=== PATIENT | female | born 1950 | race Caucasian/White ===

== ENCOUNTER → 2016-08-15 | Outpatient (CLI) | payer OTHER ==
[~2016-08-15] MED LIST: ATEN50TA8 PO; CITA20TA9 PO; CLON1TAB PO; DIPH-437 PO; DYZ PO; FIBER PO; GEMF600T3 PO; LEVO175T3 PO; MELO15TA4 PO; SENNTAB23 PO; TRAMTAB5 PO
--- NOTE | 2016-08-21 08:47 | POLYSOMNOGRAPH REPORT ---
REFERRING PERSON: Dr. Rasta Gutiérrez. LIVE SOURCE OPERATOR: Adilia Perez. PRIMARY CARE PHYSICIAN: Dana Gill DO Ms. Cline presents to the sleep lab for a split night sleep study. She states she always feels exhausted and snores heavily. She has a lot of joint pain. Her Ransom Sleepiness Scale score on the evening of this study is not listed. BMI is 34.17. Following the technical and digital specifications of the [employer] (AASM) a standard diagnostic polysomnogram was performed monitoring EEG, EOG, EMG (chin and leg deviations), oxygen saturation, body position, digital video, respiratory effort and airflow. The sleep Stage and event scoring was based on the AASM Manual for the Scoring of Sleep and Associated Events 2007 edition. Apneas are defined as a drop in the peak thermal sensor excursion by >90% of baseline for at least 10 seconds. Hypopneas were scored using the 4% oxygen desaturation rule (4A-[employer]) and a decrease in the nasal pressure excursions by >30% of baseline for at least 10 seconds. Respiratory effort-related arousal (RERA's) is defined as a sequence of breaths lasting at least 10 seconds characterized by increasing respiratory effort or flattening of the nasal pressure waveform leading to an arousal from sleep when the sequence of breaths does not meet criteria for an apnea or hypopnea. Apnea Hypopnea index (AHI) is defined as the number of apneas and hypopneas occurring in an hour of sleep. Respiratory disturbance index (RDI) is defined as the number of apneas, hypopneas, and RERA's occurring in an hour of sleep. Ms. Sousa total sleep period time was 329.5 minutes. Total sleep time was 289 minutes. Sleep efficiency was 75%. Latency to sleep onset was 51.5 minutes with wake after sleep onset of 44 minutes. Total non-REM sleep time was 267.5 minutes. She spent 6% of that time in N1 sleep, 87% in N2 sleep and no time in N3 sleep. This is abnormal non-REM sleep architecture with a propensity for superficial sleep. REM latency was 308 minutes. Total REM sleep time was 21.5 minutes or 7% of total sleep time. There were 50 cortical arousals from sleep. 27 of these arousals were spontaneous, 2 were due to respiratory event, 3 due to periodic limb movements of sleep and 20 were due to snoring. There were 80 periodic limb movements noted on this test. Limb movement index was 16.6. Limb movement with arousal index was 0.6. There were no central, 1 obstructive, and no mixed apneas on this test. There were 17 hypopneas and 1 RERA. Apnea-hypopnea index was 3.7, which is normal. 2810 snoring events were recorded. Total sleep time with snoring was 18.1%. Mean saturation during sleep was normal at 92%. Saturations were only less than 89% for 2.1 minutes of sleep time. Premature ventricular complexes were noted on EKG monitoring on this test. Heart rates ranged from a low of 46 to a high of 73 beats per minute. IMPRESSION AND PLAN: A 66-year-old female without evidence of sleep-disordered breathing or nocturnal hypoxemia on this study. She did have some significant snoring. 1. This patient may benefit from oral appliance therapy or ENT referral for primary snoring but she does not appear to have sleep-disordered breathing on this study.
--- NOTE | 2016-08-24 10:08 | CODING QUERY MEDICAL NECESSITY ---
SUPPORTING DIAGNOSIS NEEDED Dr. Gutiérrez, A supporting diagnosis is required for the test/procedure performed on this patient in order for us to be reimbursed by the patient's insurance. Please provide a supporting diagnosis for the following test/procedure listed below next to the test name along with your signature. *If there is no additional diagnosis for this patient that would support the following test/procedure please document that below next to the test/procedure. Test(s)/Procedure(s) that require a supporting diagnosis: * ([id number]) SLEEP STUDY DIAGNOSIS: DATE OF SERVICE: 08/15/16 Provider Signature: Date: Thank you Abel Ko [facility] Information Management Once completed, please kindly fax back to [phone] For questions please call [phone]
== END | disposition home or self-care (01) ==
LOC: C.NEUR 20:00
PROVIDERS: ATTEND Family Medicine
DX: R06.83 Snoring (principal); G47.33 Obstructive sleep apnea (adult) (pediatric)

== ENCOUNTER 2017-05-07 20:17 | Emergency (ER) | payer OTHER ==
[~2017-05-07] VITALS: Ht 152.4 cm; Wt 78.3 kg
[2017-05-07 20:21] VITALS: TEMP 37.6; Ht 152.4 cm; Wt 78.3 kg
[2017-05-07] MEDS ORDERED: BUPIVACAINE 0.25% 30 ML VIAL INFIL STA (20:45)
--- NOTE | 2017-05-07 21:30 | DIAGNOSTIC IMAGING REPORT ---
RIGHT FOURTH FINGER 3 VIEWS HISTORY: carmencita needle in right 4th finger COMPARISON: None. FINDINGS: There is no fracture or dislocation. Soft tissue swelling at the PIP joint. Severe degenerative changes within the DIP and PIP joints. There is a needlelike radiopaque foreign body with the tip likely adjacent to rather within the ulnar side of the PIP joint. This is likely located within the soft tissues and not the bone. IMPRESSION: There is a needlelike radiopaque foreign body with the tip likely adjacent to rather within the ulnar side of the PIP joint. This is likely located within the soft tissues and not the bone. No fractures. Electronically signed by: Thomas Hawkins M.D. 05/07/2017 9:29 PM Dictated Date/Time: 05/07/2017 9:26 PM
[2017-05-07] MEDS ORDERED: CEPH500C PO (21:42)
--- NOTE | 2017-05-07 21:44 | EMERGENCY ROOM VISIT NOTE ---
ED Visit Note First contact with patient: 20:33 CHIEF COMPLAINT: Puncture wound of the hand HISTORY OF PRESENT ILLNESS: This 66-year-old female presents to the emergency department with complaint of puncture wound to the right hand. She states she was reaching into her sewing box and when she pulled her hand out, she had a small fine point carmencita needle stuck in her fourth finger. This occurred approximately one hour ago. The finger has become significantly painful and mildly swollen. The patient was unable to remove the needle from her finger at home, she presents to have this removed here. Her tetanus is up-to-date. She denies any other injuries or concerns. Patient is not diabetic and she is not on any blood thinners. REVIEW OF SYSTEMS: GENERAL: No fever or chills, easy fatigue, loss of appetite, or significant weight change. NEUROLOGICAL: No headache, change in mental status, weakness, numbness, or dizziness. PMH: Reviewed in chart. SOCIAL HISTORY: Patient lives at home. She is not a smoker. PHYSICAL EXAM: Vital Signs: Reviewed Nurse's notes. There is a carmencita needle with the tip lodged deep into the right fourth finger adjacent to the DIP joint. There is mild swelling on the lateral aspect of the finger and tenderness to palpation. Range of motion of the finger is severely limited due to pain. Sensation is intact in the fingertip to light touch. Brisk cap refill. There is no injury noted to the rest of the hand. EMERGENCY DEPARTMENT COURSE: I examined the patient. An x-ray of the right fourth finger was performed to identify the exact location of the needle tip. The needle appears to travel adjacent to and not through the DIP joint or bone. No fracture identified. Verbal consent was obtained from the patient to perform the procedure. A digital block of the right fourth finger was performed using 0.25% bupivacaine. After achieving appropriate anesthesia with digital block, and the surrounding skin was fully cleansed with Betadine solution, the carmencita needle was gently pushed through the cleansed skin applying a steady pressure. The tip was cut using metal cutters. The needle was then pulled back through the insertion site without difficulty. Patient was able to fully flex and extend the DIP after removal of the needle. The wound was allowed to bleed freely for 1 minute, bleeding was then easily controlled. The wound was again cleansed with Betadine and saline. Antibiotic ointment and a Band-Aid were applied to the puncture wounds. Patient tolerated the procedure well. Patient was given a dose of Keflex and sent out on prophylaxis, as well as instructed on close monitoring for developing infection. Patient was instructed to follow closely with her PCP, she verbalized understanding. The patient was discharged home in stable condition and ambulatory. Problem List Medical Problems: (1) Brain tumor Status: Resolved (2) Depression Status: Chronic (3) Hypertension Status: Chronic (4) Hypothyroidism Status: Chronic Current/Historical Medications Scheduled Atenolol (Tenormin), 50 MG PO DAILY Cephalexin Monohydrate (Keflex), 500 MG PO QID Citalopram Hydrobromide (Celexa), 20 MG PO DAILY Gemfibrozil (Lopid), 600 MG PO BID Levothyroxine Sodium (Synthroid), 175 MCG PO DAILY Meloxicam (Mobic), 15 MG PO DAILY Triamterene/Hctz (Dyazide 37.5MG/25MG *), 1 CAP PO DAILY Scheduled PRN Clonazepam (Klonopin), 1 MG PO HS PRN for unkn Tramadol/Acetaminophen (Ultracet), 1 TAB PO Q4 PRN for Pain Allergies Coded Allergies: Procaine (Verified Allergy, Unknown, UNKN, 05/07/17) Aspirin (Verified Adverse Reaction, Unknown, BLEEDING, 05/07/17) Ibuprofen (Unverified Adverse Reaction, Unknown, BLEEDING, 05/07/17) Vital Signs Date Time Temp Pulse Resp B/P (MAP) Pulse Ox O2 Delivery O2 Flow Rate FiO2 05/07/17 22:03 70 18 139/82 98 Room Air 05/07/17 20:21 37.6 70 18 205/78 98 Room Air Medications Administered Medications (Trade) Dose Ordered Sig/Ruby Route Start Time Stop Time Status Last Admin Dose Admin Cephalexin Monohydrate (Keflex 500MG Home Pack) 1 homepack STK-MED ONCE PO 05/07/17 21:57 05/07/17 21:58 DC 05/07/17 21:57 1 HOMEPACK Cephalexin Monohydrate (Keflex Cap) 500 mg STK-MED ONCE PO 05/07/17 21:58 05/07/17 21:59 DC 05/07/17 22:03 500 MG Departure Information Impression Primary Impression: Puncture wound of right ring finger with foreign body without damage to nail Dispostion Home / Self-Care Condition GOOD Prescriptions Cephalexin Monohydrate (Keflex) 500 Mg Cap 500 MG PO QID for 4 Days, #16 CAP Prov: Angela Kinsey CRNP 05/07/17 Referrals Dana Gill D.O. (PCP) Patient Instructions ED Puncture Wound [place] Removed, [facility] Additional Instructions Apply ice to your finger for the next 24 hours to help reduce pain and swelling. Tylenol or ibuprofen as needed for pain. Take as directed. You were prescribed Keflex to be taken 4 times a day for 5 days. This is an antibiotic and is to help prevent infection from developing in your finger. All antibiotics have the potential to cause diarrhea. Stop this medication and contact a medical provider if you were to develop any significant adverse side effects including: wheezing, shortness of breath, passing out, vomiting, or a diffuse rash. Always take antibiotics as directed and COMPLETE the ENTIRE course regardless of the improvement of your symptoms. Monitor the area closely for signs of infection such as redness, swelling, increasing pain, streaking up the hand, fever/chills, or pus drainage. Please seek immediate medical attention if any of these signs or symptoms occur. Problem Qualifiers Primary Impression: Puncture wound of right ring finger with foreign body without damage to nail Encounter type: initial encounter Qualified Codes: S61.244A - Puncture wound with foreign body of right ring finger without damage to nail, initial encounter
[2017-05-07] MEDS ORDERED: CEPHALEXIN MONOHYDRATE 250 MG CAP PO ONE ×2 (21:45→21:58)
[2017-05-07] MEDS ORDERED: CEPHALEXIN 500MG HOME PACK 1 EA BTL PO ONE ×2 (21:45→21:57)
[2017-05-07] MEDS ORDERED: LEVO175T PO (21:46)
[2017-05-07 22:03] VITALS: BP 139/82; PULSE 70; O2SAT 98
== END 2017-05-07 22:05 | disposition home or self-care (01) ==
LOC: C.EDB 20:19 → C.EDD 22:05
DX: S61.244A Puncture wound with foreign body of right ring finger without damage to nail, initial encounter (principal); W27.3XXA Contact with needle (sewing), initial encounter; Z85.841 Personal history of malignant neoplasm of brain; F32.9 Major depressive disorder, single episode, unspecified; I10 Essential (primary) hypertension; E03.9 Hypothyroidism, unspecified

== ENCOUNTER 2018-02-24 23:47 | Emergency (ER) | payer OTHER ==
[~2018-02-24] VITALS: Ht 152.4 cm; Wt 77.0 kg
[~2018-02-24 23:47] MED LIST changes: -DIPH-437 PO; -FIBER PO; +LEVO175T PO; -LEVO175T3 PO; +MELO-84 PO; -MELO15TA4 PO; -SENNTAB23 PO
[2018-02-24 23:57] VITALS: TEMP 36.6; Ht 152.4 cm; Wt 77.0 kg
[2018-02-25] MEDS ORDERED: OPTIRAY 320 IV PRN (00:45)
[2018-02-25] MEDS ORDERED: FENTANYL CITRATE INJ 50 MCG/1 ML 2 ML VIAL IV ONE (00:45)
[2018-02-25] MEDS ORDERED: DIPHTHERIA/TETANUS/PERTUSSIS 0.5 ML SYR/VIAL IM. ONE (00:45)
--- NOTE | 2018-02-25 00:57 | EMERGENCY ROOM VISIT NOTE ---
History Report prepared by Dustin: Yolie Espinal Under the Supervision of: Dr. Agatha De Luna D.O. 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 The patient notes she got pulled down and she hit her head on the steps and her hip on the pavers. She states her dog kept pulling her and the leash got wrapped around her and she felt blood on her head. When she wiggled out of the leash, she could not get up because she was very shaky. She states her head is throbbing but she denies any neck pain or abdominal pain. When asked, the patient knows the date and the day of the week. The patient is not on any blood thinners as she states she "bleeds too freely." She is unsure of when her last tetanus shot was. 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 A total of 10 systems reviewed and were otherwise negative. Past Medical & Surgical Medical Problems: (1) Brain tumor (2) Depression (3) Hypertension (4) Hypothyroidism Social History Smoking Status: Never Smoker Marital Status: Housing Status: lives alone Occupation Status: unemployed, disabled Current/Historical Medications Scheduled Amlodipine Besylate (Norvasc), 2.5 MG PO DAILY Citalopram Hydrobromide (Celexa), 20 MG PO DAILY Clonazepam (Klonopin), 1 MG PO HS Ferrous Sulfate (Ferrous Sulfate), 325 MG PO BID Gemfibrozil (Lopid), 600 MG PO BID Levothyroxine Sodium (Synthroid), 175 MCG PO DAILY Magnesium (Magnesium 250 mg), 250 MG PO BID Meloxicam (Mobic), 15 MG PO DAILY Metoprolol Succinate (Metoprolol Succinate ER), 50 MG PO DAILY Triamterene/Hctz (Maxzide 75MG/50MG), 1 TAB PO DAILY Scheduled PRN Oxycodone/Acetaminophen 5MG/325MG (Percocet 5MG/325MG), 2 TABLETS PO Q4H PRN for Pain Tramadol/Acetaminophen (Ultracet), 1 TAB PO Q4 PRN for Pain Allergies Coded Allergies: Procaine (Verified Allergy, Unknown, UNKN, 02/25/18) Aspirin (Verified Adverse Reaction, Unknown, BLEEDING, 02/25/18) Ibuprofen (Unverified Adverse Reaction, Unknown, BLEEDING, 02/25/18) Physical Exam Vital Signs Date Time Temp Pulse Resp B/P (MAP) Pulse Ox O2 Delivery O2 Flow Rate FiO2 02/25/18 03:30 93 16 148/73 98 Room Air 02/25/18 03:04 93 02/25/18 03:00 99 10 117/78 97 Room Air 02/25/18 02:30 87 13 140/61 97 Room Air 02/25/18 02:00 77 10 143/60 94 Room Air 02/25/18 01:52 75 20 139/74 99 Room Air 02/25/18 01:00 76 22 98 Room Air 02/25/18 00:30 76 22 99 Room Air 02/25/18 00:00 72 14 100 Room Air 02/24/18 23:59 68 02/24/18 23:57 36.6 68 22 193/65 100 Room Air Physical Exam HEENT: Head - normocephalic. 4 cm laceration to the back of her head with a large surrounding hematoma. Pupils are equal, round, and reactive to light. Extraocular eye muscles are intact and sclera are anicteric. Ears - bilaterally patent canals with no evidence of hemotympanum. Nose - moist nasal mucosa without evidence of trauma or discharge. Mouth - moist buccal mucosa with no trauma to the teeth or signs of malocclusion. Neck: The neck is supple and there is no pain to palpation over the posterior cervical spine and no obvious step-offs or deformities. There is no JVD or tracheal deviation. Chest: There are no signs of deformities, contusions or abrasions to the chest wall. There is no obvious crepitus or paradoxical chest rise. Heart: Regular, rate, and rhythm. There is a normal S1 and S2 with no murmurs, clicks, or gallops appreciated. Lungs: Clear to auscultation bilaterally with no wheezes, rales, or rhonchi. Abdomen: Soft, completely nontender, nondistended, with good bowel sounds. There is no sign of trauma such as contusions, abrasions or penetrations. There are no palpable pulsatile masses or hepatosplenomegaly. There is no guarding, rigidity, or rebound noted. Pelvis: Stable to rock and compression. Extremities: Abrasion of the left shoulder and left bicep region. Abrasion over her left forearm. Superficial laceration over the left buttock. There is a large hematoma over the left buttocks. abrasions on the first and second metatarsals of the right foot. Pain with ROM. There are easily palpable peripheral pulses. Neuro: The patient is awake and alert and easily able to follow commands. Muscle strength is 5 out of 5 in all 4 extremities. Otherwise, neuro exam is unremarkable. Back: Pain over the lower thoracic spine. The entire thoracic, lumbar, and sacral spine were palpated. There are no obvious step-offs or deformities noted. There are no obvious signs of trauma such as contusions abrasions penetrations noted to the back. Medical Decision & Procedures ER Provider Diagnostic Interpretation: Radiology results as stated below per my review and the radiologist's interpretation: CT HEAD Findings: Previous craniotomy left frontal bone. Area of encephalomalacia left frontal lobe. No evidence for intracranial hemorrhage or hematoma. No mass effect or midline shift. No evidence for skull fracture. Impression: No acute abnormality in the brain. CT T SPINE Findings: Degenerative changes which are mild throughout the thoracic spine. There is preservation normal thoracic vertebral body heights with no evidence for fracture. No evidence for malalignment. Impression: No evidence for fracture or malalignment thoracic spine. CT ABDOMEN & PELVIS With CONTRAST Findings: The lung bases are clear. The liver and spleen are normal in size and free of mass lesions.The gallbladder, bile ducts, and pancreas are normal. The adrenal gland are unremarkable. The kidneyes are normal in size and contour. No lesion or hydronephrosis. The appendix is unremarkable, as if the rest of the GI tract. Aorta is normal caliber. No adenopathy or extraluminal air. The osseous structures are normal. Large soft tissue hematoma noted superficial to the left initial tuberosity. The hematoma meausues approximately 8 cm x 3 cm and 9 cm in size. No evidence for fracture the pelvis. Impression: Normal enhanced CT of the abdomen and pelvis CT L SPINE Findings: No evidence for fracture lumbar spine. No evidence for fracture the sacrum. Appears to be prior fusion L5-S1. Degenerative changes noted L4-5 ad L2-3 lesser extent L1-2. Impression: No evidence for fracture the lumbar spine or scarum. Radiologist: Bryce Montague MD Laboratory Results 02/25/18 00:50 Red Blood Count 5.30, Mean Corpuscular Volume 79.4, Mean Corpuscular Hemoglobin 28.7, Mean Corpuscular Hemoglobin Concent 36.1, Mean Platelet Volume 11.4, Neutrophils (%) (Auto) 76.1, Lymphocytes (%) (Auto) 12.5, Monocytes (%) (Auto) 7.8, Eosinophils (%) (Auto) 3.0, Basophils (%) (Auto) 0.5, Neutrophils # (Auto) 7.24, Lymphocytes # (Auto) 1.19, Monocytes # (Auto) 0.74, Eosinophils # (Auto) 0.29, Basophils # (Auto) 0.05 02/25/18 00:50 Test 02/25/18 00:50 White Blood Count 9.52 K/uL (4.8-10.8) Red Blood Count 5.30 M/uL (4.2-5.4) Hemoglobin 15.2 g/dL (12.0-16.0) Hematocrit 42.1 % (37-47) Mean Corpuscular Volume 79.4 fL (80-100) Mean Corpuscular Hemoglobin 28.7 pg (25-34) Mean Corpuscular Hemoglobin Concent 36.1 g/dl (32-36) Platelet Count 146 K/uL (130-400) Mean Platelet Volume 11.4 fL (7.4-10.4) Neutrophils (%) (Auto) 76.1 % Lymphocytes (%) (Auto) 12.5 % Monocytes (%) (Auto) 7.8 % Eosinophils (%) (Auto) 3.0 % Basophils (%) (Auto) 0.5 % Neutrophils # (Auto) 7.24 K/uL (1.4-6.5) Lymphocytes # (Auto) 1.19 K/uL (1.2-3.4) Monocytes # (Auto) 0.74 K/uL (0.11-0.59) Eosinophils # (Auto) 0.29 K/uL (0-0.5) Basophils # (Auto) 0.05 K/uL (0-0.2) RDW Standard Deviation 38.7 fL (36.4-46.3) RDW Coefficient of Variation 13.5 % (11.5-14.5) Immature Granulocyte % (Auto) 0.1 % Immature Granulocyte # (Auto) 0.01 K/uL (0.00-0.02) Anion Gap 9.0 mmol/L (3-11) Est Creatinine Clear Calc Drug Dose 55.9 ml/min Estimated GFR () 75.7 Estimated GFR (Non- 65.3 BUN/Creatinine Ratio 31.5 (10-20) Calcium Level 9.4 mg/dl (8.5-10.1) Laboratory results per my review. Medications Administered Medications (Trade) Dose Ordered Sig/Ruby Route Start Time Stop Time Status Last Admin Dose Admin Fentanyl Citrate (Fentanyl Inj) 75 mcg NOW ONCE IV 02/25/18 00:45 02/25/18 00:46 DC 02/25/18 00:45 75 MCG Diphtheria/ Pertussis/Tetanus Vacc (Adacel Inj) 0.5 ml ONCE ONCE IM. 02/25/18 00:45 02/25/18 00:46 DC 02/25/18 01:02 0.5 ML Oxycodone/ Acetaminophen (Percocet 5-325mg Tab) 2 tab NOW ONCE PO 02/25/18 03:30 02/25/18 03:31 DC 02/25/18 03:23 2 TAB Procedure Adacel Inj 0.5 ml IM, Fentanyl Inj 75 mcg IV, Oxycodone/Acetaminophen PO Location: Scalp Total length: 4 cm Complexity: Simple Verbal consent was obtained after the risks and benefits were explained, A time out was taken and the correct patient and site identified. The scalp was prepped with betadine. The target area was anesthetized with 4 ml of 1% lidocaine without epinephrine. Copious irrigation was performed using saline. The skin was re-prepped with betadine, the hair cleared from the wound, and a sterile field set. The wound was explored for foreign bodies and none found. Debridement was not performed. The wound edges were approximated using 9 surgical alphonse in the standard fashion. Hemostasis and excellent approximation was achieved. Antibacterial ointment and a sterile dressing applied. Detailed wound care instructions and signs and symptoms of infection reviewed with the patient. No complications and the patient tolerated the procedure well. ECG Per My Interpretation Indication: altered mental status Rate (beats per minute): 81 Rhythm: sinus rhythm Findings: no acute ischemic change, no ectopy, other (no ST segment elevation) ED Course 0027: Past medical records reviewed. The patient was evaluated in room C6. A complete history and physical exam was performed. Nursing notes and previous electronic medical records were reviewed. IV lock was established and labs were drawn as above. 0045: Ordered Adacel Inj 0.5 ml IM, Fentanyl Inj 75 mcg IV. The patient went for CT scan of the brain, abdomen/pelvis, thoracic spine and lumbar spine. 0206: I checked on the patient at this time. She is more comfortable. The nurse will clean up her head so I can further evaluate that 0330: I repaired the wound on the patient's head. Please see procedure note dictation for this. I used ultrasound to further evaluate the hematoma on the patient's left buttock. I attempted to drain the hematoma with an 18-gauge needle and a 60 cc syringe. I was not able to obtain very much blood. Ordered Oxycodone/Acetaminophen 2 tab PO 0335: I checked the PDMP at this time. There are no red flags. 0336: Upon reevaluation, the patient is feeling better. I discussed findings and results with her. She verbalized agreement of the treatment plan. She was discharged home. 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 Differential diagnosis include skull fracture, intracranial trauma, closed head injury, left hip fracture, pelvis fracture, L spine or T spine fracture, compartment syndrome of the buttocks, as well as others were entertained. Lab results show BUN 29 Creat 0.9 Glucose 125 WBC 9.5 Stable H and H This is a 67-year-old female patient who unfortunately was dragged to the ground by a dog. The patient did strike the back of her head but did not lose consciousness. She did have some altered mental status immediately following the incident. She also complained of severe pain in the left buttocks and low back. CT scan of the brain was unremarkable. CT scan of the abdomen/pelvis, thoracic spine and lumbar spine reveal no acute fractures, however the patient does have a large hematoma to the left buttock. The patient's pain was controlled with analgesia. I attempted to drain the hematoma for comfort but was unsuccessful. The patient was given a prescription for Percocet to use for her more severe discomfort. She was told to return to the emergency department if her symptoms worsened. Patient was encouraged to apply ice to the buttocks and rest with her head elevated. The alphonse can be removed in 10 days. [place] Drug Monitoring Program Search Results: patient reviewed within database, no issues identified Medication Reconcilliation Current Medication List: was personally reviewed by me Blood Pressure Screening Patient's blood pressure: Elevated blood pressure Blood pressure disposition: Elevated BP felt to be situational Impression Primary Impression: Scalp laceration Additional Impressions: Traumatic hematoma of buttock Fall Scribe Attestation The scribe's documentation has been prepared under my direction and personally reviewed by me in its entirety. I confirm that the note above accurately reflects all work, treatment, procedures, and medical decision making performed by me. Departure Information Dispostion Home / Self-Care Prescriptions Oxycodone/Acetaminophen 5MG/325MG (PERCOCET 5MG/325MG) Tab 2 TABLETS PO Q4H Y for Pain, #20 TAB Prov: Agatha De Luna D.O. 02/25/18 Referrals Dana Gill D.O. (PCP) Forms HOME CARE DOCUMENTATION FORM, IMPORTANT VISIT INFORMATION Patient Instructions My [facility] Additional Instructions Rest. Apply ice to the buttocks then switch to heat. Keep abrasions clean with soap and water. Cover with antibiotic ointment Have alphonse removed in 10 days Follow up later today with your PCP for a recheck. percocet - 2 tabs. every 4-6 hours for pain over next 2-3 days. This medication can be addictive Problem Qualifiers Primary Impression: Scalp laceration Encounter type: initial encounter Qualified Codes: S01.01XA - Laceration without foreign body of scalp, initial encounter Additional Impressions: Traumatic hematoma of buttock Encounter type: initial encounter Qualified Codes: S30.0XXA - Contusion of lower back and pelvis, initial encounter Fall Encounter type: initial encounter Qualified Codes: W19.XXXA - Unspecified fall, initial encounter
[2018-02-25 01:01] LABS: BASO % 0.5 %; BASO ABS # 0.05 K/uL (0-0.2); EOS ABS # 0.29 K/uL (0-0.5); HEMATOCRIT 42.1 % (37-47); HEMOGLOBIN 15.2 g/dL (12.0-16.0); IG# 0.01 K/uL (0.00-0.02); LYMPH % 12.5 %; LYMPH ABS # 1.19 K/uL (1.2-3.4); MEAN CELL VOLUME 79.4 fL (80-100); MEAN CORPUSCULAR HEMOGLOBIN 28.7 pg (25-34); MEAN CORPUSCULAR HGB CONC 36.1 g/dl (32-36); MEAN PLATELET VOLUME 11.4 fL (7.4-10.4); MONO % 7.8 %; MONO ABS # 0.74 K/uL (0.11-0.59); NEUT % 76.1 %; NEUT ABS # 7.24 K/uL (1.4-6.5); PLATELET COUNT 146 K/uL (130-400); RED CELL DISTRIBUTION WIDTH CV 13.5 % (11.5-14.5); RED CELL DISTRIBUTION WIDTH SD 38.7 fL (36.4-46.3); WHITE BLOOD COUNT 9.52 K/uL (4.8-10.8)
[2018-02-25 01:19] LABS: CALCIUM 9.4 mg/dl (8.5-10.1); CREATININE 0.92 mg/dl (0.60-1.20); POTASSIUM 3.5 mmol/L (3.5-5.1)
[2018-02-25] MEDS ORDERED: AMLO2.5T PO (02:00)
[2018-02-25] MEDS ORDERED: TPRSR/50 PO (02:00)
[2018-02-25] MEDS ORDERED: FERR1TAB62 PO (02:01)
[2018-02-25] MEDS ORDERED: TRIA75TA53 PO (02:03)
[2018-02-25] MEDS ORDERED: MAGN250T3 PO (02:04)
[2018-02-25] MEDS ORDERED: LIDOCAINE 1% BUFFERED INJ 5 ML VIAL INFIL ONE (02:30)
[2018-02-25 03:30] VITALS: BP 148/73; PULSE 93; O2SAT 98
[2018-02-25] MEDS ORDERED: OXYCODONE/ACETAMINOPHEN 5-325 TAB PO ONE (03:30)
[2018-02-25] MEDS ORDERED: OXYC-57 PO (03:34)
--- NOTE | 2018-02-25 06:32 | DIAGNOSTIC IMAGING REPORT ---
CT HEAD WITHOUT CONTRAST (CT) CLINICAL HISTORY: Head pain status post trauma COMPARISON STUDY: By [id number] TECHNIQUE: Axial CT of the brain is performed from the vertex to the skull base. IV contrast was not administered for this examination. A dose lowering technique was utilized adhering to the principles of ALARA. CT DOSE: 2583.97 mGy.cm FINDINGS: No intra or extra-axial mass lesions are visualized. There is no CT evidence of acute cortical infarction. There is no evidence of midline shift. There is no acute hemorrhage. No calvarial fractures are visualized. There are minimal white matter hypodensities likely on a small vessel basis. There are postsurgical changes of a left frontal craniotomy. There is left frontal lobe encephalomalacia. There is no evidence of pathologic ventricular dilatation. There is no evidence of acute sinusitis. There is minor left parietal occipital scalp edema. IMPRESSION: No acute intracranial findings Electronically signed by: Avel Kate M.D. 02/25/2018 6:31 AM Dictated Date/Time: 02/25/2018 6:28 AM
--- NOTE | 2018-02-25 06:42 | DIAGNOSTIC IMAGING REPORT ---
CT ABD/PELVIS IV CONTRAST ONLY CLINICAL HISTORY: Abdominal and pelvic pain status post trauma COMPARISON STUDY: None. TECHNIQUE: Following the IV administration of 92 mL of Optiray-320, CT scan of the abdomen and pelvis was performed from the lung bases to the proximal femurs. Images are reviewed in the axial, sagittal, and coronal planes. IV contrast was administered without complication. A dose lowering technique was utilized adhering to the principles of ALARA. CT DOSE: FINDINGS: Lower chest: There is minor basilar atelectasis. There is an 11 mm lung cyst within the right middle lobe. Liver: There is mild hepatic steatosis. No focal masses are visualized. There are no perihepatic fluid collections. Gallbladder: Surgically absent Spleen: The spleen is mildly enlarged measuring 13 cm. Pancreas: Unremarkable. Adrenal glands: Unremarkable. Kidneys: There is no evidence of acute renal injury. There is a 1 cm left renal hypodensity which exceeds water attenuation and is therefore indeterminate. Additional smaller subcentimeter hypodensities are also present. Bowel: There are no transition zones indicate bowel obstruction. There are no extraluminal gas collections. There is no interloop fluid. The appendix appears normal. There is no acute diverticulitis. Peritoneum: There is no intraperitoneal free air or abdominal ascites. Vasculature: The abdominal aorta is normal in course and caliber. Adenopathy: None. Pelvic viscera: The bladder, and pelvic viscera are unremarkable. Skeletal structures: No destructive osseous lesions are seen. No fractures are evident. There is a left gluteal and posterior sacral region soft tissue hematoma measuring 8.3 x 3.1 x 11 cm. IMPRESSION: 1. No evidence of solid organ injury 2. Left gluteal and posterior sacral region soft tissue hematoma measuring approximately 8 x 3 x 11 cm. Electronically signed by: Avel Kate M.D. 02/25/2018 6:40 AM Dictated Date/Time: 02/25/2018 6:33 AM
--- NOTE | 2018-02-25 06:44 | DIAGNOSTIC IMAGING REPORT ---
THORACIC SPINE WITHOUT CT DOSE: HISTORY: Pain eval for fracture - fall TECHNIQUE: Multiaxial CT images of the thoracic spine were performed and reformatted in the sagittal and coronal plane without the use of contrast. A dose lowering technique was utilized adhering to the principles of ALARA. COMPARISON: None. FINDINGS: No fractures. No subluxation. Paraspinal soft tissues are unremarkable. Moderate degenerative disc change throughout. No evidence for compression deformity. No evidence of bony compromise of the spinal canal. IMPRESSION: Mild/moderate degenerative change. No acute process. The above report was generated using voice recognition software. It may contain grammatical, syntax or spelling errors. Electronically signed by: Bruno León M.D. 02/25/2018 6:42 AM Dictated Date/Time: 02/25/2018 6:41 AM
--- NOTE | 2018-02-25 07:07 | DIAGNOSTIC IMAGING REPORT ---
LUMBAR SPINE WITHOUT HISTORY: 67 years-old Female reconstruct from abd/pelvis CT - eval for fx acute low back pain status post fall COMPARISON: Thoracic spine CT and CT abdomen and pelvis of same day. TECHNIQUE: Multiple axial CT images of the lumbar spine were obtained without the use of IV contrast. Coronal and sagittal reformatted images were obtained from the axial data set and were submitted for review. A dose lowering technique was used consistent with the principals of ALARA. FINDINGS: Bones appear mildly demineralized. Study is limited secondary to patient positioning. Mild convex right curvature of the mid lumbar spine. No evidence of acute sacral insufficiency fracture. The imaged sacrum and iliac bones appear to be intact. Moderate degenerative changes of the SI joints. Severe facet arthrosis at L3-L4, L4-L5 and L5-S1. Severe intervertebral disc space narrowing with partial bony fusion at L5-S1. 5 mm anterolisthesis L4 on L5 is likely on a degenerative basis. Vacuum disc phenomenon noted at L2-L3 and L4-L5. Moderate L4-L5 intervertebral disc space narrowing. Multilevel spondylitic spurring without acute fracture or subluxation. Broad-based posterior disc bulge with spondylitic spurring, ligamentum flavum thickening and facet arthropathy at L2-L3 causes moderate to severe central canal and mild bilateral foraminal narrowing. Circumferential annular disc bulge with severe facet arthrosis and ligamentum flavum thickening at L3-L4 causes severe central canal, mild to moderate right and mild left foraminal stenosis. Partially imaged hematoma of the subcutaneous left gluteal tissues better seen on CT abdomen and pelvis of same day. Extensive calcification of the aorta. IMPRESSION: 1. No acute fracture or subluxation of the lumbar spine. 2. Multilevel degenerative changes as detailed above with central canal and foraminal narrowing most notably seen at L2-L3 and L4-L5. 3. Partially imaged hematoma of the subcutaneous left gluteal tissues, better seen on CT abdomen and pelvis of same day. The above report was generated using voice recognition software. It may contain grammatical, syntax or spelling errors. Electronically signed by: Les Ramirez M.D. 02/25/2018 7:06 AM Dictated Date/Time: 02/25/2018 7:00 AM
== END 2018-02-25 03:55 | disposition home or self-care (01) ==
LOC: EDBD 23:47 → C.EDC 23:48
DX: S01.91XA Laceration without foreign body of unspecified part of head, initial encounter (principal); S31.801A Laceration without foreign body of unspecified buttock, initial encounter; S40.212A Abrasion of left shoulder, initial encounter; S50.812A Abrasion of left forearm, initial encounter; W01.198A Fall on same level from slipping, tripping and stumbling with subsequent striking against other object, initial encounter; Z23 Encounter for immunization; I10 Essential (primary) hypertension; E03.9 Hypothyroidism, unspecified; F32.9 Major depressive disorder, single episode, unspecified; Z79.899 Other long term (current) drug therapy; Z88.1 Allergy status to other antibiotic agents; Z88.6 Allergy status to analgesic agent

== ENCOUNTER 2020-01-09 17:39 | Inpatient (IN) ==
[2020-01-09 18:08] LABS: Basophils # (auto) 0.09 K/uL (0-0.2); Basophils % (auto) 1.3 %; Eosinophils # (auto) 0.46 K/uL (0-0.5); Eosinophils % (auto) 6.7 %; Hemoglobin 14.9 g/dL (12.0-16.0); Immature Granulocytes # (auto) 0.03 K/uL (0.00-0.02); Immature Granulocytes % (auto) 0.4 %; Lymphocytes # (auto) 1.97 K/uL (1.2-3.4); Lymphocytes % (auto) 28.6 %; Mean Corpuscular Hemoglobin 28.5 pg (25-34); Mean Corpuscular Hgb Conc 34.7 g/dL (32-36); Mean Corpuscular Volume 82.4 fL (80-100); Monocytes # (auto) 0.56 K/uL (0.11-0.59); Monocytes % (auto) 8.1 %; Neutrophils # (auto) 3.78 K/uL (1.4-6.5); Neutrophils % (auto) 54.9 %; Platelet Count 173 K/uL (130-400); RDW Coefficient of Variation 13.5 % (11.5-14.5); RDW Standard Deviation 40.2 fL (36.4-46.3); Red Blood Count 5.22 M/uL (4.2-5.4); White Blood Count 6.89 K/uL (4.8-10.8)
[2020-01-09 18:20] LABS: Partial Thromboplastin Time 29.1 Seconds (21.0-31.0); Prothrombin Time 10.8 Seconds (9.0-12.0)
[2020-01-09 18:24] LABS: BUN Creatinine Ratio 33.1 (10-20); Blood Urea Nitrogen 37 mg/dl (7-18); Calcium 9.3 mg/dl (8.5-10.1); Carbon Dioxide 26 mmol/L (21-32); Chloride 104 mmol/L (98-107); Creatinine Clr Calc Pharmacy 44.1 ml/min; Est GFR (African American) 59.5; Est GFR (Non-African American) 51.3; Glucose 127 mg/dl (70-99); Lipase 236 U/L (73-393); Potassium 3.6 mmol/L (3.5-5.1); Sodium 137 mmol/L (136-145)
[2020-01-09 18:29] LABS: Troponin I < 0.015 ng/ml (0-0.045)
--- NOTE | 2020-01-09 18:29 | XRay Report ---
XR chest 2V PA/lateral HISTORY: 69 years-old Female Chest Pain acute atypical chest pain COMPARISON: None TECHNIQUE: PA and lateral views of the chest FINDINGS: Cardiomediastinal and hilar silhouettes are within normal limits. Lungs are mildly hyperinflated. No pneumothorax, pleural effusion, airspace consolidation or overt pulmonary edema. Bones of the chest a ppear grossly intact. Degenerative changes of the shoulders and spine. Mild rotation on the lateral v iew. Surgical clips of the upper abdomen suggest prior cholecystectomy. IMPRESSION: No acute process. ACT 112: Negative or not required by law. The above report was generated using voice recognition software. It may contain grammatical, syntax o r spelling errors. Electronically signed by: Les Ramirez M.D. 01/09/2020 6:28 PM
--- NOTE | 2020-01-09 19:01 | History & Physical Report ---
Date of Service January 09, 2020 Assessment & Plan (1) Chest pain: This is a 69yo F with a PMH of HTN, hypothyroidism, CKD III, high triglycerides and other medical problems listed below who was sent from PCP's office with worsening chest pain x 1 month. -Worsening intermittent CP x 1 month that was relieved today with NTG in PCP's office -Initial troponin negative. EKG with sinus bradycardia. CXR without acute process in chest -History of exercise stress test in 2018 that was indeterminate for inducible ischemia due to failure to achieve 85% of max HR, per records -Plan: Trend serial cardiac enzymes, fasting lipid panel and hgb a1c in AM, check 2D echo, repeat EKG in am, NPO after midnight for possible nuclear ST vs OP follow up -Routine cardiology consult placed (2) Hypertension: Continue Amlodipine, Maxzide, Toprol (3) Hypothyroidism: Continue levothyroxine (4) CKD (chronic kidney disease), stage III: Kidney function at baseline (5) Hypertriglyceridemia: Continue gemfibrozil DVT Ppx: SQ heparin Code status: FULL PCP: Elinor Dispo: Observation med tele. Plan to return home once medically stable. Patient seen in collaboration with Dr. Gutiérrez. Please see addendum. History of Present Illness Primary Care Provider: Dana Gill, This is a 69yo F with a PMH of HTN, hypothyroidism, CKD III, high triglycerides and other medical problems listed below who was sent from PCP's office with worsening chest pain x 1 month. Patient endorses intermittent left sided chest pain for the past month that lasts for 15-30 minutes at a time. Pain is described as a squeezing pain that is left sided with radiation to center of chest. Is made with with exertion but also occurs sometimes at rest. Denies associated SOB, nausea or vomiting. Denies history of GERD. Pain has been worse for the past few days and patient saw Dr. Aldrich in clinic today. Was ntg in clinic and pain completely resolved. Was then given a baby aspirin and sent to ED for further evaluation. Patient denies known history of CAD but did undergo exercise stress test in 2018 that was indeterminate for inducible ischemia due to failure to achieve 85% of max HR, per records. Currently, patient is chest pain free. Denies fever, chills, headache, lightheadedness, visual changes, cough, palpitations, shortness of breath, abdominal pain, nausea, vomiting, dysuria, constipation or diarrhea. History of epistaxis so was told to avoid aspirin and NSAIDs but has been tolerating baby aspirin for 2 weeks without issue. Also taking daily Meloxicam for arthritic pain. Allergies Allergy/AdvReac Type Severity Reaction Status Date / Time procaine Allergy Unknown UNKN Verified 01/09/20 19:13 aspirin AdvReac Mild BLEEDING Verified 01/09/20 19:58 ibuprofen AdvReac Unknown BLEEDING Unverified 01/09/20 19:13 Home Medications Home Medications Medication Instructions Recorded Confirmed Type amlodipine [Norvasc] 5 mg PO BID 01/09/20 01/09/20 History aspirin 81 mg PO QAM 01/09/20 01/09/20 History citalopram [Celexa] 20 mg PO QAM 01/09/20 01/09/20 History clonazepam [Klonopin] 1 mg PO HS 01/09/20 01/09/20 History ferrous sulfate [iron] 325 mg PO QAM 01/09/20 01/09/20 History gemfibrozil [Lopid] 600 mg PO BID 01/09/20 01/09/20 History levothyroxine [Synthroid] 150 mcg PO MOWEFR 01/09/20 01/09/20 History levothyroxine [Synthroid] 175 mcg PO SUTUTHSA 01/09/20 01/09/20 History magnesium citrate 100 mg PO BID 01/09/20 01/09/20 History meloxicam [Mobic] 15 mg PO HS 01/09/20 01/09/20 History metoprolol succinate [Toprol XL] 50 mg PO QAM 01/09/20 01/09/20 History tramadol-acetaminophen [Ultracet] 1 tab PO QID PRN 01/09/20 01/09/20 History triamterene-hydrochlorothiazid 1 tab PO QAM 01/09/20 01/09/20 History [Maxzide] Past Med/Surg History Medical History CKD (chronic kidney disease), stage III Hypertension (Chronic) Hypertriglyceridemia Hypothyroidism (Chronic) Thrombocytopenia Surgical History (Updated 01/09/20 @ 19:57 by Stefani Piper PA-C) History of meningioma of the brain History of partial hysterectomy Hx of appendectomy S/P cholecystectomy Family History Other Heart disease Stroke Social History Feels Safe at Home: Yes Smoking Status: Former smoker Hx Alcohol Use: No Hx Substance Use: No Review of Systems Review of Systems: At least ten systems reviewed and negative except as noted in the HPI. Physical Exam Physical Exam: Please see Dr. Gutiérrez's addendum for physical exam Results & Data Results & Data ([facility]) Vital Signs (Past 12 Hours) Vital Signs Temp Pulse Pulse Resp BP BP Pulse Ox 01/09/20 18:13 56 L 19 129/63 97 01/09/20 17:50 36.9 C 63 14 173/96 H 97 Laboratory Results Short CBC 01/09/20 01/09/20 01/09/20 Range/Units 17:50 17:50 17:50 WBC 6.89 (4.8-10.8) K/uL RBC 5.22 (4.2-5.4) M/uL Hgb 14.9 (12.0-16.0) g/dL Hct 43.0 (37-47) % MCV 82.4 (80-100) fL MCH 28.5 (25-34) pg MCHC 34.7 (32-36) g/dL RDW Std Deviation 40.2 (36.4-46.3) fL RDW Coeff of Quoc 13.5 (11.5-14.5) % Plt Count 173 (130-400) K/uL MPV 12.0 H (7.4-10.4) fL Immature Gran % (Auto) 0.4 % Neut % (Auto) 54.9 % Lymph % (Auto) 28.6 % [place] % (Auto) 8.1 % Eos % (Auto) 6.7 % Baso % (Auto) 1.3 % Immature Gran # (Auto) 0.03 H (0.00-0.02) K/uL Neut # (Auto) 3.78 (1.4-6.5) K/uL Lymph # (Auto) 1.97 (1.2-3.4) K/uL [place] # (Auto) 0.56 (0.11-0.59) K/uL Eos # (Auto) 0.46 (0-0.5) K/uL Baso # (Auto) 0.09 (0-0.2) K/uL PT 10.8 (9.0-12.0) Seconds INR 1.0 (0.9-1.1) APTT 29.1 (21.0-31.0) Seconds PTT Ratio 1.0 Sodium 137 (136-145) mmol/L Potassium 3.6 (3.5-5.1) mmol/L Chloride 104 (98-107) mmol/L Carbon Dioxide 26 (21-32) mmol/L Anion Gap 8.0 (3-11) BUN 37 H (7-18) mg/dl Creatinine 1.11 (0.6-1.2) mg/dl Est Cr Clr Drug Dosing 44.1 ml/min Est GFR ( Amer) 59.5 Est GFR (Non-Af Amer) 51.3 BUN/Creatinine Ratio 33.1 H (10-20) Glucose 127 H (70-99) mg/dl Calcium 9.3 (8.5-10.1) mg/dl Troponin I < 0.015 (0-0.045) ng/ml Lipase 236 (73-393) U/L BMP 01/09/20 17:50 Sodium 137 Potassium 3.6 Chloride 104 Carbon Dioxide 26 BUN 37 H Creatinine 1.11 Glucose 127 H Calcium 9.3 Cardiac Enzymes 01/09/20 Range/Units 17:50 Troponin I < 0.015 (0-0.045) ng/ml Diagnostic Findings CXR: IMPRESSION: No acute process. Supervising Physician Co-Signing Physician Notes History and physical exam performed by me. History significant for 69 year old woman with chest pain for the past few weeks, intermittent, not referred, occurs both at rest and exertion, reported as squeezing. Was started on aspirin by PCP 2 weeks ago. Was seen by PCP today and was given sublingual nitro which relieved chest pain. Physical exam General: Well nourished, well hydrated, no acute distress and not ill appearing Eyes: PERRL, conjunctivae normal, not pale, anicteric sclerae, EOM intact bilaterally ENMT: External ear and nose normal, oropharynx normal Neck: Normal visual inspection, no tracheal deviation, old surgical scar Respiratory: Normal respiratory effort, no respiratory distress, lungs clear to auscultation, no crackles and no wheezes Cardiovascular: Pulse is regular, bradycardic (50s-60s, patient reports this is normal for her) no pedal edema Chest (Breasts): Chest: normal inspection of chest, no chest wall tenderness Gastrointestinal (Abdomen): Abdomen is not distended, soft, non-tender to palpation, no guarding, no palpable hepatosplenomegaly, normal bowel sounds Musculoskeletal: No cyanosis or clubbing, all extremities motor strength 5/5 Neurologic: Alert and oriented x 3, No focal weakness, sensation grossly intact Trop is negative EKG tracing does not show any ischemic changes. -Chest pain Possible unstable angina Reported relief with nitro. Denied any other symptoms of possible esophageal dysmotility Will trend trop Get EKG security monitor Get Cardio consult. Will need stress testing SL nitro prn Lipid panel and A1c Other plans as detailed in Stefani Piper PA-C's note
--- NOTE | 2020-01-09 19:28 | Emergency Department Note ---
History of Present Illness General Chief Complaint: Chest Pain Time Seen by Provider: 01/09/20 17:51 History of Present Illness Provider Complaint: chest pain Onset (ago): month(s) 1 Duration: intermittent Onset: during rest Pain Location: substernal and left chest Pain Radiation: none Severity: moderate Maximum Pain Intensity: 5 Current Pain Intensity: 0 Quality: + other (Pressure) Relieved By: + nitroglycerin (Given in the PCPs office which completely resolved that the pain) Exacerbated By: + nothing Context: no recent surgery, no recent immobilization, no recent travel, no trauma/injury, no new medications and no history of DVT/PE Associated symptoms: no diaphoresis, no dyspnea, no syncope, no palpitations and no leg swelling Home Medications Home Medications Medication Instructions Recorded Confirmed Type amlodipine [Norvasc] 5 mg PO BID 01/09/20 01/09/20 History aspirin 81 mg PO QAM 01/09/20 01/09/20 History citalopram [Celexa] 20 mg PO QAM 01/09/20 01/09/20 History clonazepam [Klonopin] 1 mg PO HS 01/09/20 01/09/20 History ferrous sulfate [iron] 325 mg PO QAM 01/09/20 01/09/20 History gemfibrozil [Lopid] 600 mg PO BID 01/09/20 01/09/20 History levothyroxine [Synthroid] 150 mcg PO MOWEFR 01/09/20 01/09/20 History levothyroxine [Synthroid] 175 mcg PO SUTUTHSA 01/09/20 01/09/20 History magnesium citrate 100 mg PO BID 01/09/20 01/09/20 History meloxicam [Mobic] 15 mg PO HS 01/09/20 01/09/20 History metoprolol succinate [Toprol XL] 50 mg PO QAM 01/09/20 01/09/20 History tramadol-acetaminophen [Ultracet] 1 tab PO QID PRN 01/09/20 01/09/20 History triamterene-hydrochlorothiazid 1 tab PO QAM 01/09/20 01/09/20 History [Maxzide] Allergies Allergy/AdvReac Type Severity Reaction Status Date / Time procaine Allergy Unknown UNKN Verified 01/09/20 19:13 aspirin AdvReac Mild BLEEDING Verified 01/09/20 19:58 ibuprofen AdvReac Unknown BLEEDING Unverified 01/09/20 19:13 Past Med/Surg History Medical History CKD (chronic kidney disease), stage III Hypertension (Chronic) Hypertriglyceridemia Hypothyroidism (Chronic) Thrombocytopenia Surgical History (Updated 01/09/20 @ 19:57 by Stefani Piper PA-C) History of meningioma of the brain History of partial hysterectomy Hx of appendectomy S/P cholecystectomy Family History Other Heart disease Stroke Social History Preferred Language: Lithuanian Communication Ability: Effective Beliefs That Will Affect Care: Catholic Catholic Beliefs: Zoroastrianism Current Living Situation: Family Other Information That Helps Us Care for You: No Feels Safe at Home: Yes Safety Concerns: Feels Safe At This Time Smoking Status: Former smoker Hx Alcohol Use: No Hx Substance Use: No Review of Systems A total of 10 systems reviewed and were otherwise negative Physical Exam Vital Signs Vital Signs - 24 hr 01/09/20 17:46 01/09/20 17:50 01/09/20 17:52 Temperature 36.9 C Temperature Source Oral Pulse Rate 53 L 63 54 L Pulse Rate [Right Finger] Pulse Rate from SpO2 Sensor 53 L 54 L Respiratory Rate 13 14 14 Blood Pressure 173/79 H 173/96 H Blood Pressure [Right Arm] Blood Pressure Mean 119 121 Blood Pressure Mean [Right Arm] Pulse Oximetry 97 97 97 Oxygen Delivery Method Room Air Sepsis Recent Fever Within 48 Hours No Sepsis Action Taken by Nursing No Action Required 01/09/20 18:00 01/09/20 18:13 01/09/20 18:14 Temperature Temperature Source Pulse Rate 58 L Pulse Rate [Right Finger] 56 L Pulse Rate from SpO2 Sensor 56 L Respiratory Rate 16 19 Blood Pressure 129/63 Blood Pressure [Right Arm] 129/63 Blood Pressure Mean 84 Blood Pressure Mean [Right Arm] 85 Pulse Oximetry 97 97 Oxygen Delivery Method Sepsis Recent Fever Within 48 Hours Sepsis Action Taken by Nursing 01/09/20 18:30 Temperature Temperature Source Pulse Rate 57 L Pulse Rate [Right Finger] Pulse Rate from SpO2 Sensor Respiratory Rate 17 Blood Pressure Blood Pressure [Right Arm] Blood Pressure Mean Blood Pressure Mean [Right Arm] Pulse Oximetry Oxygen Delivery Method Sepsis Recent Fever Within 48 Hours Sepsis Action Taken by Nursing Physical Exam GENERAL: She is oriented to person, place, and time. She appears well-developed and well-nourished. She does not appear distressed. HENT: Exam performed. -Head: Normocephalic and atraumatic. -Right Ear: External ear normal. No mastoid tenderness. -Left Ear: External ear normal. No mastoid tenderness. -Mouth/Throat: The oropharynx is clear and moist. No trismus in the jaw. No dental abscesses or uvula swelling. No oropharyngeal exudate or tonsillar abscesses. EYES: Conjunctivae and EOM are normal. Pupils are equal, round, and reactive to light. Right eye exhibits no discharge. Left eye exhibits no discharge. No scleral icterus. NECK: Normal range of motion. Neck supple. No JVD present. No spinous process tenderness present. No carotid bruit present. No rigidity. No tracheal deviation and normal range of motion present. No Brudzinski's sign and no Kernig's sign noted. CV: Normal rate, regular rhythm, normal heart sounds and intact distal pulses. There is no peripheral edema. Palpable radial pulses bue. PULM/CHEST: Effort normal and breath sounds normal. No respiratory distress. No stridor. She has no wheezes. She has no rales. -Chest Wall: She exhibits no tenderness. ABD: The abdomen is soft. Bowel sounds are normal. She has no distension. No mass is present. There is no tenderness. There is no rebound, no guarding, no Huang's sign and no tenderness at McBurney's point. Rovsig negative MUSC/SKEL: Normal range of motion. There is no peripheral edema, tenderness or deformity. LYMPH: No cervical adenopathy. NEURO: She is alert and oriented to person, place, and time. She has normal strength. No cranial nerve deficit or sensory deficit. Coordination and gait normal. GCS eye subscore is 4. GCS verbal subscore is 5. GCS motor subscore is 6. Cerebellar tests wnl. SKIN: Skin is warm and dry. She is not diaphoretic. PSYCH: She has a normal mood and affect. Behavior is normal. Judgment and thought content normal. Course Course 1800: The patient was evaluated in room C12. A complete history and physical exam was performed. Cardiac monitoring: An order was placed for continuous cardiac monitoring. The monitor shows a rate of 60 with sinus rhythm 1900: Vital signs stable. Labs and imaging within normal limits. Patient will be admitted to the hospitalist service of [facility] for rule out ACS. Dr. Gutiérrez notified Administered Medications Amlodipine Besylate (Norvasc) 5 mg PO BID PETER Stop: 02/08/20 20:59 Last Admin: 01/09/20 21:10 Dose: 5 mg Documented by: [id number] Clonazepam (Klonopin) 1 mg PO HS PETER Stop: 02/08/20 20:59 Last Admin: 01/09/20 21:18 Dose: 1 mg Documented by: [id number] Gemfibrozil (Lopid) 600 mg PO BID PETER Stop: 02/08/20 20:59 Last Admin: 01/09/20 21:11 Dose: 600 mg Documented by: [id number] Heparin Sodium (Porcine) (Heparin Sodium (Porcine)) 5,000 units SQ Q8 PETER Stop: 02/08/20 21:59 Last Admin: 01/09/20 21:43 Dose: Not Given Documented by: [id number] Meloxicam (Mobic) 15 mg PO HS PETER Stop: 02/08/20 20:59 Last Admin: 01/09/20 21:11 Dose: 15 mg Documented by: [id number] Tramadol/Acetaminophen (Ultracet) 1 tab PO QID PRN PRN Reason: Pain Stop: 02/08/20 20:14 Last Admin: 01/09/20 21:18 Dose: 1 tab Documented by: [id number] Medical Decision Making Laboratory Data Result diagrams: 01/09/20 17:50 01/09/20 17:50 Labs: Lab Results 01/09/20 01/09/20 01/09/20 Range/Units 17:50 17:50 17:50 WBC 6.89 (4.8-10.8) K/uL RBC 5.22 (4.2-5.4) M/uL Hgb 14.9 (12.0-16.0) g/dL Hct 43.0 (37-47) % MCV 82.4 (80-100) fL MCH 28.5 (25-34) pg MCHC 34.7 (32-36) g/dL RDW Std Deviation 40.2 (36.4-46.3) fL RDW Coeff of Quoc 13.5 (11.5-14.5) % Plt Count 173 (130-400) K/uL MPV 12.0 H (7.4-10.4) fL Immature Gran % (Auto) 0.4 % Neut % (Auto) 54.9 % Lymph % (Auto) 28.6 % [place] % (Auto) 8.1 % Eos % (Auto) 6.7 % Baso % (Auto) 1.3 % Immature Gran # (Auto) 0.03 H (0.00-0.02) K/uL Neut # (Auto) 3.78 (1.4-6.5) K/uL Lymph # (Auto) 1.97 (1.2-3.4) K/uL [place] # (Auto) 0.56 (0.11-0.59) K/uL Eos # (Auto) 0.46 (0-0.5) K/uL Baso # (Auto) 0.09 (0-0.2) K/uL PT 10.8 (9.0-12.0) Seconds INR 1.0 (0.9-1.1) APTT 29.1 (21.0-31.0) Seconds PTT Ratio 1.0 Sodium 137 (136-145) mmol/L Potassium 3.6 (3.5-5.1) mmol/L Chloride 104 (98-107) mmol/L Carbon Dioxide 26 (21-32) mmol/L Anion Gap 8.0 (3-11) BUN 37 H (7-18) mg/dl Creatinine 1.11 (0.6-1.2) mg/dl Est Cr Clr Drug Dosing 44.1 ml/min Est GFR ( Amer) 59.5 Est GFR (Non-Af Amer) 51.3 BUN/Creatinine Ratio 33.1 H (10-20) Glucose 127 H (70-99) mg/dl Calcium 9.3 (8.5-10.1) mg/dl Troponin I < 0.015 (0-0.045) ng/ml Lipase 236 (73-393) U/L Imaging Data Chest x-ray: Radiologist's impression: XR chest 2V PA/lateral HISTORY: 69 years-old Female Chest Pain acute atypical chest pain COMPARISON: None TECHNIQUE: PA and lateral views of the chest FINDINGS: Cardiomediastinal and hilar silhouettes are within normal limits. Lungs are mildly hyperinflated. No pneumothorax, pleural effusion, airspace consolidation or overt pulmonary edema. Bones of the chest appear grossly intact. Degenerative changes of the shoulders and spine. Mild rotation on the lateral view. Surgical clips of the upper abdomen suggest prior cholecystectomy. IMPRESSION: No acute process. ACT 112: Negative or not required by law. The above report was generated using voice recognition software. It may contain grammatical, syntax or spelling errors. Electronically signed by: Les Ramirez M.D. 01/09/2020 6:28 PM Dictated: 01/09/201826 Transcribed: 01/09/201826 ECG Data Indication: chest pain Rate (beats per minute): 58 Rhythm: sinus bradycardia Findings: no ST depression and no ST elevation Additional Comments: UT QRS and QTc intervals were within normal limits. MDM Narrative Vital signs stable. Labs and imaging within normal limits. Patient will be admitted to the hospitalist service of [facility] for rule out ACS. Dr. Gutiérrez notified Impression & Plan Chest pain Discharge Plan Visit Data *Final* Discharge Date/Time: 01/09/20 19:36 Chief Complaint: Chest Pain ED Provider: Earle Parham Discharge Problem: Chest pain Patient Disposition: Admitted As Inpatient Discharge Instructions Interventions: ED Discharge Assessment Last Done: 01/09/20 19:36 Discharge Problem: Chest pain Qualifiers: Chest pain type: unspecified Qualified Code(s): R07.9 - Chest pain, unspecified
[2020-01-09] MEDS ORDERED: POLYETHYLENE (MIRALAX) 17 GM PACK PO PRN (20:15)
[2020-01-09] MEDS ORDERED: NITROGLYCERIN SL 0.4 MG/TAB TAB SL PRN (20:15)
[2020-01-09] MEDS ORDERED: ACETAMINOPHEN 325 MG TAB PO PRN (20:15)
[2020-01-09] MEDS ORDERED: NON-FORMULARY MEDICATION (Magnesium Citrate 100 MG) PO SCH (21:00)
[2020-01-09] MEDS: AMLODIPINE BESYLATE 5 MG TAB PO SCH (21:10)
[2020-01-09] MEDS: gemfibroziL 600 MG TAB PO SCH (21:11)
[2020-01-09] MEDS: MELOXICAM 7.5 MG TAB PO SCH (21:11)
[2020-01-09] MEDS: TRAMADOL/ACETAMINOPHEN 37.5/325MG TAB PO PRN (21:18)
[2020-01-09] MEDS: clonazePAM 1 MG TAB PO SCH (21:18)
[2020-01-09] MEDS: HEPARIN SOD 5,000 UNIT/0.5 ML VIAL SQ SCH (21:43)
[2020-01-10] MEDS: HEPARIN SOD 5,000 UNIT/0.5 ML VIAL SQ SCH ×3 (04:22→21:20)
[2020-01-10] MEDS: TRAMADOL/ACETAMINOPHEN 37.5/325MG TAB PO PRN ×3 (04:35→22:09)
[2020-01-10] MEDS: LEVOTHYROXINE SODIUM 175 MCG TABLET PO SCH ×2 (05:31→08:27)
--- NOTE | 2020-01-10 06:56 | Electrocardiogram Report ---
Test Reason : Blood Pressure : / mmHG Vent. Rate : 053 BPM Atrial Rate : 053 BPM P-R Int : 176 ms QRS Dur : 098 ms QT Int : 470 ms P-R-T Axes : 034 005 031 degrees QTc Int : 441 ms Sinus bradycardia Otherwise normal ECG When compared with ECG of 09-JAN-2020 17:45, No significant change was found Confirmed by Cachorro Majano ([id number]) on 01/10/2020 6:58:56 AM Also confirmed by Cachorro Majano ([id number]), senior editor Vish Meyesr ([id number]) on 01/15/2020 8:05:37 AM Also confirmed by Cachorro Majano ([id number]), senior editor Vish Meyers ([id number]) on 01/15/2020 8:06:57 AM Referred By: REFERRED SELF Confirmed By:Cachorro Majano
--- NOTE | 2020-01-10 06:59 | Electrocardiogram Report ---
Test Reason : Blood Pressure : / mmHG Vent. Rate : 058 BPM Atrial Rate : 058 BPM P-R Int : 176 ms QRS Dur : 096 ms QT Int : 446 ms P-R-T Axes : 053 005 028 degrees QTc Int : 437 ms Poor data quality, interpretation may be adversely affected Sinus bradycardia Otherwise normal ECG When compared with ECG of 25-FEB-2018 00:45, No significant change was found Confirmed by Cachorro Majano ([id number]) on 01/10/2020 6:56:42 AM Also confirmed by Cachorro Majano ([id number]), food editor Vish Meyers ([id number]) on 01/15/2020 8:06:13 AM Referred By: REFERRED SELF Confirmed By:Cachorro Majano
[2020-01-10] MEDS: CITALOPRAM 20 MG TAB PO SCH (08:22)
[2020-01-10] MEDS: FERROUS SULFATE 325 MG TAB PO SCH (08:22)
[2020-01-10] MEDS: ASPIRIN 81 MG ECTAB PO SCH (08:22)
[2020-01-10] MEDS: gemfibroziL 600 MG TAB PO SCH ×2 (08:22→16:07)
[2020-01-10] MEDS: AMLODIPINE BESYLATE 5 MG TAB PO SCH ×2 (08:23→21:10)
[2020-01-10] MEDS: TRIAMTERENE/HCTZ 37.5/25MG TAB PO SCH (08:23)
[2020-01-10] MEDS: METOPROLOL SUCC 50MG EXT REL TAB PO SCH (08:58)
--- NOTE | 2020-01-10 09:07 | Electrocardiogram Report ---
Test Reason : Blood Pressure : / mmHG Vent. Rate : 052 BPM Atrial Rate : 052 BPM P-R Int : 178 ms QRS Dur : 100 ms QT Int : 476 ms P-R-T Axes : 046 006 024 degrees QTc Int : 442 ms Sinus bradycardia Otherwise normal ECG When compared with ECG of 09-JAN-2020 19:45, No significant change was found Confirmed by Jose Luis Escalante ([id number]) on 01/10/2020 9:07:18 AM Referred By: REFERRED SELF Confirmed By:Jose Luis Escalante
[2020-01-10 09:37] LABS: Hematocrit (blood only) 42.6 % (37-47); Hemoglobin 14.5 g/dL (12.0-16.0); Mean Corpuscular Volume 82.4 fL (80-100); Mean Platelet Volume 11.7 fL (7.4-10.4); Platelet Count 158 K/uL (130-400); RDW Coefficient of Variation 13.4 % (11.5-14.5); Red Blood Count 5.17 M/uL (4.2-5.4); White Blood Count 5.57 K/uL (4.8-10.8)
[2020-01-10 10:02] LABS: Estimated Average Glucose 88 mg/dl; Hemoglobin A1C 4.7 % (4.5-5.6)
[2020-01-10 10:10] LABS: BUN Creatinine Ratio 27.7 (10-20); Calcium 9.1 mg/dl (8.5-10.1); Creatinine Clr Calc Pharmacy 46.6 ml/min; Est GFR (African American) 65.1; Est GFR (Non-African American) 56.2; Potassium 3.8 mmol/L (3.5-5.1)
--- NOTE | 2020-01-10 12:34 | Hospitalist Progress Note ---
Date of Service January 10, 2020 Assessment & Plan (1) Chest pain: This is a 69yo F with a PMH of HTN, hypothyroidism, CKD III, high triglycerides and other medical problems listed below who was sent from PCP's office with worsening chest pain x 1 month. -Worsening intermittent CP x 1 month that was relieved today with NTG in PCP's office -History of exercise stress test in 2018 that was indeterminate for inducible ischemia due to failure to achieve 85% of max HR, per records -Remains free of pain this morning and denies any other symptoms -Troponin x3 and EKG remain unremarkable for any ACS -Appreciate cardiology input and recommendation -We will have a stress test this afternoon and if negative will be sent home (2) Hypertension: Continue Amlodipine, Maxzide, Toprol Blood pressure is controlled (3) Hypothyroidism: Continue levothyroxine (4) CKD (chronic kidney disease), stage III: Kidney function at baseline (5) Hypertriglyceridemia: Continue gemfibrozil DVT Ppx: SQ heparin Code status: FULL PCP: Elinor Dispo: Observation med tele. Plan to return home once medically stable. Likely discharge home this afternoon following negative stress test Admission and Anticipated Discharge Date Admission Date: January 09, 2020 Subjective The patient was seen and examined in medical telemetry unit She was admitted with chest pain and so far there is no evidence of EKG and/or troponin changes suggestive of any ACS She is free of any pain and her symptoms this morning She will have a stress test this afternoon and likely to go home following that Review of Systems Review of Systems: All systems reviewed and are unremarkable except as noted below Cardiovascular: no chest pain and no palpitations Physical Exam Physical Exam: Lying in bed comfortably Constitutional: well developed and well nourished; no acute distress and not ill appearing Eyes: PERRL, conjunctivae normal, anicteric sclerae ENMT: external ear and nose normal, oropharynx normal Neck: trachea midline, no thyromegaly Respiratory: normal respiratory effort; no respiratory distress Auscultation: lungs clear to auscultation bilaterally Cardiovascular: Rate/Rhythm: regular rate and regular rhythm Heart Sounds: no murmur Gastrointestinal (Abdomen): Inspection/Auscultation: abdomen normal to inspection; abdomen not distended Percussion/Palpation: abdomen soft; abdomen nontender Musculoskeletal: No acute arthritis involving any joints Neurologic: moves all extremities; no focal motor deficits Lymphatic: no cervical or axillary lymphadenopathy Results & Data Results & Data ([facility]) Vital Signs (Past 12 Hours) Vital Signs Temp Pulse Pulse Resp BP Pulse Ox 01/10/20 11:19 36.6 C 53 L 18 106/65 96 01/10/20 07:38 53 L 01/10/20 07:26 36.9 C 53 L 18 122/72 96 01/10/20 03:06 36.5 C 52 L 20 122/55 L 95 Laboratory Results Short CBC 01/09/20 01/10/20 Range/Units 17:50 09:15 WBC 6.89 5.57 (4.8-10.8) K/uL Hgb 14.9 14.5 (12.0-16.0) g/dL Hct 43.0 42.6 (37-47) % Plt Count 173 158 (130-400) K/uL BMP 01/09/20 01/10/20 17:50 09:15 Sodium 137 141 Potassium 3.6 3.8 Chloride 104 105 Carbon Dioxide 26 29 BUN 37 H 29 H Creatinine 1.11 1.03 Glucose 127 H 96 Calcium 9.3 9.1 Cardiac Enzymes 01/09/20 01/10/20 01/10/20 Range/Units 17:50 00:11 09:15 Troponin I < 0.015 < 0.015 < 0.015 (0-0.045) ng/ml Medications Administered Current Inpatient Medications Acetaminophen (Tylenol) 650 mg PO Q4H PRN PRN Reason: Pain or Fever Stop: 02/08/20 20:14 Amlodipine Besylate (Norvasc) 5 mg PO BID [facility] Stop: 02/08/20 20:59 Last Admin: 01/10/20 08:23 Dose: 5 mg Documented by: Aspirin (Ecotrin Ectab) 81 mg PO QAM [facility] Stop: 02/09/20 08:59 Last Admin: 01/10/20 08:22 Dose: 81 mg Documented by: Citalopram Hydrobromide (Celexa) 20 mg PO QAM [facility] Stop: 02/09/20 08:59 Last Admin: 01/10/20 08:22 Dose: 20 mg Documented by: Clonazepam (Klonopin) 1 mg PO [facility] Stop: 02/08/20 20:59 Last Admin: 01/09/20 21:18 Dose: 1 mg Documented by: Ferrous Sulfate (Feosol) 325 mg PO QAM [facility] Stop: 02/09/20 08:59 Last Admin: 01/10/20 08:22 Dose: 325 mg Documented by: Gemfibrozil (Lopid) 600 mg PO BID [facility] Stop: 02/08/20 20:59 Last Admin: 01/10/20 08:22 Dose: 600 mg Documented by: Heparin Sodium (Porcine) (Heparin Sodium (Porcine)) 5,000 units SQ Q8 [facility] Stop: 02/08/20 21:59 Last Admin: 01/10/20 04:22 Dose: Not Given Documented by: Levothyroxine Sodium (Synthroid) 150 mcg PO MoWeFr@0630 [facility] Stop: 02/11/20 06:29 Levothyroxine Sodium (Synthroid) 175 mcg PO SuTuThSa@0630 [facility] Stop: 02/09/20 06:29 Last Admin: 01/10/20 08:27 Dose: 175 mcg Documented by: Meloxicam (Mobic) 15 mg PO HS [facility] Stop: 02/08/20 20:59 Last Admin: 01/09/20 21:11 Dose: 15 mg Documented by: Metoprolol Succinate (Toprol Xl) 50 mg PO QAM [facility] Stop: 02/09/20 08:59 Last Admin: 01/10/20 08:58 Dose: Not Given Documented by: Nitroglycerin (Nitrostat) 0.4 mg SL UD PRN PRN Reason: Chest Pain Stop: 02/08/20 20:14 Polyethylene Glycol (Miralax Powder Packet) 17 gm PO DAILY PRN PRN Reason: Constipation Stop: 02/08/20 20:14 Tramadol/Acetaminophen (Ultracet) 1 tab PO QID PRN PRN Reason: Pain Stop: 02/08/20 20:14 Last Admin: 01/10/20 04:35 Dose: 1 tab Documented by: Triamterene/HCTZ (Maxzide 37.5/25mg) [facility] Stop: 02/09/20 08:59 Last Admin: 01/10/20 08:23 Dose: 1 tab Documented by: (1) Chest pain Chest pain type: unspecified Qualified Code(s): R07.9 - Chest pain, unspecified
--- NOTE | 2020-01-10 13:14 | Cardiology Consultation ---
Date of Consultation January 10, 2020 Assessment & Plan (1) Chest pain: (2) Hypertension: (3) CKD (chronic kidney disease), stage III: (4) Hypertriglyceridemia: Given her description and progression of her chest discomfort I am concerned this may represent unstable angina. So far, ischemic work-up is been unremarkable but would like to proceed with stress testing for further evaluation. We will proceed with dobutamine stress echocardiogram at this time. Further recommendations to follow based on the above testing. History of Present Illness Reason for Consultation: Chest pain Requesting Physician: Dr. Aparicio Attending Physician: Scooter Aparicio MD History of Present Illness It was my pleasure to see Mrs. Mckinney in consultation today January 10, 2020. She is a very pleasant 69-year-old woman who does not routinely follow with a header dock. She was sent to [facility] emergency department on 01/09/2020 from her PCPs office with concerns of chest discomfort. She states that over the last 6 weeks has been noticing she is been having chest d iscomfort. She describes it as a dull pressure sensation across her left precordium. She states it can either happen at rest or with stress and the frequency has been increasing consistently. She was seen by her PCP on the she had chest pain in the office and was given sublingual nitroglycerin which completely resolved her discomfort. She states that the chest discomfort is also recently started radiating across to her right precordium but she denies any associated diaphoresis, shortness of breath, nausea or lightheadedness. States otherwise she is been in good health as of late. She did have some slight chest discomfort overnight that resolved on its own. She is currently discomfort free. Allergies Allergy/AdvReac Type Severity Reaction Status Date / Time procaine Allergy Unknown UNKN Verified 01/09/20 19:13 aspirin AdvReac Mild BLEEDING Verified 01/09/20 19:58 ibuprofen AdvReac Unknown BLEEDING Unverified 01/09/20 19:13 Home Medications Home Medications Medication Instructions Recorded Confirmed Type amlodipine [Norvasc] 5 mg PO BID 01/09/20 01/09/20 History aspirin 81 mg PO QAM 01/09/20 01/09/20 History citalopram [Celexa] 20 mg PO QAM 01/09/20 01/09/20 History clonazepam [Klonopin] 1 mg PO HS 01/09/20 01/09/20 History ferrous sulfate [iron] 325 mg PO QAM 01/09/20 01/09/20 History gemfibrozil [Lopid] 600 mg PO BID 01/09/20 01/09/20 History levothyroxine [Synthroid] 150 mcg PO MOWEFR 01/09/20 01/09/20 History levothyroxine [Synthroid] 175 mcg PO SUTUTHSA 01/09/20 01/09/20 History magnesium citrate 100 mg PO BID 01/09/20 01/09/20 History meloxicam [Mobic] 15 mg PO HS 01/09/20 01/09/20 History metoprolol succinate [Toprol XL] 50 mg PO QAM 01/09/20 01/09/20 History tramadol-acetaminophen [Ultracet] 1 tab PO QID PRN 01/09/20 01/09/20 History triamterene-hydrochlorothiazid 1 tab PO QAM 01/09/20 01/09/20 History [Maxzide] Patient History Medical History CKD (chronic kidney disease), stage III Hypertension (Chronic) Hypertriglyceridemia Hypothyroidism (Chronic) Thrombocytopenia Surgical History History of meningioma of the brain History of partial hysterectomy Hx of appendectomy S/P cholecystectomy Family History Other Heart disease Stroke Social History Preferred Language: Lithuanian Communication Ability: Effective Beliefs That Will Affect Care: Anabaptism Anabaptism Beliefs: [employer]aritan Current Living Situation: Family Other Information That Helps Us Care for You: No Feels Safe at Home: Yes Safety Concerns: Feels Safe At This Time Smoking Status: Former smoker Hx Alcohol Use: No Hx Substance Use: No Review of Systems Review of Systems: All systems reviewed & are unremarkable except as noted in HPI & below Physical Exam Physical Exam: General: Awake, alert and oriented x 3. No acute distress. HEENT: Normocephalic, atraumatic. Pupils equal, round and reactive to light and accommodation. Extraocular muscles are intact. Anicteric sclera. Moist mucous membranes. Neck: No JVD. No bruit. Cardiovascular: Regular. Positive S-4. Normal S-1 and S-2. No S-3. No murmurs or rubs. Pulmonary: Clear to auscultation B/L. No rales, rhonchi or wheezing Abdomen: Bowel sounds x 4, soft. No rebound, guarding or tenderness. No organomegaly. Extremities: No clubbing, cyanosis or edema. +2 pedal pulses bilaterally. Skin: Warm and dry. Results & Data ([facility]) Vital Signs (Past 12 Hours) Vital Signs Temp Pulse Pulse Resp BP Pulse Ox 01/10/20 11:19 36.6 C 53 L 18 106/65 96 01/10/20 07:38 53 L 01/10/20 07:26 36.9 C 53 L 18 122/72 96 01/10/20 03:06 36.5 C 52 L 20 122/55 L 95 Laboratory Results Laboratory Results - last 24 hr 01/09/20 01/09/20 01/09/20 17:50 17:50 17:50 WBC 6.89 RBC 5.22 Hgb 14.9 Hct 43.0 MCV 82.4 MCH 28.5 MCHC 34.7 RDW Std Deviation 40.2 RDW Coeff of [place] 13.5 Plt Count 173 MPV 12.0 H Immature Gran % (Auto) 0.4 Neut % (Auto) 54.9 Lymph % (Auto) 28.6 [place] % (Auto) 8.1 Eos % (Auto) 6.7 Baso % (Auto) 1.3 Immature Gran # (Auto) 0.03 H Neut # (Auto) 3.78 Lymph # (Auto) 1.97 [place] # (Auto) 0.56 Eos # (Auto) 0.46 Baso # (Auto) 0.09 PT 10.8 INR 1.0 APTT 29.1 PTT Ratio 1.0 Sodium 137 Potassium 3.6 Chloride 104 Carbon Dioxide 26 Anion Gap 8.0 BUN 37 H Creatinine 1.11 Est Cr Clr Drug Dosing 44.1 Est GFR ( Amer) 59.5 Est GFR (Non-Af Amer) 51.3 BUN/Creatinine Ratio 33.1 H Glucose 127 H Estimat Average Glucose Hemoglobin A1c Calcium 9.3 Troponin I < 0.015 Triglycerides Cholesterol LDL Cholesterol, Calc VLDL Cholesterol, Calc HDL Cholesterol Cholesterol/HDL Ratio Lipase 236 06/13/20 06/13/20 06/13/20 00:11 09:15 09:15 WBC 5.57 RBC 5.17 Hgb 14.5 Hct 42.6 MCV 82.4 MCH 28.0 MCHC 34.0 RDW Std Deviation 40.0 RDW Coeff of [place] 13.4 Plt Count 158 MPV 11.7 H Immature Gran % (Auto) Neut % (Auto) Lymph % (Auto) [place] % (Auto) Eos % (Auto) Baso % (Auto) Immature Gran # (Auto) Neut # (Auto) Lymph # (Auto) [place] # (Auto) Eos # (Auto) Baso # (Auto) PT INR APTT PTT Ratio Sodium 141 Potassium 3.8 Chloride 105 Carbon Dioxide 29 Anion Gap 7.0 BUN 29 H Creatinine 1.03 Est Cr Clr Drug Dosing 46.6 Est GFR ( Amer) 65.1 Est GFR (Non-Af Amer) 56.2 BUN/Creatinine Ratio 27.7 H Glucose 96 Estimat Average Glucose Hemoglobin A1c Calcium 9.1 Troponin I < 0.015 Triglycerides 185 H Cholesterol 156 LDL Cholesterol, Calc 82 VLDL Cholesterol, Calc 37 HDL Cholesterol 37 Cholesterol/HDL Ratio 4 Lipase 01/10/20 01/10/20 09:15 09:15 WBC RBC Hgb Hct MCV MCH MCHC RDW Std Deviation RDW Coeff of [place] Plt Count MPV Immature Gran % (Auto) Neut % (Auto) Lymph % (Auto) [place] % (Auto) Eos % (Auto) Baso % (Auto) Immature Gran # (Auto) Neut # (Auto) Lymph # (Auto) [place] # (Auto) Eos # (Auto) Baso # (Auto) PT INR APTT PTT Ratio Sodium Potassium Chloride Carbon Dioxide Anion Gap BUN Creatinine Est Cr Clr Drug Dosing Est GFR ( Amer) Est GFR (Non-Af Amer) BUN/Creatinine Ratio Glucose Estimat Average Glucose 88 Hemoglobin A1c 4.7 Calcium Troponin I < 0.015 Triglycerides Cholesterol LDL Cholesterol, Calc VLDL Cholesterol, Calc HDL Cholesterol Cholesterol/HDL Ratio Lipase Medications Administered Current Inpatient Medications Acetaminophen (Tylenol) 650 mg PO Q4H PRN PRN Reason: Pain or Fever Stop: 02/08/20 20:14 Amlodipine Besylate (Norvasc) 5 mg PO BID [facility] Stop: 02/08/20 20:59 Last Admin: 01/10/20 08:23 Dose: 5 mg Documented by: Aspirin (Ecotrin Ectab) [facility] Stop: 02/09/20 08:59 Last Admin: 01/10/20 08:22 Dose: 81 mg Documented by: Citalopram Hydrobromide (Celexa) 20 mg PO QAM [facility] Stop: 02/09/20 08:59 Last Admin: 01/10/20 08:22 Dose: 20 mg Documented by: Clonazepam (Klonopin) 1 mg PO [facility] Stop: 02/08/20 20:59 Last Admin: 01/09/20 21:18 Dose: 1 mg Documented by: Ferrous Sulfate (Feosol) 325 [facility] [place] Stop: 02/09/20 08:59 Last Admin: 01/10/20 08:22 Dose: 325 mg Documented by: Gemfibrozil (Lopid) 600 mg PO BID [facility] Stop: 02/08/20 20:59 Last Admin: 01/10/20 08:22 Dose: 600 mg Documented by: Heparin Sodium (Porcine) (Heparin Sodium (Porcine)) 5,000 units SQ Q8 [facility] Stop: 02/08/20 21:59 Last Admin: 01/10/20 04:22 Dose: Not Given Documented by: Levothyroxine Sodium (Synthroid) 150 mcg PO MoWeFr@0630 [facility] Stop: 02/11/20 06:29 Levothyroxine Sodium (Synthroid) 175 mcg PO SuTuThSa@0630 [facility] Stop: 02/09/20 06:29 Last Admin: 01/10/20 08:27 Dose: 175 mcg Documented by: Meloxicam (Mobic) 15 mg PO [facility] Stop: 02/08/20 20:59 Last Admin: 01/09/20 21:11 Dose: 15 mg Documented by: Metoprolol Succinate (Toprol Xl) [facility] [place] [facility] Stop: 02/09/20 08:59 Last Admin: 01/10/20 08:58 Dose: Not Given Documented by: Nitroglycerin (Nitrostat) 0.4 mg SL UD PRN PRN Reason: Chest Pain Stop: 02/08/20 20:14 Polyethylene Glycol (Miralax Powder Packet) 17 gm PO DAILY PRN PRN Reason: Constipation Stop: 02/08/20 20:14 Tramadol/Acetaminophen (Ultracet) 1 tab PO QID PRN PRN Reason: Pain Stop: 02/08/20 20:14 Last Admin: 01/10/20 04:35 Dose: 1 tab Documented by: Triamterene/HCTZ (Maxzide 37.5/25mg) 1 tab PO QAM [facility] Stop: 02/09/20 08:59 Last Admin: 01/10/20 08:23 Dose: 1 tab Documented by: (1) Chest pain Chest pain type: unspecified Qualified Code(s): R07.9 - Chest pain, unspecified
[2020-01-10] MEDS ORDERED: DOBUTamine HCL 12.5 MG/ML 20 ML VIAL IV ONE (13:38)
[2020-01-10] MEDS ORDERED: METOPROLOL TARTRATE 1 MG/ML VIAL IV ONE (13:52)
[2020-01-10] MEDS ORDERED: ATROPINE SULFATE 0.1 MG/ML 10ML SYR IV ONE (13:52)
--- NOTE | 2020-01-10 14:29 | Communication Note ---
Date of Service: January 10, 2020 Stress test is positive for ischemia. Patient had a brief syncopal spell upon arising likely due to orthostatic hypotension. We will continue to monitor on telemetry and proceed with cardiac catheterization on 01/12/2020.
--- NOTE | 2020-01-10 14:56 | Communication Note ---
Date of Service: January 10, 2020 Results of stress test reviewed with her daughter, Naya, by phone as well.
[2020-01-10] MEDS: clonazePAM 1 MG TAB PO SCH (21:09)
[2020-01-10] MEDS: MELOXICAM 7.5 MG TAB PO SCH (21:10)
[2020-01-11] MEDS: HEPARIN SOD 5,000 UNIT/0.5 ML VIAL SQ SCH ×3 (04:12→21:56)
[2020-01-11] MEDS: LEVOTHYROXINE SODIUM 175 MCG TABLET PO SCH (05:55)
[2020-01-11] MEDS: TRAMADOL/ACETAMINOPHEN 37.5/325MG TAB PO PRN ×3 (05:56→19:54)
[2020-01-11] MEDS: CITALOPRAM 20 MG TAB PO SCH (08:01)
[2020-01-11] MEDS: ASPIRIN 81 MG ECTAB PO SCH (08:01)
[2020-01-11] MEDS: gemfibroziL 600 MG TAB PO SCH ×2 (08:02→15:45)
[2020-01-11] MEDS: FERROUS SULFATE 325 MG TAB PO SCH (08:02)
[2020-01-11] MEDS: METOPROLOL SUCC 50MG EXT REL TAB PO SCH (08:02)
[2020-01-11] MEDS: TRIAMTERENE/HCTZ 37.5/25MG TAB PO SCH (08:02)
[2020-01-11] MEDS: AMLODIPINE BESYLATE 5 MG TAB PO SCH ×2 (08:02→20:00)
--- NOTE | 2020-01-11 12:06 | Hospitalist Progress Note ---
Date of Service January 11, 2020 Assessment & Plan (1) Chest pain: This is a 69yo F with a PMH of HTN, hypothyroidism, CKD III, high triglycerides and other medical problems listed below who was sent from PCP's office with worsening chest pain x 1 month. -Worsening intermittent CP x 1 month that was relieved today with NTG in PCP's office -History of exercise stress test in 2018 that was indeterminate for inducible ischemia due to failure to achieve 85% of max HR, per records -Remains free of pain this morning and denies any other symptoms -Troponin x3 and EKG remain unremarkable for any ACS -Appreciate cardiology input and recommendation -DS E came back positive for ischemia -She remains free from symptoms -We will have cardiac cath tomorrow for further evaluation of coronary circulation (2) Hypertension: Continue Amlodipine, Maxzide, Toprol Blood pressure is controlled (3) Hypothyroidism: Continue levothyroxine (4) CKD (chronic kidney disease), stage III: Kidney function at baseline (5) Hypertriglyceridemia: Continue gemfibrozil DVT Ppx: SQ heparin Code status: FULL PCP: Elinor Dispo: Observation med tele. Plan to return home once medically stable. Likely discharge home this afternoon following negative stress test Admission and Anticipated Discharge Date Admission Date: January 09, 2020 Subjective The patient was seen and examined in medical telemetry unit She was admitted with chest pain and so far there is no evidence of EKG and/or troponin changes suggestive of any ACS She is free of any pain and her symptoms this morning She will have a stress test this afternoon and likely to go home following that 01/11/2020 The patient was seen and examined in medical telemetry unit She remains free from any chest pain, palpitation or shortness of breath but her DSE came back positive She is waiting for cardiac cath tomorrow morning Review of Systems Review of Systems: All systems reviewed and are unremarkable except as noted below Cardiovascular: no chest pain, no dyspnea and no palpitations Physical Exam 2 Physical Exam: Lying in bed comfortably but anxious Constitutional: well developed and well nourished; no acute distress and not ill appearing Eyes: PERRL, conjunctivae normal, anicteric sclerae ENMT: external ear and nose normal, oropharynx normal Neck: trachea midline, no thyromegaly Respiratory: normal respiratory effort; no respiratory distress Auscultat ion: lungs clear to auscultation bilaterally Cardiovascular: Rate/Rhythm: regular rate and regular rhythm Heart Sounds: no murmur Gastrointestinal (Abdomen): Inspection/Auscultation: abdomen normal to inspection; abdomen not distended Percussion/Palpation: abdomen soft; abdomen nontender Neurologic: moves all extremities; no focal motor deficits Lymphatic: no cervical or axillary lymphadenopathy Results & Data Results & Data ([facility]) Vital Signs (Past 12 Hours) Vital Signs Temp Pulse Pulse Resp BP Pulse Ox 01/11/20 11:40 36.6 C 58 L 16 107/45 L 95 01/11/20 07:30 49 L 01/11/20 07:15 36.5 C 53 L 16 150/73 H 96 01/11/20 03:34 36.7 C 60 16 121/67 95 Medications Administered Current Inpatient Medications Acetaminophen (Tylenol) 650 mg PO Q4H PRN PRN Reason: Pain or Fever Stop: 02/08/20 20:14 Amlodipine Besylate (Norvasc) 5 mg PO BID [facility] Stop: 02/08/20 20:59 Last Admin: 01/11/20 08:02 Dose: 5 mg Documented by: Aspirin (Ecotrin Ectab) 81 mg PO QAM [facility] Stop: 02/09/20 08:59 Last Admin: 01/11/20 08:01 Dose: 81 mg Documented by: Citalopram Hydrobromide (Celexa) 20 mg PO QAM [facility] Stop: 02/09/20 08:59 Last Admin: 01/11/20 08:01 Dose: 20 mg Documented by: Clonazepam (Klonopin) 1 mg PO HS [facility] Stop: 02/08/20 20:59 Last Admin: 01/10/20 21:09 Dose: 1 mg Documented by: Ferrous Sulfate (Feosol) 325 mg PO QAM [facility] Stop: 02/09/20 08:59 Last Admin: 01/11/20 08:02 Dose: 325 mg Documented by: Gemfibrozil (Lopid) 600 mg PO BID [facility] Stop: 02/08/20 20:59 Last Admin: 01/11/20 08:02 Dose: 600 mg Documented by: Heparin Sodium (Porcine) (Heparin Sodium (Porcine)) 5,000 units SQ Q8 [facility] Stop: 02/08/20 21:59 Last Admin: 01/11/20 04:12 Dose: Not Given Documented by: Levothyroxine Sodium (Synthroid) 150 mcg PO MoWeFr@0630 [facility] Stop: 02/11/20 06:29 Levothyroxine Sodium (Synthroid) 175 mcg PO SuTuThSa@0630 [facility] Stop: 02/09/20 06:29 Last Admin: 01/11/20 05:55 Dose: 175 mcg Documented by: Meloxicam (Mobic) 15 mg PO HS [facility] Stop: 02/08/20 20:59 Last Admin: 01/10/20 21:10 Dose: 15 mg Documented by: Metoprolol Succinate (Toprol Xl) [facility] Stop: 02/09/20 08:59 Last Admin: 01/11/20 08:02 Dose: Not Given Documented by: Nitroglycerin (Nitrostat) 0.4 mg SL UD PRN PRN Reason: Chest Pain Stop: 02/08/20 20:14 Polyethylene Glycol (Miralax Powder Packet) 17 gm PO DAILY PRN PRN Reason: Constipation Stop: 02/08/20 20:14 Tramadol/Acetaminophen (Ultracet) 1 tab PO QID PRN PRN Reason: Pain Stop: 02/08/20 20:14 Last Admin: 01/11/20 05:56 Dose: 1 tab Documented by: Triamterene/HCTZ (Maxzide 37.5/25mg) 1 tab [facility] Stop: 02/09/20 08:59 Last Admin: 01/11/20 08:02 Dose: 1 tab Documented by: (1) Chest pain Chest pain type: unspecified Qualified Code(s): R07.9 - Chest pain, unspecified
[2020-01-11] MEDS ORDERED: MoRPHine SULFATE 2 MG/ML CARP IV PRN (12:40)
[2020-01-11] MEDS: NITROGLYCERIN 2% OINTMENT 30GM TUBE EXT SCH ×3 (12:51→23:58)
--- NOTE | 2020-01-11 14:09 | Cardiology Progress Note ---
Date of Service January 11, 2020 Assessment & Plan (1) Chest pain: (2) Hypertension: (3) CKD (chronic kidney disease), stage III: (4) Hypertriglyceridemia: Abnormal exercise stress echocardiogram to suggest ischemia in the [place]. States that she has continued discomfort at this time but she was asleep when I entered the room. We will start nitroglycerin patch for further pain control. I also place an order for morphine PRN. Unable to further increase the dose of metoprolol given relative bradycardia For cardiac catheterization in the a.m. If we are unable to control her chest discomfort medically may require urgent cardiac catheterization. N.p.o. after midnight. Subjective Patient seen and examined, chart reviewed. I awoke her from sleep but she states that she is still continue to have 6 out of 10 chest discomfort. She has not reported this to nursing nor has she received any further sublingual nitroglycerin. States that the discomfort is similar to presenting pain but not nearly as intense. Otherwise states that she feels well. Telemetry reviewed: Normal sinus rhythm without arrhythmia or significant ectopy. Review of Systems Review of Systems: All systems reviewed & are unremarkable except as noted in HPI & below Physical Exam Physical Exam: General: Awake, alert and oriented x 3. No acute distress. HEENT: Normocephalic, atraumatic. Pupils equal, round and reactive to light and accommodation. Extraocular muscles are intact. Anicteric sclera. Moist mucous membranes. Neck: No JVD. No bruit. Cardiovascular: Regular. Positive S-4. Normal S-1 and S-2. No S-3. No murmurs or rubs. Pulmonary: Clear to auscultation B/L. No rales, rhonchi or wheezing Abdomen: Bowel sounds x 4, soft. No rebound, guarding or tenderness. No organomegaly. Extremities: No clubbing, cyanosis or edema. +2 pedal pulses bilaterally. Skin: Warm and dry. Results & Data Vital Signs (Past 12 Hours) Vital Signs Temp Pulse Pulse Resp BP Pulse Ox 01/11/20 12:50 116/66 01/11/20 11:40 36.6 C 58 L 16 107/45 L 95 01/11/20 07:30 49 L 01/11/20 07:15 36.5 C 53 L 16 150/73 H 96 01/11/20 03:34 36.7 C 60 16 121/67 95 (1) Chest pain Chest pain type: unspecified Qualified Code(s): R07.9 - Chest pain, unspecified
[2020-01-11] MEDS: clonazePAM 1 MG TAB PO SCH (20:00)
[2020-01-11] MEDS: MELOXICAM 7.5 MG TAB PO SCH (20:00)
[2020-01-12] MEDS: HEPARIN SOD 5,000 UNIT/0.5 ML VIAL SQ SCH ×3 (05:01→20:51)
[2020-01-12] MEDS: NITROGLYCERIN 2% OINTMENT 30GM TUBE EXT SCH ×2 (05:06→13:55)
[2020-01-12] MEDS ORDERED: LEVOTHYROXINE SODIUM 150 MCG TABLET PO SCH (06:30)
[2020-01-12 06:38] LABS: Hemoglobin 13.7 g/dL (12.0-16.0); Mean Corpuscular Hemoglobin 28.6 pg (25-34); Mean Corpuscular Hgb Conc 35.1 g/dL (32-36); Mean Corpuscular Volume 81.4 fL (80-100); Mean Platelet Volume 11.8 fL (7.4-10.4); Platelet Count 148 K/uL (130-400); RDW Coefficient of Variation 13.2 % (11.5-14.5); RDW Standard Deviation 39.3 fL (36.4-46.3); Red Blood Count 4.79 M/uL (4.2-5.4)
[2020-01-12 06:48] LABS: Partial Thromboplastin Ratio 1.1; Partial Thromboplastin Time 29.4 Seconds (21.0-31.0)
[2020-01-12 07:19] LABS: BUN Creatinine Ratio 28.3 (10-20); Calcium 9.4 mg/dl (8.5-10.1); Creatinine Clr Calc Pharmacy 43.4 ml/min; Est GFR (African American) 59.5; Est GFR (Non-African American) 51.3; Magnesium 2.2 mg/dl (1.8-2.4); Potassium 3.3 mmol/L (3.5-5.1)
[2020-01-12] MEDS: FERROUS SULFATE 325 MG TAB PO SCH (08:00)
[2020-01-12] MEDS: TRIAMTERENE/HCTZ 37.5/25MG TAB PO SCH (08:00)
[2020-01-12] MEDS: gemfibroziL 600 MG TAB PO SCH (08:00)
[2020-01-12] MEDS: CITALOPRAM 20 MG TAB PO SCH (08:00)
[2020-01-12] MEDS: AMLODIPINE BESYLATE 5 MG TAB PO SCH ×2 (08:00→20:50)
[2020-01-12] MEDS: METOPROLOL SUCC 50MG EXT REL TAB PO SCH (08:00)
[2020-01-12] MEDS: ASPIRIN 81 MG ECTAB PO SCH (08:01)
[2020-01-12] MEDS ORDERED: fentaNYL citrate 100 MCG/2 ML VIAL ONE (11:48)
[2020-01-12] MEDS ORDERED: HEPARIN (PORCINE) 1000 UNIT/ML 10 ML (CATH LAB USE ONLY) ONE (11:48)
[2020-01-12] MEDS ORDERED: MIDAZOLAM HCL 1 MG/ML 2ML VIAL ONE ×2 (11:48→12:33)
[2020-01-12] MEDS ORDERED: NiCARDipine HCL INJ 2.5 MG/ML 10 ML AMP ONE (11:48)
[2020-01-12] MEDS ORDERED: NITROGLYCERIN/D5W 100MCG/ML 20ML SYR ONE (11:49)
--- NOTE | 2020-01-12 12:06 | Cardiology Consultation ---
Date of Consultation January 12, 2020 Assessment & Plan (1) Chest pain: Patient here with intermittent chest pain concerning for accelerating angina. Stress test with high risk findings and suggestive of LAD distribution ischemia. Plan to proceed with cardiac catheterization via right radial artery. Discussed procedure with patient including risk, benefits, alternatives and she is willing to proceed. Further recommendations pending findings. History of Present Illness Attending Physician: Scooter Aparicio MD History of Present Illness Ms. Cline is a very pleasant 69-year-old woman with a history of hypertension, hypothyroidism, stage III chronic kidney disease, dyslipidemia who was admitted with intermittent chest pain over the last several weeks. Serial ECGs, troponins negative for ischemia on admission. Underwent a dobutamine stress echocardiogram with LAD distribution ischemia. Has continued to have intermittent chest pain while admitted despite nitro patch. Other past medical issues include remote brain surgery in 1992, prior hysterectomy, reported easy bleeding on long-term iron, hypothyroidism. Allergies Allergy/AdvReac Type Severity Reaction Status Date / Time procaine Allergy Unknown UNKN Verified 01/09/20 19:13 aspirin AdvReac Mild BLEEDING Verified 01/09/20 19:58 ibuprofen AdvReac Unknown BLEEDING Unverified 01/09/20 19:13 Home Medications Home Medications Medication Instructions Recorded Confirmed Type amlodipine [Norvasc] 5 mg PO BID 01/09/20 01/09/20 History aspirin 81 mg PO QAM 01/09/20 01/09/20 History citalopram [Celexa] 20 mg PO QAM 01/09/20 01/09/20 History clonazepam [Klonopin] 1 mg PO HS 01/09/20 01/09/20 History ferrous sulfate [iron] 325 mg PO QAM 01/09/20 01/09/20 History gemfibrozil [Lopid] 600 mg PO BID 01/09/20 01/09/20 History levothyroxine [Synthroid] 150 mcg PO MOWEFR 01/09/20 01/09/20 History levothyroxine [Synthroid] 175 mcg PO SUTUTHSA 01/09/20 01/09/20 History magnesium citrate 100 mg PO BID 01/09/20 01/09/20 History meloxicam [Mobic] 15 mg PO HS 01/09/20 01/09/20 History metoprolol succinate [Toprol XL] 50 mg PO QAM 01/09/20 01/09/20 History tramadol-acetaminophen [Ultracet] 1 tab PO QID PRN 01/09/20 01/09/20 History triamterene-hydrochlorothiazid 1 tab PO QAM 01/09/20 01/09/20 History [Maxzide] Patient History Medical History CKD (chronic kidney disease), stage III Hypertension (Chronic) Hypertriglyceridemia Hypothyroidism (Chronic) Thrombocytopenia Surgical History History of meningioma of the brain History of partial hysterectomy Hx of appendectomy S/P cholecystectomy Family History Other Heart disease Stroke Social History Preferred Language: Kyrgyz Communication Ability: Effective Beliefs That Will Affect Care: Sikh Sikh Beliefs: Gnosticist Current Living Situation: Family Other Information That Helps Us Care for You: No Feels Safe at Home: Yes Safety Concerns: Feels Safe At This Time Smoking Status: Former smoker Hx Alcohol Use: No Hx Substance Use: No Review of Systems Review of Systems: All systems reviewed & are unremarkable except as noted in HPI & below Physical Exam Physical Exam: General: Comfortable, no acute distress HEENT: Sclerae anicteric, mucous membranes moist Lungs: Clear to auscultation bilaterally, no rhonchi or wheezes Cardiac: Regular rate and rhythm, no murmurs. No JVD. Abdomen: Soft, nontender, nondistended, positive bowel sounds. Extremities: Warm, well perfused, no edema. 2+ radial pulses Skin: No rashes or lesions. Neuro: Nonfocal Psych: Alert orient x3, normal affect and mood Results & Data ([facility]) Vital Signs (Past 12 Hours) Vital Signs Temp Pulse Pulse Resp BP BP Pulse Ox 01/12/20 11:46 154/70 H 01/12/20 11:19 98.4 F 58 L 18 134/64 95 01/12/20 07:33 97.7 F 63 18 160/83 H 98 01/12/20 07:03 54 L 01/12/20 05:05 53 L 135/69 01/12/20 02:56 97.9 F 69 16 122/62 95 PG Care Time/CCT Total # of Minutes Spent Total Time Spent with Patient: Total time spent is greater than 50% in coordination of care (as documented) at patient's floor/unit and/or counseling patient: Coding Level of Care Code 06492 Inpt Consult Level 3 Diagnoses Chest pain R07.9 Chest pain type: unspecified (1) Chest pain Chest pain type: unspecified Qualified Code(s): R07.9 - Chest pain, unspecified
--- NOTE | 2020-01-12 12:07 | Pre Anesthesia Assessment ---
Date of Service January 12, 2020 Pre Sedation Assessment Vital Signs Temp Pulse Pulse Resp BP BP Pulse Ox 01/12/20 11:46 154/70 H 01/12/20 11:19 98.4 F 58 L 18 134/64 95 01/12/20 07:33 97.7 F 63 18 160/83 H 98 01/12/20 07:03 54 L 01/12/20 05:05 53 L 135/69 01/12/20 02:56 97.9 F 69 16 122/62 95 01/11/20 23:18 61 113/48 L 01/11/20 23:01 97.9 F 62 18 107/56 L 95 01/11/20 23:00 61 01/11/20 19:10 97.9 F 77 18 129/67 94 01/11/20 18:52 125/66 01/11/20 16:00 55 L 01/11/20 15:34 98.1 F 73 18 102/59 L 96 01/11/20 12:50 116/66 Cardiovascular RRR, no murmur, no edema Respiratory normal respiratory effort, lungs clear to auscultation Pre-Sedation Airway Assessment Smoking Status: Former smoker Hx Sleep Apnea: No Hx Difficult Intubation: No Short, Thick Neck: No Thyromental Distance: < 3.5 Finger Breadths Oral Cavity: + WNL Mallampati Class: II ASA: ASA3 NPO Status Date of Last Intake of Fluids: 01/12/20 Time of Last Intake of Fluids: 08:00 Date of Last Intake of Solid Food: 01/11/20 Time of Last Intake of Solid Foods: 17:30 Procedure Planning Contraindications for Sedation: none Current Medications Reviewed: Yes Notes The planned sedation has been discussed with the patient. Informed Consent was obtained. I have identified the patient, determined the appropriateness of sedation and have assessed the patient immediately prior to the procedure. All medicine(s) and interventions are by my order.
--- NOTE | 2020-01-12 12:25 | Cardiology Progress Note ---
Date of Service January 12, 2020 Assessment & Plan (1) Chest pain: (2) Hypertension: (3) CKD (chronic kidney disease), stage III: (4) Hypertriglyceridemia: Abnormal exercise stress echocardiogram to suggest ischemia in the LAD territory. Chest discomfort has resolved with initiation of nitro patch. For cardiac catheterization today, further recommendations to follow. Subjective Patient seen and examined, chart reviewed. States that her chest pain has resolved since initiation of nitroglycerin patch. And has not had any further episodes. Denies shortness of breath, palpitations, lightheadedness, dizziness or syncope. Has been n.p.o. after midnight for cardiac catheterization today. Telemetry reviewed: Normal sinus rhythm without arrhythmia or significant ectopy. Review of Systems Review of Systems: All systems reviewed & are unremarkable except as noted in HPI & below Physical Exam Physical Exam: General: Awake, alert and oriented x 3. No acute distress. HEENT: Normocephalic, atraumatic. Pupils equal, round and reactive to light and accommodation. Extraocular muscles are intact. Anicteric sclera. Moist mucous membranes. Neck: No JVD. No bruit. Cardiovascular: Regular. Positive S-4. Normal S-1 and S-2. No S-3. No murmurs or rubs. Pulmonary: Clear to auscultation B/L. No rales, rhonchi or wheezing Abdomen: Bowel sounds x 4, soft. No rebound, guarding or tenderness. No organomegaly. Extremities: No clubbing, cyanosis or edema. +2 pedal pulses bilaterally. Skin: Warm and dry. Results & Data Vital Signs (Past 12 Hours) Vital Signs Temp Pulse Pulse Resp BP BP Pulse Ox 01/12/20 11:46 154/70 H 01/12/20 11:19 36.9 C 58 L 18 134/64 95 01/12/20 07:33 36.5 C 63 18 160/83 H 98 01/12/20 07:03 54 L 01/12/20 05:05 53 L 135/69 01/12/20 02:56 36.6 C 69 16 122/62 95 (1) Chest pain Chest pain type: unspecified Qualified Code(s): R07.9 - Chest pain, unspecified
[2020-01-12] MEDS ORDERED: ADENOSINE IV SOLN 3 MG/ML 20 ML VIAL IV ONE (12:29)
[2020-01-12] MEDS ORDERED: CLOPIDOGREL BISULFATE 300 MG TAB ONE (13:04)
--- NOTE | 2020-01-12 13:07 | Post Anesthesia Assessment ---
Date of Service January 12, 2020 Post Sedation Assessment Vital Signs Temp Pulse Pulse Resp BP BP Pulse Ox 01/12/20 11:46 154/70 H 01/12/20 11:19 98.4 F 58 L 18 134/64 95 01/12/20 07:33 97.7 F 63 18 160/83 H 98 01/12/20 07:03 54 L 01/12/20 05:05 53 L 135/69 01/12/20 02:56 97.9 F 69 16 122/62 95 01/11/20 23:18 61 113/48 L 01/11/20 23:01 97.9 F 62 18 107/56 L 95 01/11/20 23:00 61 01/11/20 19:10 97.9 F 77 18 129/67 94 01/11/20 18:52 125/66 01/11/20 16:00 55 L 01/11/20 15:34 98.1 F 73 18 102/59 L 96 Recovery Score Activity: Moves 4 extremities Respiration: Deep Breath/Cough Circulation: +/-20% PreAnes Value Consciousness: Fully Awake Oxygen Saturation: O2 needed for >90% Discharge Sedation Level of Care: Fast Track Phase II Post Sedation Plan On clinical assessment, the patient appears to have tolerated the sedation without complications. Patient is recovering as anticipated. Patient will continue to be monitored by nursing and may be discharged when sedation discharge criteria are met per below protocol. Upon Completions of procedure up to 15 minutes continue every 5 minute vital signs and the P.A.R. score; then discharge to a Phase I or Fast Track to Phase II per the following guidelines: * Discharge Patient to appropriate Phase II area if PAR is 8 or greater or return to pre- procedure baseline. The post - procedure orders will be as directed. * If PAR score is less than 8 or not return to pre-procedure baseline then patient will follow Phase I monitoring till PAR is reached for Phase II. The Phase I may be done in procedure room or may call to secure a Phase I area. * If naloxone or flumazenil are used for reversal, hold in Phase I for continued monitoring from when last reversal dose was given for a minimum of 60 minutes or longer pending the nurse and/or physician discretion of patient condition before discharge to Phase II. Please call the Sedation Physician to re-evaluate and complete post-note for discharge to Phase II area. Do NOT discharge from procedure sedation or Phase 1 until post- sedation evaluation note is complete by procedure /sedation MD Sedation Discharge Instructions to be given to the patient at discharge to home.
[2020-01-12] MEDS ORDERED: SODIUM CHLORIDE 0.9% 1000ML 1,000 ML IV SCH (13:15)
[2020-01-12] MEDS ORDERED: ONDANSETRON INJ 2 MG/ML 2 ML VIAL ONE (13:23)
--- NOTE | 2020-01-12 13:24 | Cardiac Catheterization ---
[facility] Data: Change Number Operator Cardiac Status Clinical evaluation leading to the procedure CAD Presenation: Positive Stress Test and Unstable angina Anginal Classification: CCS III Heart Failure: No Cardiogenic Shock within 24 Hours: No Cardiac Arrest within 24 Hours: No Imaging Studies Past 6 Months: Yes Stress Studies Past 6 Months: Yes Stress Echocardiogram: Yes - Positive and Risk/Extent of Ischemia (High) Diagnostic Physicians Name: Yobany Grady MD Status: Elective Closure Device Percutaneous Entry Location: Radial Closure Device: Radial Band Recommendations: PCI without planned CABG PCI Indication: + Stress Test and Unstable Angina Lesion Segment Name: Mid LAD Culprit Artery: Yes Stenosis Prior to Rx (%): 70 Chronic Total Occlusion: No IVUS: No FFR: Yes Ratio: greater than 0.75% Pre-Procedure MONSTER Flow: 3 Previously Treated Lesion: No Lesion Complexity: Non-High/Non-C Lesion Length (mm): 10 Thrombus Present: No Bifurcation Lesion: Yes Guidewire Across Lesion: Stenosis Post-Procedure (%): 0 Post-Procedure MONSTER Flow: 3 Devices(s) Deployed: Yes Yes Intraprocedure Events Significant Disection: No Perforation: No Cardiac Cath Procedure Full Procedure Date January 12, 2020 Pre-Procedure Diagnosis Pre-Procedure Diagnosis: Acute Coronary Syndrome AUC Score AUC Score: 7 Post-Procedure Diagnosis Post-Procedure Diagnosis: Severe CAD, Successful PCI and Normal Intracardiac Pre ssures Procedure(s) Performed Procedure(s) Performed: Coronary Angiography, Left Heart Cath, Drug Eluting Stent and Fractional Flow [place] [employer] Specialist Yobany Grady MD Lathe Set Up Person(s) Jay Estimated Blood Loss Estimated Blood Loss: 15 Medication(s) Medication(s): Adenosine, Clopidogrel, Fentanyl, Heparin, Lidocaine 1%, Nicardipine, Nitroglycerin and Versed Summary of Findings Indication: Unstable angina, high risk positive stress test with LAD distribution ischemia Access: 6 Fr slender right radial artery Catheters: [place], EBU 3.5 guide Findings: LM -medium caliber, no significant disease LAD -medium caliber, mild proximal disease, 70% focal eccentric mid stenosis at takeoff of medium caliber first diagonal. Distal vessel tapers to apex. First diagonal without significant disease. Ramus - medium caliber, 40% mid segment disease in inferior branch Circumflex -large caliber, proximal to mid luminal irregularities. 70% focal stenosis and small distal vessel before left PLB. RCA -dominant, medium caliber, 40% mid segment disease, distal luminal irregularities and mild mid PDA disease. LVEDP -2 -- PCI -- Antithrombotic therapy: Heparin, clopidogrel Procedure: Left main cannulated with EBU 3.5 guide Account Technician 50 wire passed across lesion into distal vessel ACIST FFR catheter placed across mid LAD stenosis Pd/Pa 0.93 FFR 0.79 ACIST Catheter removed Whisper wire placed into first diagonal Mid LAD lesion predilated with 2.5 compliant balloon Dilated lesion stented with 2.75 x 15 mm Noel drug-eluting stent Stent post-dilated with 2.75 noncompliant balloon IC vasodilators administered for spasm Post procedure MONSTER 3 flow, stent well expanded with minimal residual stenosis and no apparent cardiac complications. Arterial Closure: TR band Summary: 1. Severe 2 vessel coronary artery disease -70% eccentric mid LAD at takeoff of first diagonal (FFR 0.79). 70% distal circumflex prior to small left PLB (vessel <2mm). 2. Normal intracardiac filling pressure 3. Successful PCI of mid LAD with single drug-eluting stent (2.75 x 15 mm [place]). Recommendations: To PCU for continued monitoring Loaded with clopidogrel 600 mg in Change Number Operator Continue dual-antiplatelet therapy for at least 1 year Continue statin, and ASCVD risk factor modification Consult cardiac Rehab Small caliber distal circumflex too small for intervention will manage medically. Hemodynamics Rest Ao:: 141/56/92 Final Ao: 117/45/75 LV: 137/2 Recommendations Recommendations: PCI without planned CABG Specimens Specimens: None Radiation Exposure (mGy) 1639 Contrast (mls) 95 Fluids (cc crystalloids) Fluids (cc crystalloids): 99 Drains Drains: None Anesthesia Moderate Procedural Complication(s) None Disposition PCU I attest to the content of the Intraoperative Record and any orders documented therein. Any exceptions are noted below. [place] Card Cath Procedure Codes Cardiac Catheterization Procedure 1: Cardiovascular Cath Procedures: 53745 Coronaries and LHC (+/-LV) Procedure 2: Cardiovascular Cath Procedures: 76124 (Doppler) Pressure Wire Moderate Sedation Procedure 1: Sedation/Anesthesia: 37472 Mod Sedation by the same physician;Init15 Min Child Age 5 & Up Procedure 2: Sedation/Anesthesia: 68268 Mod Sedation by the same physician; Ea [id number] Minutes Stenting Procedure 1: Cardiovascular Stent Procedures: 65276 Perc transcatheter placement of intracoronary stent(s), with ang PG Care Time/CCT Total # of Minutes Spent Total Time Spent with Patient: Total time spent is greater than 50% in coordination of care (as documented) at patient's floor/unit and/or counseling patient:
--- NOTE | 2020-01-12 15:30 | Electrocardiogram Report ---
Test Reason : Blood Pressure : / mmHG Vent. Rate : 056 BPM Atrial Rate : 056 BPM P-R Int : 174 ms QRS Dur : 098 ms QT Int : 446 ms P-R-T Axes : 017 000 010 degrees QTc Int : 430 ms Sinus bradycardia Minimal voltage criteria for LVH, may be normal variant Borderline ECG When compared with ECG of 10-JAN-2020 06:39, Nonspecific T wave abnormality now evident in Anterior leads Confirmed by Yobany Saucedo ([id number]) on 01/12/2020 3:30:03 PM Referred By: REFERRED SELF Confirmed By:Morgan Suacedo
[2020-01-12] MEDS: TRAMADOL/ACETAMINOPHEN 37.5/325MG TAB PO PRN (17:07)
[2020-01-12] MEDS: clonazePAM 1 MG TAB PO SCH (20:50)
[2020-01-12] MEDS: MELOXICAM 7.5 MG TAB PO SCH (20:50)
[2020-01-13] MEDS: TRAMADOL/ACETAMINOPHEN 37.5/325MG TAB PO PRN (00:25)
[2020-01-13] MEDS: HEPARIN SOD 5,000 UNIT/0.5 ML VIAL SQ SCH (04:29)
[2020-01-13] MEDS: LEVOTHYROXINE SODIUM 175 MCG TABLET PO SCH (04:29)
[2020-01-13] MEDS: TRIAMTERENE/HCTZ 37.5/25MG TAB PO SCH (08:28)
[2020-01-13] MEDS: METOPROLOL SUCC 50MG EXT REL TAB PO SCH (08:28)
[2020-01-13] MEDS: CITALOPRAM 20 MG TAB PO SCH (08:29)
[2020-01-13] MEDS: ASPIRIN 81 MG ECTAB PO SCH (08:29)
[2020-01-13] MEDS: AMLODIPINE BESYLATE 5 MG TAB PO SCH (08:30)
[2020-01-13] MEDS: FERROUS SULFATE 325 MG TAB PO SCH (08:30)
[2020-01-13 08:56] LABS: BUN Creatinine Ratio 28.8 (10-20); Calcium 9.2 mg/dl (8.5-10.1); Creatinine Clr Calc Pharmacy 42.4 ml/min; Est GFR (African American) 57.6; Est GFR (Non-African American) 49.7; Potassium 3.6 mmol/L (3.5-5.1)
[2020-01-13] MEDS ORDERED: CLOPIDOGREL BISULFATE 75 MG TAB PO SCH (09:00)
[2020-01-13] MEDS ORDERED: ATORVASTATIN 20 MG TAB PO SCH (09:00)
--- NOTE | 2020-01-13 11:13 | Hospitalist Progress Note ---
Date of Service January 13, 2020 Late entry for 01/12/2020 Assessment & Plan (1) Chest pain: This is a 69yo F with a PMH of HTN, hypothyroidism, CKD III, high triglycerides and other medical problems listed below who was sent from PCP's office with worsening chest pain x 1 month. -Worsening intermittent CP x 1 month that was relieved today with NTG in PCP's office -History of exercise stress test in 2018 that was indeterminate for inducible ischemia due to failure to achieve 85% of max HR, per records -Remains free of pain this morning and denies any other symptoms -Troponin x3 and EKG remain unremarkable for any ACS -Appreciate cardiology input and recommendation -DS E came back positive for ischemia -She remains free from symptoms -We will go for cardiac cath this morning (2) Hypertension: Continue Amlodipine, Maxzide, Toprol Blood pressure is controlled (3) Hypothyroidism: Continue levothyroxine (4) CKD (chronic kidney disease), stage III: Kidney function at baseline (5) Hypertriglyceridemia: Continue gemfibrozil DVT Ppx: SQ heparin Code status: FULL PCP: Elinor Dispo: Observation med tele. Plan to return home once medically stable. Likely discharge home this afternoon following negative stress test Admission and Anticipated Discharge Date Admission Date: January 12, 2020 Subjective The patient was seen and examined in medical telemetry unit She was admitted with chest pain and so far there is no evidence of EKG and/or troponin changes suggestive of any ACS She is free of any pain and her symptoms this morning She will have a stress test this afternoon and likely to go home following that 01/11/2020 The patient was seen and examined in medical telemetry unit She remains free from any chest pain, palpitation or shortness of breath but her DSE came back positive She is waiting for cardiac cath tomorrow morning 01/12/2020 The patient was seen and examined in telemetry unit She will go for cardiac cath this morning Review of Systems Review of Systems: All systems reviewed and are unremarkable except as noted below Physical Exam Physical Exam: Lying in bed comfortably Constitutional: well developed and well nourished; no acute distress and not ill appearing Eyes: PERRL, conjunctivae normal, anicteric sclerae ENMT: external ear and nose normal, oropharynx normal Neck: trachea midline, no thyromegaly Respiratory: normal respiratory effort; no respiratory distress Auscultation: lungs clear to auscultation bilaterally Cardiovascular: Rate/Rhythm: regular rate and regular rhythm Heart Sounds: no murmur Gastrointestinal (Abdomen): Inspection/Auscultation: abdomen normal to inspection; abdomen not distended Percussion/Palpation: abdomen soft; abdomen nontender Neurologic: moves all extremities; no focal motor deficits Lymphatic: no cervical or axillary lymphadenopathy Results & Data Results & Data ([facility]) Vital Signs (Past 12 Hours) Vital Signs Temp Pulse Pulse Resp BP Pulse Ox 01/13/20 07:00 36.8 C 56 L 18 108/62 97 01/13/20 04:36 36.5 C 67 20 151/72 H 95 01/13/20 00:30 36.7 C 72 20 160/78 H 96 01/13/20 00:00 62 Laboratory Results BMP 01/13/20 04:25 Sodium 139 Potassium 3.6 Chloride 105 Carbon Dioxide 27 BUN 33 H Creatinine 1.14 Glucose 110 H Calcium 9.2 Medications Administered Current Inpatient Medications Acetaminophen (Tylenol) 650 mg PO Q4H PRN PRN Reason: Pain or Fever Stop: 02/08/20 20:14 Amlodipine Besylate (Norvasc) 5 mg PO BID [facility] Stop: 02/08/20 20:59 Last Admin: 01/13/20 08:30 Dose: 5 mg Documented by: Aspirin (Ecotrin Ectab) 81 mg PO [facility] Stop: 02/09/20 08:59 Last Admin: 01/13/20 08:29 Dose: 81 mg Documented by: Atorvastatin Calcium (Lipitor) 20 mg PO [facility] Stop: 02/12/20 08:59 Last Admin: 01/13/20 08:29 Dose: 20 mg Documented by: Citalopram Hydrobromide (Celexa) 20 mg PO [facility] Stop: 02/09/20 08:59 Last Admin: 01/13/20 08:29 Dose: 20 mg Documented by: Clonazepam (Klonopin) 1 mg PO [facility] Stop: 02/08/20 20:59 Last Admin: 01/12/20 20:50 Dose: 1 mg Documented by: Clopidogrel Bisulfate (Plavix) 75 mg PO [facility] Stop: 02/12/20 08:59 Last Admin: 01/13/20 08:29 Dose: 75 mg Documented by: Ferrous Sulfate (Feosol) 325 mg PO [facility] Stop: 02/09/20 08:59 Last Admin: 01/13/20 08:30 Dose: 325 mg Documented by: Heparin Sodium (Porcine) (Heparin Sodium (Porcine)) 5,000 units SQ Q8 [facility] Stop: 02/08/20 21:59 Last Admin: 01/13/20 04:29 Dose: Not Given Documented by: Levothyroxine Sodium (Synthroid) 150 mcg PO [email or web address] [facility] Stop: 02/11/20 06:29 Last Admin: 01/12/20 05:08 Dose: 150 mcg Documented by: Levothyroxine Sodium (Synthroid) 175 mcg PO [email or web address] [facility] Stop: 02/09/20 06:29 Last Admin: 01/13/20 04:29 Dose: 175 mcg Documented by: Meloxicam (Mobic) 15 mg PO [facility] Stop: 02/08/20 20:59 Last Admin: 01/12/20 20:50 Dose: 15 mg Documented by: Metoprolol Succinate (Toprol Xl) 50 mg PO [facility] Stop: 02/09/20 08:59 Last Admin: 01/13/20 08:28 Dose: 50 mg Documented by: Morphine Sulfate (Morphine Sulfate) 1 mg IV Q2HWA PRN PRN Reason: Pain Stop: 01/25/20 12:39 Nitroglycerin (Nitrostat) 0.4 mg SL UD PRN PRN Reason: Chest Pain Stop: 02/08/20 20:14 Polyethylene Glycol (Miralax Powder Packet) 17 gm PO DAILY PRN PRN Reason: Constipation Stop: 02/08/20 20:14 Tramadol/Acetaminophen (Ultracet) 1 tab PO QID PRN PRN Reason: Pain Stop: 02/08/20 20:14 Last Admin: 01/13/20 00:25 Dose: 1 tab Documented by: Triamterene/HCTZ (Maxzide 37.5/25mg) 1 tab PO [facility] Stop: 02/09/20 08:59 Last Admin: 01/13/20 08:28 Dose: 1 tab Documented by: (1) Chest pain Chest pain type: unspecified Qualified Code(s): R07.9 - Chest pain, unspecified
--- NOTE | 2020-01-13 11:19 | Hospitalist Progress Note ---
Date of Service January 13, 2020 Assessment & Plan (1) Chest pain: This is a 69yo F with a PMH of HTN, hypothyroidism, CKD III, high triglycerides and other medical problems listed below who was sent from PCP's office with worsening chest pain x 1 month. -Worsening intermittent CP x 1 month that was relieved today with NTG in PCP's office -History of exercise stress test in 2018 that was indeterminate for inducible ischemia due to failure to achieve 85% of max HR, per records -Remains free of pain this morning and denies any other symptoms -Troponin x3 and EKG remain unremarkable for any ACS -Appreciate cardiology input and recommendation -DS E came back positive for ischemia -She remains free from symptoms -We will go for cardiac cath this morning 01/12/2020 Status post cardiac cath on 01/12/2020 Severe LAD lesion Mid LAD lesion predilated with 2.5 compliant balloon Dilated lesion stented with 2.75 x 15 mm [place] drug-eluting stent Appreciate cardiology input and recommendation (2) Hypertension: Continue Amlodipine, Maxzide, Toprol Blood pressure is controlled (3) Hypothyroidism: Continue levothyroxine (4) CKD (chronic kidney disease), stage III: Kidney function at baseline (5) Hypertriglyceridemia: Continue gemfibrozil DVT Ppx: SQ heparin Code status: FULL PCP: Elinor Dispo: Observation med tele. Plan to return home once medically stable. Discharge home this morning Admission and Anticipated Discharge Date Admission Date: January 12, 2020 Subjective The patient was seen and examined in medical telemetry unit She was admitted with chest pain and so far there is no evidence of EKG and/or troponin changes suggestive of any ACS She is free of any pain and her symptoms this morning She will have a stress test this afternoon and likely to go home following that 01/11/2020 The patient was seen and examined in medical telemetry unit She remains free from any chest pain, palpitation or shortness of breath but her DSE came back positive She is waiting for cardiac cath tomorrow morning 01/12/2020 The patient was seen and examined in telemetry unit She will go for cardiac cath this morning 01/13/2020 The patient was seen and examined in ICU He denies any symptoms whatsoever Did not have any arrhythmias on monitor He has been ambulating in the room without any Will be discharged this afternoon Review of Systems Review of Systems: All systems reviewed and are unremarkable except as noted below Cardiovascular: no chest pain, no dyspnea and no palpitations Physical Exam Physical Exam: Lying in bed comfortably Constitutional: well developed and well nourished; no acute distress and not ill appearing Eyes: PERRL, conjunctivae normal, anicteric sclerae ENMT: external ear and nose normal, oropharynx normal Neck: trachea midline, no thyromegaly Respiratory: normal respiratory effort; no respiratory distress Auscultation: lungs clear to auscultation bilaterally Cardiovascular: Rate/Rhythm: regular rate and regular rhythm Heart Sounds: no murmur Extremities: no edema Gastrointestinal (Abdomen): Inspection/Auscultation: abdomen normal to inspection; abdomen not distended Percussion/Palpation: abdomen soft; abdomen nontender Musculoskeletal: No acute arthritis involving any joints Neurologic: moves all extremities; no focal motor deficits Alert, awake and oriented x3 Lymphatic: no cervical or axillary lymphadenopathy Results & Data Results & Data ([facility]) Vital Signs (Past 12 Hours) Vital Signs Temp Pulse Pulse Resp BP Pulse Ox 01/13/20 07:00 36.8 C 56 L 18 108/62 97 01/13/20 04:36 36.5 C 67 20 151/72 H 95 01/13/20 00:30 36.7 C 72 20 160/78 H 96 01/13/20 00:[address] [facility] 01/13/20 04:25 Sodium 139 Potassium 3.6 Chloride 105 Carbon Dioxide 27 BUN 33 H Creatinine 1.14 Glucose 110 H Calcium 9.2 Medications Administered Current Inpatient Medications Acetaminophen (Tylenol) 650 mg PO Q4H PRN PRN Reason: Pain or Fever Stop: 02/08/20 20:14 Amlodipine Besylate (Norvasc) 5 mg PO BID COUNT INCLUDES THE [facility] Stop: 02/08/20 20:59 Last Admin: 01/13/20 08:30 Dose: 5 mg Documented by: Aspirin ([facility]rin Ectab) [facility] Stop: 02/09/20 08:59 Last Admin: 01/13/20 08:29 Dose: 81 mg Documented by: Atorvastatin Calcium (Lipitor) 20 mg PO QAM COUNT INCLUDES THE [facility] Stop: 02/12/20 08:59 Last Admin: 01/13/20 08:29 Dose: 20 mg Documented by: Citalopram Hydrobromide (Celexa) 20 mg PO [facility] Stop: 02/09/20 08:59 Last Admin: 01/13/20 08:29 Dose: 20 mg Documented by: Clonazepam (Klonopin) 1 mg PO [facility] Stop: 02/08/20 20:59 Last Admin: 01/12/20 20:50 Dose: 1 mg Documented by: Clopidogrel Bisulfate (Plavix) 75 mg PO [facility] Stop: 02/12/20 08:59 Last Admin: 01/13/20 08:29 Dose: 75 mg Documented by: Ferrous Sulfate (Feosol) 325 mg PO [facility] Stop: 02/09/20 08:59 Last Admin: 01/13/20 08:30 Dose: 325 mg Documented by: Heparin Sodium (Porcine) (Heparin Sodium (Porcine)) 5,000 units SQ Q8 COUNT INCLUDES THE [facility] Stop: 02/08/20 21:59 Last Admin: 01/13/20 04:29 Dose: Not Given Documented by: Levothyroxine Sodium (Synthroid) 150 mcg PO MoWeFr@0630 COUNT INCLUDES THE [facility] Stop: 02/11/20 06:29 Last Admin: 01/12/20 05:08 Dose: 150 mcg Documented by: Levothyroxine Sodium (Synthroid) 175 mcg PO SuTuThSa@0630 COUNT INCLUDES THE [facility] Stop: 02/09/20 06:29 Last Admin: 01/13/20 04:29 Dose: 175 mcg Documented by: Meloxicam (Mobic) 15 mg PO [facility] Stop: 02/08/20 20:59 Last Admin: 01/12/20 20:50 Dose: 15 mg Documented by: Metoprolol Succinate (Toprol Xl) 50 mg PO [facility] Stop: 02/09/20 08:59 Last Admin: 01/13/20 08:28 Dose: 50 mg Documented by: Morphine Sulfate (Morphine Sulfate) 1 mg IV Q2HWA PRN PRN Reason: Pain Stop: 01/25/20 12:39 Nitroglycerin (Nitrostat) 0.4 mg SL UD PRN PRN Reason: Chest Pain Stop: 02/08/20 20:14 Polyethylene Glycol (Miralax Powder Packet) 17 gm PO DAILY PRN PRN Reason: Constipation Stop: 02/08/20 20:14 Tramadol/Acetaminophen (Ultracet) 1 tab PO QID PRN PRN Reason: Pain Stop: 02/08/20 20:14 Last Admin: 01/13/20 00:25 Dose: 1 tab Documented by: Triamterene/HCTZ (Maxzide 37.5/25mg) 1 tab PO QAM [facility] Stop: 02/09/20 08:59 Last Admin: 01/13/20 08:28 Dose: 1 tab Documented by: (1) Chest pain Chest pain type: unspecified Qualified Code(s): R07.9 - Chest pain, unspecified
--- NOTE | 2020-01-13 17:06 | Discharge Summary ---
Date of Service January 13, 2020 Admission HPI Per Admitting Provider This is a 69yo F with a PMH of HTN, hypothyroidism, CKD III, high triglycerides and other medical problems listed below who was sent from PCP's office with worsening chest pain x 1 month. Patient endorses intermittent left sided chest pain for the past month that lasts for 15-30 minutes at a time. Pain is described as a squeezing pain that is left sided with radiation to center of chest. Is made with with exertion but also occurs sometimes at rest. Denies associated SOB, nausea or vomiting. Denies history of GERD. Pain has been worse for the past few days and patient saw Dr. Aldrich in clinic today. Was ntg in c linic and pain completely resolved. Was then given a baby aspirin and sent to ED for further evaluation. Patient denies known history of CAD but did undergo exercise stress test in 2018 that was indeterminate for inducible ischemia due to failure to achieve 85% of max HR, per records. Currently, patient is chest pain free. Denies fever, chills, headache, lightheadedness, visual changes, cough, palpitations, shortness of breath, abdominal pain, nausea, vomiting, dysuria, constipation or diarrhea. History of epistaxis so was told to avoid aspirin and NSAIDs but has been tolerating baby aspirin for 2 weeks without issue. Also taking daily Meloxicam for arthritic pain. Admission Exam Per Admitting Provider General: Well nourished, well hydrated, no acute distress and not ill appearing Eyes: PERRL, conjunctivae normal, not pale, anicteric sclerae, EOM intact bilaterally ENMT: External ear and nose normal, oropharynx normal Neck: Normal visual inspection, no tracheal deviation, old surgical scar Respiratory: Normal respiratory effort, no respiratory distress, lungs clear to auscultation, no crackles and no wheezes Cardiovascular: Pulse is regular, bradycardic (50s-60s, patient reports this is normal for her) no pedal edema Chest (Breasts): Chest: normal inspection of chest, no chest wall tenderness Gastrointestinal (Abdomen): Abdomen is not distended, soft, non-tender to palpation, no guarding, no palpable hepatosplenomegaly, normal bowel sounds Musculoskeletal: No cyanosis or clubbing, all extremities motor strength 5/5 Neurologic: Alert and oriented x 3, No focal weakness, sensation grossly intact Principal Diagnosis Severe CAD, successful PCI mid LAD Discharge Exam Constitutional well developed and well nourished; no acute distress and not ill appearing Eyes PERRL, conjunctivae normal, anicteric sclerae ENMT external ear and nose normal, oropharynx normal Neck trachea midline, no thyromegaly Respiratory normal respiratory effort; no respiratory distress Auscultation: lungs clear to auscultation bilaterally Cardiovascular Rate/Rhythm: regular rate and regular rhythm Heart Sounds: no murmur Extremities: no edema Gastrointestinal (Abdomen) Inspection/Auscultation: abdomen normal to inspection; abdomen not distended Percussion/Palpation: abdomen soft; abdomen nontender Neurologic moves all extremities; no focal motor deficits Lymphatic no cervical or axillary lymphadenopathy Discharge Data Allergies Allergy/AdvReac Type Severity Reaction Status Date / Time procaine Allergy Unknown UNKN Verified 01/09/20 19:13 aspirin AdvReac Mild BLEEDING Verified 01/09/20 19:58 ibuprofen AdvReac Unknown BLEEDING Unverified 01/09/20 19:13 Consultations 01/09/20 18:54 ED Decision to Admit Stat 01/10/20 08:00 Consult Cardiology Routine 01/12/20 08:00 Consult Cardiac Catheterization Routine 01/12/20 13:08 Consult Cardiac Rehabilitation Routine Procedures Performed Operation Date: 01/12/20 11:00 Actual Procedures p Cath, Left with Cors and Vent - Alejo Grady MD s Cineradiography w/Routine Exam - Alejo Grady MD s Fraction Flow [place] SGL Ves - Alejo Grady MD s Drug Eluting Stent SGl Vessel - Alejo Grady MD Ordered Studies 01/12/20 07:08 CL Cath Imgs for PACS use only Routine Hospital Course (1) Chest pain: This is a 69yo F with a PMH of HTN, hypothyroidism, CKD III, high triglycerides and other medical problems listed below who was sent from PCP's office with worsening chest pain x 1 month. -Worsening intermittent CP x 1 month that was relieved today with NTG in PCP's office -History of exercise stress test in 2018 that was indeterminate for inducible ischemia due to failure to achieve 85% of max HR, per records -Remains free of pain this morning and denies any other symptoms -Troponin x3 and EKG remain unremarkable for any ACS -Appreciate cardiology input and recommendation -DS E came back positive for ischemia -She remains free from symptoms -We will go for cardiac cath this morning 01/12/2020 Status post cardiac cath on 01/12/2020 Severe LAD lesion Mid LAD lesion predilated with 2.5 compliant balloon Dilated lesion stented with 2.75 x 15 mm [place] drug-eluting stent Appreciate cardiology input and recommendation (2) Hypertension: Continue Amlodipine, Maxzide, Toprol Blood pressure is controlled (3) Hypothyroidism: Continue levothyroxine (4) CKD (chronic kidney disease), stage III: Kidney function at baseline (5) Hypertriglyceridemia: Continue gemfibrozil DVT Ppx: SQ heparin Code status: FULL PCP: Elinor Dispo: Observation med tele. Plan to return home once medically stable. Discharge home this morning Total Time Total Time Spent Total Time Spent (In Minutes): 35 minutes Total Time Includes: Examination of the Patient, Discharge Planning, Medication Reconciliation and Communication With Other Providers Discharge Plan Discharge Items Patient Disposition: Home - Self-Care Reason For Visit: CHEST PAIN Discharge Diagnosis: Severe CAD, successful PCI mid LAD Condition on Discharge: Good Activity: As commented below Non-emergency contact: Primary Care Provider Call non-emergency contact if: you have any medication questions and your symptoms worsen Follow-up/Referrals: Dana Gill DO [Primary Care Provider] - 01/19/20 3:00 pm (01/19/2020 3:00 PM Provider Zeferino Aldrich DO Department Family [facility] cardiology office will call you for an appointment ) Diet: Heart Healthy Addtl Attending Provider Instructions: Please continue medications as advised Addtl Application Coordinator Provider Instructions: ACTIVITY RECOMMENDATIONS: Excess manipulation of the wrist should be avoided for the next 24-48 hours. * No lifting over 2 pounds (approximately a 1/2 gallon of milk) with the utilized arm for 24 hours. * No strenuous activity such as bowling or tennis for 3 days. * Keep the site of the procedure covered with a bandage for 24 hours. *You may shower the day after the procedure. Do not take a tub bath or submerge the puncture site in water for the next 3 days. *Do not operate any motorized equipment for 3 days. SPECIAL CARE INSTRUCTIONS: The site may be slightly bruised and sore following your procedure. Should any of the following occur, contact the DrAshok who performed your procedure. 1. Redness/inflammation, swelling, chills, or fever, or colored drainage at procedure site within 3-7 days after your procedure. 2. Coldness, discoloration, ongoing numbness, severe pain, or swelling. Expect mild tingling of hand and tenderness at the puncture site for up to three days. If this persists beyond three days, or other symptoms develop, notify the DrAshok who performed your procedure. BLEEDING: If the procedure site on your wrist begins to bleed, do not panic 1. Place 1 or 2 fingers firmly just slightly above the insertion site to stop the bleeding. You may be able to feel your pulse as you hold pressure. 2. Lift your finger after 5 minutes to see if the bleeding has stopped. 3. Once the bleeding has stopped, gently wipe the wrist area clean with a bandage. * If the bleeding from your wrist does not stop after 10 minutes, or if there is a large amount of bleeding or spurting, call 911 (do not drive yourself to the hospital). SKIN IRRITATION: * You may experience some redness and/or swelling in the area where radiation was administered. If any skin irritation occurs, please contact your family physician. FOLLOW UP VISIT: Keep any scheduled doctor appointments. Pending Studies at Discharge: No Stand-Alone Forms: [facility] [employer], Smoking Cessation Medications and DC Order Prescriptions: New atorvastatin 20 mg Tablet 20 mg PO QAM 30 Days Qty: 30 RF: 0 clopidogrel 75 mg Tablet 75 mg PO QAM 30 Days Qty: 30 RF: 0 nitroglycerin [Nitrostat] 0.4 mg Tablet, Sublingual 0.4 mg sublingual UD PRN (Reason: chest pain) 30 Days Qty: 30 RF: 0 Continued levothyroxine [Synthroid] 175 mcg tablet 175 mcg PO [place] RF: 0 tramadol-acetaminophen [Ultracet] 37.5-325 mg tablet 1 tab PO QID PRN (Reason: Pain) RF: 0 metoprolol succinate [Toprol XL] 50 mg tablet extended release 24 hr 50 mg PO QAM RF: 0 clonazepam [Klonopin] 1 mg tablet 1 mg PO HS RF: 0 amlodipine [Norvasc] 5 mg tablet 5 mg PO BID RF: 0 aspirin 81 mg Tablet,Delayed Release (Dr/Ec) 81 mg PO QAM RF: 0 citalopram [Celexa] 20 mg tablet 20 mg PO QAM RF: 0 gemfibrozil [Lopid] 600 mg tablet 600 mg PO BID RF: 0 ferrous sulfate [iron] 325 mg (65 mg iron) Tablet 325 mg PO QAM RF: 0 levothyroxine [Synthroid] 150 mcg tablet 150 mcg PO MOWEFR RF: 0 triamterene-hydrochlorothiazid [Maxzide] 75-50 mg tablet 1 tab PO QAM RF: 0 magnesium citrate 100 mg Tablet 100 mg PO BID RF: 0 Discontinued meloxicam [Mobic] 15 mg tablet 15 mg PO HS RF: 0 Discharge Orders: Discharge Order (Routine); Ordered 01/13/20 Ordered By: Scooter Aparicio Admission Data Admit Date/Time: 01/12/20 16:44 Attending Provider: Scooter Aparicio Admit Provider: Avani Gutiérrez I. Primary Care Provider: Dana Gill Other Providers: Avani Gutiérrez I. ; Ricco Pratt ; Tanmay Vyas ; Juan Diego Nails ; Lauri Coombs ; Wade Borrego ; Bruno Martinez ; Jenifer Ramírez ; Yovana Acuna ; Milton Granados ; Alejo Grady Other Interventions: Discharge Summary Assessment (RN) Last Done: 01/13/20 11:51 DC Date/Time DO NOT enter until pt leaves facility: 01/13/20 13:03
== END 2020-01-13 13:03 | disposition home or self-care (01) | DRG 247 ==
LOC: ED 17:39 → 2N 17:39 → SUATTDRO 19:00 → 2N 19:36 → 1E 01-12 13:42

== ENCOUNTER 2020-07-03 20:08 | Inpatient (IN) ==
[2020-07-03] MEDS ORDERED: ONDANSETRON INJ 2 MG/ML 2 ML VIAL IV STA (20:19)
[2020-07-03] MEDS ORDERED: MoRPHine SULFATE 4 MG/ML 1 ML CARP\\VIAL IV STA (20:19)
--- NOTE | 2020-07-03 20:25 | Emergency Department Note ---
Impression & Plan Chest pain ED Provider Note NAME: SUAD GARRETT AGE: 70 SEX: F : 1950 ARRIVES VIA: Ambulance INFORMANT: Patient, ED PROVIDER(S): Akash Ramirez DO CHIEF COMPLAINT: Chest pain HPI: The patient is a 70-year-old female who presented to the emergency department by ambulance for an evaluation of chest pain. The patient describes chest pain which she states started many months ago. She states the pain starts at her right scapula. She describes it as a spasm. She states over the last few days it started to worsen and now radiates around to the right breast. She denies having any rash. She states recently the pain has been getting worse with deep breathing. She denies having any fevers or chills. She denies having any coughing. She denies having any lower extremity swelling or pain. She has been seen for this pain before and does have a lidocaine patch on her right scapular region. She states that she notices the pain moderate to severe and it is worsened with movement of the arm as well as deep breathing. She states the pain is sometimes improved by remaining still. ROS: See above HPI for pertinent positives & negatives. A total of 10 systems reviewed and were otherwise negative. PAST MEDICAL HISTORY: See Below PAST SURGICAL HISTORY: See Below FAMILY HISTORY: See Below SOCIAL HISTORY: See Below HOME MEDICATIONS: See Below ALLERGIES: See Below VITALS: See Below PHYSICAL EXAMINATION: GENERAL: The patient is awake and alert. The patient is very anxious appearing and appears to be uncomfortable. EYES: The conjunctivae are clear. The pupils are round and reactive. EARS, NOSE, MOUTH AND THROAT: The nose is without any evidence of any deformity. Mucous membranes are moist. Tongue is midline. NECK: The neck is nontender and supple. RESPIRATORY: Splinting respirations were noted. There were no rales rhonchi or wheezing noted. CARDIOVASCULAR: Regular rate and rhythm noted there no murmurs rubs or gallops normal S1 normal S2. GASTROINTESTINAL: The abdomen is soft. Abdomen is nontender. BACK: There is tenderness in the musculature surrounding the right scapula. There is no midline tenderness. MUSCULOSKELETAL/EXTREMITIES: There is no evidence of gross deformity full range of motion is noted in the hips and shoulders. SKIN: There is no obvious evidence of any rash. There are no petechiae, pallor or cyanosis noted. NEUROLOGIC: Patient is awake alert and oriented x3 strength is symmetric patellar reflexes are 2+ bilaterally MEDICAL DECISION MAKING: The patient is a 70-year-old female who presented to the emergency department by ambulance for an evaluation of chest pain. The patient had right-sided chest pain which began at her scapula. It appeared to be pleuritic in nature at times but was also very severe and appeared to be almost like a muscle spasm according to the patient. She is had similar episodes in the past but this is the first time it radiated to her chest. The pain is not completely reproducible. The patient had serial EKG and serial troponin measurements in the emergency depar tme. Her troponin was detectable but not over the threshold to be positive. I discussed the patient's laboratory and radiographic studies with her. I also discussed the limitations of the emergency department work-up for chest pain with her. Ultimately I feel given the patient's age and comorbidities she would be a better candidate for inpatient work-up for chest pain. I discussed this with the patient and she was agreeable. She was treated with pain medication in the emergency department. Triage Nursing notes reviewed. Prior medical records reviewed Vital Signs: reviewed and remarkable for elevated blood pressure. Differential diagnosis: Cardiac ischemia, aortic dissection, pulmonary embolism, pneumothorax, pneumonia, pericarditis, myocarditis, esophageal rupture, GERD, cholecystitis, pancreatitis, musculoskeletal, as well as other pathologies. ER treatment provided: See below Diagnostics interpreted by me: ECG: EKG was obtained in the emergency department. My interpretation is normal sinus rhythm at 60 bpm. There is no ectopy. There is no acute ST segment abnormalities noted. This tracing was compared to one from January 282019. No significant changes were noted. A second EKG was obtained in the emergency department. My interpretation is normal sinus rhythm at 70 bpm. There was no ectopy. There was no acute ST segment abnormalities noted. This was compared to the earlier tracing and no significant changes were noted. Cardiac Monitoring: An order was placed for continuous cardiac monitoring. The monitor shows a rate of 75 bpm with sinus rhythm. Laboratory studies: As stated above and show below. Imaging studies: See below Consultation(s): 1151: I discussed this case with Dr. Payne [facility]. Past Med/Surg History Medical History (Updated 07/03/20 @ 23:29 by Akash Ramirez DO) CKD (chronic kidney disease), stage III Hematest positive stools plan to do colonoscopy 03/17 Hx of fall 2017 had fallen from being tripped by dogs, had multiple bruises and sutures in head and injury to clavicle and still has problems with shoulder movement Hypertension Hypertriglyceridemia Hypothyroidism Thrombocytopenia Surgical History History of meningioma of the brain removed was having migraines and then found to have meningioma of the brain History of partial hysterectomy History of thyroidectomy Thyroid storm Hx of appendectomy Hx of cardiac cath 01/12/2020 dr Grady at [facility], was seen at doctor office for chest pain and no feeling well.and was sent to hospital and failed chemical stress test and then taken to heart cath and has one stent LINDSAY Hx of decompressive lumbar laminectomy Hx of esophagogastroduodenoscopy S/P cholecystectomy Stented coronary artery PCI of mid LAD with LINDSAY. Small caliber distal circumflex to small for interve ntion. Medically manage. Family History Other Heart disease Stroke Social History Smoking Status: Former smoker Second Hand Exposure: No; Hx Alcohol Use: No Hx Substance Use: No Preferred Language: Turkish Communication Ability: Effective Security Control Room Officer Required: No Beliefs That Will Affect Care: None and Islam Islam Beliefs: Rastafarian Current Living Situation: Family current occupation: Retired Feels Safe at Home: Yes Assistive Devices: Cane and Glasses Allergies Allergies Allergy/AdvReac Type Severity Reaction Status Date / Time procaine Allergy Unknown UNKN Verified 03/17/20 10:27 aspirin AdvReac Mild BLEEDING Verified 03/17/20 10:27 ibuprofen AdvReac Unknown BLEEDING Verified 03/17/20 10:27 Home Meds Home Medications Medication Instructions Recorded Confirmed aspirin 81 mg PO QAM 01/09/20 07/03/20 citalopram [Celexa] 20 mg PO QAM 01/09/20 07/03/20 clonazepam [Klonopin] 1 mg PO HS 01/09/20 07/03/20 ferrous sulfate [iron] 325 mg PO QAM 01/09/20 07/03/20 levothyroxine [Synthroid] 150 mcg PO MOWEFR 01/09/20 07/03/20 levothyroxine [Synthroid] 175 mcg PO SUTUTHSA 01/09/20 07/03/20 magnesium citrate 100 mg PO BID 01/09/20 07/03/20 metoprolol succinate [Toprol XL] 50 mg PO QAM 01/09/20 07/03/20 tramadol-acetaminophen [Ultracet] 1 tab PO QID PRN 01/09/20 07/03/20 potassium chloride 10 meq PO QDL 01/29/20 07/03/20 atorvastatin 20 mg PO PM 03/12/20 07/03/20 clopidogrel 75 mg PO QPM 03/12/20 07/03/20 nitroglycerin [Nitrostat] 0.4 mg SUBLINGUAL UD PRN 03/12/20 07/03/20 pantoprazole 40 mg PO BID 03/15/20 07/03/20 amlodipine 5 mg PO QAM 07/03/20 07/03/20 ascorbic [id number] 1 ea PO QAM 07/03/20 07/03/20 [Emergen-C] lidocaine 1 patch TOPICAL DIRECTED PRN 07/03/20 07/03/20 polyethylene glycol 3350 [Miralax] 17 g PO QAM PRN 07/03/20 07/03/20 Results & Data (ED) Vital Signs Vital Signs - 24 hr 07/03/20 20:15 07/03/20 20:21 07/03/20 20:22 Temperature 37.1 C Temperature Source Oral Pulse Rate 71 Pulse Rate from SpO2 Sensor Respiratory Rate 18 Respiratory Effort / Characteristics Non-Labored Spontaneous Respiratory Depth Normal Blood Pressure 177/82 H Blood Pressure Mean 113 Blood Pressure Position Lying Pulse Oximetry 98 98 98 Oxygen Delivery Method Room Air Room Air Room Air Sepsis Recent Fever Within 48 Hours No Sepsis New/Unexplained Change in Mental Status No Sepsis Action Taken by Nursing No Action Required 07/03/20 20:31 07/03/20 21:00 07/03/20 21:31 Temperature Temperature Source Pulse Rate 67 55 L 52 L Pulse Rate from SpO2 Sensor 63 57 L 52 L Respiratory Rate 19 15 18 Respiratory Effort / Characteristics Respiratory Depth Blood Pressure 150/59 H 162/76 H 177/62 H Blood Pressure Mean 95 107 123 Blood Pressure Position Pulse Oximetry 97 95 95 Oxygen Delivery Method Room Air Room Air Sepsis Recent Fever Within 48 Hours Sepsis New/Unexplained Change in Mental Status Sepsis Action Taken by Nursing 07/03/20 22:00 07/03/20 22:30 07/03/20 23:00 Temperature Temperature Source Pulse Rate 71 72 69 Pulse Rate from SpO2 Sensor 71 72 70 Respiratory Rate 14 15 16 Respiratory Effort / Characteristics Respiratory Depth Blood Pressure 175/72 H 158/62 H 140/59 L Blood Pressure Mean 122 96 94 Blood Pressure Position Pulse Oximetry 96 94 94 Oxygen Delivery Method Sepsis Recent Fever Within 48 Hours Sepsis New/Unexplained Change in Mental Status Sepsis Action Taken by Nursing 07/03/20 23:30 Temperature Temperature Source Pulse Rate 72 Pulse Rate from SpO2 Sensor 72 Respiratory Rate 17 Respiratory Effort / Characteristics Respiratory Depth Blood Pressure 153/64 H Blood Pressure Mean 98 Blood Pressure Position Pulse Oximetry 93 Oxygen Delivery Method Sepsis Recent Fever Within 48 Hours Sepsis New/Unexplained Change in Mental Status Sepsis Action Taken by [facility] Medications Current Medication List: was personally reviewed by me Laboratory Data Attestation: I reviewed the patient's lab results. Result diagrams: 07/03/20 20:28 07/03/20 20:28 Lab Results 07/03/20 07/03/20 07/03/20 Range/Units 20:28 20:28 20:28 WBC 6.55 (4.8-10.8) K/uL RBC 5.42 H (4.2-5.4) M/uL Hgb 14.9 (12.0-16.0) g/dL Hct 42.8 (37-47) % MCV 79.0 L (80-100) fL MCH 27.5 (25-34) pg MCHC 34.8 (32-36) g/dL RDW Std Deviation 39.4 (36.4-46.3) fL RDW Coeff of Quoc 13.9 (11.5-14.5) % Plt Count 123 L (130-400) K/uL MPV 11.6 H (7.4-10.4) fL Immature Gran % (Auto) 0.5 % Neut % (Auto) 67.0 % Lymph % (Auto) 15.1 % [place] % (Auto) 11.3 % Eos % (Auto) 5.2 % Baso % (Auto) 0.9 % Neut # (Auto) 4.39 (1.4-6.5) K/uL Lymph # (Auto) 0.99 L (1.2-3.4) K/uL [place] # (Auto) 0.74 H (0.11-0.59) K/uL Eos # (Auto) 0.34 (0-0.5) K/uL Baso # (Auto) 0.06 (0-0.2) K/uL Immature Gran # (Auto) 0.03 H (0.00-0.02) K/uL PT 11.4 (9.0-12.0) Seconds INR 1.1 (0.9-1.1) APTT 30.2 (21.0-31.0) Seconds PTT Ratio 1.1 D-Dimer 480 (0-500) ug/L FEU Sodium 138 (136-145) mmol/L Potassium 4.1 (3.5-5.1) mmol/L Chloride 103 (98-107) mmol/L Carbon Dioxide 29 (21-32) mmol/L Anion Gap 6.0 (3-11) BUN 21 H (7-18) mg/dl Creatinine 0.73 (0.6-1.2) mg/dl Est Cr Clr Drug Dosing 65.2 ml/min Est GFR ( Amer) 98.1 Est GFR (Non-Af Amer) 84.6 BUN/Creatinine Ratio 29.2 H (10-20) Glucose 115 H (70-99) mg/dl Calcium 9.2 (8.5-10.1) mg/dl Total Bilirubin 0.7 (0.2-1) mg/dl AST 29 (15-37) U/L ALT 29 (12-78) U/L Alkaline Phosphatase 102 (45-117) U/L Troponin I 0.034 (0-0.045) ng/ml Total Protein 7.4 (6.4-8.2) gm/dl Albumin 3.7 (3.4-5.0) gm/dl Globulin 3.7 (2.5-4.0) gm/dl Albumin/Globulin Ratio 1.0 (0.9-2) Lipase 243 (73-393) U/L 07/03/20 Range/Units 22:33 WBC (4.8-10.8) K/uL RBC (4.2-5.4) M/uL Hgb (12.0-16.0) g/dL Hct (37-47) % MCV (80-100) fL MCH (25-34) pg MCHC (32-36) g/dL RDW Std Deviation (36.4-46.3) fL RDW Coeff of Quoc (11.5-14.5) % Plt Count (130-400) K/uL MPV (7.4-10.4) fL Immature Gran % (Auto) % Neut % (Auto) % Lymph % (Auto) % [place] % (Auto) % Eos % (Auto) % Baso % (Auto) % Neut # (Auto) (1.4-6.5) K/uL Lymph # (Auto) (1.2-3.4) K/uL [place] # (Auto) (0.11-0.59) K/uL Eos # (Auto) (0-0.5) K/uL Baso # (Auto) (0-0.2) K/uL Immature Gran # (Auto) (0.00-0.02) K/uL PT (9.0-12.0) Seconds INR (0.9-1.1) APTT (21.0-31.0) Seconds PTT Ratio D-Dimer (0-500) ug/L FEU Sodium (136-145) mmol/L Potassium (3.5-5.1) mmol/L Chloride (98-107) mmol/L Carbon Dioxide (21-32) mmol/L Anion Gap (3-11) BUN (7-18) mg/dl Creatinine (0.6-1.2) mg/dl Est Cr Clr Drug Dosing ml/min Est GFR ( Amer) Est GFR (Non-Af Amer) BUN/Creatinine Ratio (10-20) Glucose (70-99) mg/dl Calcium (8.5-10.1) mg/dl Total Bilirubin (0.2-1) mg/dl AST (15-37) U/L ALT (12-78) U/L Alkaline Phosphatase (45-117) U/L Troponin I 0.039 (0-0.045) ng/ml Total Protein (6.4-8.2) gm/dl Albumin (3.4-5.0) gm/dl Globulin (2.5-4.0) gm/dl Albumin/Globulin Ratio (0.9-2) Lipase (73-393) U/L Administered Medications Discontinued Medications Hydromorphone HCl (Hydromorphone Inj 0.5 Mg/0.5 Ml Syr) 0.5 mg IV NOW STA Stop: 07/03/20 22:18 Last Admin: 07/03/20 22:23 Dose: 0.5 mg Documented by: [id number] Sodium Chloride (Nss) 500 mls @ 999 mls/hr IV .Q31M PETER Stop: 07/03/20 21:00 Last Infusion: 07/03/20 21:13 Dose: 0 mls/hr Documented by: [id number] Admin: 07/03/20 20:40 Dose: 999 mls/hr Documented by: [id number] Morphine Sulfate (Morphine Sulfate 4 Mg/Ml 1 Ml Carp\Vial) 4 mg IV NOW STA Stop: 07/03/20 20:20 Last Admin: 07/03/20 20:37 Dose: 4 mg Documented by: [id number] Ondansetron HCl (Ondansetron Inj 2 Mg/Ml 2 Ml Vial) 4 mg IV NOW STA Stop: 07/03/20 20:20 Last Admin: 07/03/20 20:37 Dose: 4 mg Documented by: [id number] Imaging Data Attestation: I personally reviewed and interpreted this imaging study as follows: My Impression: 1 view the chest x-ray was obtained in the emergency department. My interpretation is heart size is top normal. There is no free air. There is no definite filtrate. There was some pleural thickening noted on the right side. There was hilar fullness noted on the right side. This was compared to a chest x-ray from January 282019. No significant changes were noted. Blood Pressure Blood Pressure Findings: Elevated blood pressure Blood Pressure Disposition: further management by hospitalist Discharge Plan Visit Data Chief Complaint: Shoulder Pain Stated Complaint: RT. SIDED SHOULDER PAIN ED Provider: Akash Ramirez Discharge Problem: Chest pain Patient Disposition: Being Evaluated by Hospitalist Condition: Good Forms Stand Alone Forms: My [facility] Prescriptions Prescriptions: No Action potassium chloride 10 mEq capsule, extended release 10 meq PO QDL RF: 0 atorvastatin 20 mg Tablet 20 mg PO PM RF: 0 clopidogrel 75 mg Tablet 75 mg PO QPM RF: 0 nitroglycerin [Nitrostat] 0.4 mg Tablet, Sublingual 0.4 mg sublingual UD PRN (Reason: Chest Pain) RF: 0 pantoprazole 40 mg Tablet,Delayed Release (Dr/Ec) 40 mg PO BID RF: 0 amlodipine 5 mg tablet 5 mg PO QAM RF: 0 lidocaine 5 % Adhesive Patch,Medicated 1 patch TOPICAL DIRECTED PRN (Reason: Back Pain) RF: 0 polyethylene glycol 3350 [Miralax] 17 gram/dose Powder 17 g PO QAM PRN (Reason: Constipation) RF: 0 Emergen-C 1,000 mg Powder Effervescent In Packet 1 ea PO QAM RF: 0 levothyroxine [Synthroid] 175 mcg tablet 175 mcg PO SUTUTHSA RF: 0 tramadol-acetaminophen [Ultracet] 37.5-325 mg tablet 1 tab PO QID PRN (Reason: Pain) RF: 0 metoprolol succinate [Toprol XL] 50 mg tablet extended release 24 hr 50 mg PO QAM RF: 0 clonazepam [Klonopin] 1 mg tablet 1 mg PO HS RF: 0 aspirin 81 mg Tablet,Delayed Release (Dr/Ec) 81 mg PO QAM RF: 0 citalopram [Celexa] 20 mg tablet 20 mg PO QAM RF: 0 ferrous sulfate [iron] 325 mg (65 mg iron) Tablet 325 mg PO QAM RF: 0 levothyroxine [Synthroid] 150 mcg tablet 150 mcg PO MOWEFR RF: 0 magnesium citrate 100 mg Tablet 100 mg PO BID RF: 0 Referrals Referrals: Zeferino Aldrich DO [Primary Care Provider] - Discharge Problem: Chest pain Qualifiers: Chest pain type: unspecified Qualified Code(s): R07.9 - Chest pain, unspecified
[2020-07-03] MEDS ORDERED: SODIUM CHLORIDE 0.9% 500 ML IV SCH (20:30)
[2020-07-03 20:45] LABS: Basophils # (auto) 0.06 K/uL (0-0.2); Basophils % (auto) 0.9 %; Eosinophils # (auto) 0.34 K/uL (0-0.5); Eosinophils % (auto) 5.2 %; Hematocrit (blood only) 42.8 % (37-47); Hemoglobin 14.9 g/dL (12.0-16.0); Immature Granulocytes # (auto) 0.03 K/uL (0.00-0.02); Immature Granulocytes % (auto) 0.5 %; Lymphocytes # (auto) 0.99 K/uL (1.2-3.4); Lymphocytes % (auto) 15.1 %; Mean Corpuscular Hemoglobin 27.5 pg (25-34); Mean Corpuscular Hgb Conc 34.8 g/dL (32-36); Mean Platelet Volume 11.6 fL (7.4-10.4); Monocytes # (auto) 0.74 K/uL (0.11-0.59); Monocytes % (auto) 11.3 %; Neutrophils # (auto) 4.39 K/uL (1.4-6.5); Platelet Count 123 K/uL (130-400); RDW Coefficient of Variation 13.9 % (11.5-14.5); RDW Standard Deviation 39.4 fL (36.4-46.3); Red Blood Count 5.42 M/uL (4.2-5.4); White Blood Count 6.55 K/uL (4.8-10.8)
[2020-07-03 20:56] LABS: D Dimer 480 ug/L FEU (0-500); INR 1.1 (0.9-1.1); Partial Thromboplastin Ratio 1.1; Partial Thromboplastin Time 30.2 Seconds (21.0-31.0); Prothrombin Time 11.4 Seconds (9.0-12.0)
[2020-07-03 21:02] LABS: Albumin Level 3.7 gm/dl (3.4-5.0); BUN Creatinine Ratio 29.2 (10-20); Calcium 9.2 mg/dl (8.5-10.1); Creatinine Clr Calc Pharmacy 65.2 ml/min; Est GFR (African American) 98.1; Est GFR (Non-African American) 84.6; Potassium 4.1 mmol/L (3.5-5.1)
[2020-07-03 21:06] LABS: Bilirubin,Total 0.7 mg/dl (0.2-1); Globulin 3.7 gm/dl (2.5-4.0); Total Protein 7.4 gm/dl (6.4-8.2); Troponin I 0.034 ng/ml (0-0.045)
[2020-07-03] MEDS ORDERED: HYDROmorphone INJ 0.5 MG/0.5 ML SYR IV STA (22:17)
[2020-07-03 23:06] LABS: Troponin I 0.039 ng/ml (0-0.045)
[2020-07-03] MEDS ORDERED: NITROGLYCERIN SL 0.4 MG/TAB TAB SL STA (23:36)
[2020-07-03 23:47] LABS: Magnesium 1.6 mg/dl (1.8-2.4)
[2020-07-04] MEDS ORDERED: amLODIPine BESYLATE 5 MG TAB PO ONE (00:23)
[2020-07-04] MEDS ORDERED: HYDROmorphone INJ 0.5 MG/0.5 ML SYR IV STA (00:23)
--- NOTE | 2020-07-04 00:24 | History & Physical Report ---
Date of Service July 04, 2020 Assessment & Plan (1) Chest pain: Pleuritic right-sided chest pain with response to nitroglycerin and minimal troponin elevation Rule out ACS given history CAD status post stent Musculoskeletal component given reproducibility on palpation of chest wall hypertension, slight elevated hyperlipidemia, on statin Rx postsurgical hypothyroidism, euthyroid as of recent TSH Hyperglycemia, rule out DM Mild thrombocytopenia, unclear etiology OBS PCU Analgesia Follow troponin Cardiology consult RE chest pain relieved by nitroglycerin, HX CAD Increase Amlodipine dose to 10 mg daily Check hemoglobin A1c DVT prophylaxis SCDs RE thrombocytopenia Full code Text document was generated using [employer]healo voice recognition software. It may contain grammatical or spelling errors. Kindly contact undersigned for clarification of any documentation item in q uestion. History of Present Illness Chief Complaint: Right-sided chest pain Primary Care Provider: Zeferino Aldrich DO History obtained from patient and records. Medical history significant for CAD status post stent, hypertension, hyperlipidemia, postsurgical hypothyroidism, osteoarthritis, past tobacco abuse. Last confinement December 2019 for left-sided chest pain. Diagnostic cardiac cath showed severe LAD lesion status post stent placement. This morning, patient woke up with achy pleuritic right-sided shoulder pain going around her right chest with shortness of breath. Different from her chronic right shoulder pain post whiplash injury from a few years ago. No cough symptoms. No known COVID-19 contacts. At the ER, chest pain improved post nitroglycerin administration. 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 Allergies Allergy/AdvReac Type Severity Reaction Status Date / Time procaine Allergy Unknown UNKN Verified 03/17/20 10:27 aspirin AdvReac Mild BLEEDING Verified 03/17/20 10:27 ibuprofen AdvReac Unknown BLEEDING Verified 03/17/20 10:27 Home Medications Medication Instructions Recorded Confirmed Type aspirin 81 mg PO QAM 01/09/20 07/03/20 History citalopram [Celexa] 20 mg PO QAM 01/09/20 07/03/20 History clonazepam [Klonopin] 1 mg PO HS 01/09/20 07/03/20 History ferrous sulfate [iron] 325 mg PO QAM 01/09/20 07/03/20 History levothyroxine [Synthroid] 150 mcg PO MOWEFR 01/09/20 07/03/20 History levothyroxine [Synthroid] 175 mcg PO SUTUTHSA 01/09/20 07/03/20 History magnesium citrate 100 mg PO BID 01/09/20 07/03/20 History metoprolol succinate [Toprol XL] 50 mg PO QAM 01/09/20 07/03/20 History tramadol-acetaminophen [Ultracet] 1 tab PO QID PRN 01/09/20 07/03/20 History potassium chloride 10 meq PO QDL 01/29/20 07/03/20 History atorvastatin 20 mg PO PM 03/12/20 07/03/20 History clopidogrel 75 mg PO QPM 03/12/20 07/03/20 History nitroglycerin [Nitrostat] 0.4 mg SUBLINGUAL UD PRN 03/12/20 07/03/20 History pantoprazole 40 mg PO BID 03/15/20 07/03/20 History amlodipine 5 mg PO QAM 07/03/20 07/03/20 History ascorbic [id number] 1 ea PO QAM 07/03/20 07/03/20 History [Emergen-C] lidocaine 1 patch TOPICAL DIRECTED PRN 07/03/20 07/03/20 History polyethylene glycol 3350 [Miralax] 17 g PO QAM PRN 07/03/20 07/03/20 History Past Med/Surg History Medical History (Updated 07/03/20 @ 23:29 by Akash Ramirez DO) CKD (chronic kidney disease), stage III Hematest positive stools plan to do colonoscopy 03/17 Hx of fall 2017 had fallen from being tripped by dogs, had multiple bruises and sutures in head and injury to clavicle and still has problems with shoulder movement Hypertension Hypertriglyceridemia Hypothyroidism Thrombocytopenia Surgical History History of meningioma of the brain removed was having migraines and then found to have meningioma of the brain History of partial hysterectomy History of thyroidectomy Thyroid storm Hx of appendectomy Hx of cardiac cath 01/12/2020 dr Grady at [facility], was seen at doctor office for chest pain and no feeling well.and was sent to hospital and failed chemical stress test and then taken to heart cath and has one stent LINDSAY Hx of decompressive lumbar laminectomy Hx of esophagogastroduodenoscopy S/P cholecystectomy Stented coronary artery PCI of mid LAD with LINDSAY. Small caliber distal circumflex to small for intervention. Medically manage. Family History Other Heart disease Stroke Social History Smoking Status: Never smoker Second Hand Exposure: No; Do You Dip or Chew Tobacco: No; Hx Alcohol Use: No Hx Substance Use: No Preferred Language: German Communication Ability: Effective Commercial Loan Processor Required: No Beliefs That Will Affect Care: None Current Living Situation: Family current occupation: Retired Other Information That Helps Us Care for You: No Feels Safe at Home: Yes Safety Concerns: Feels Safe At This Time Assistive Devices: Cane and Glasses Review of Systems Review of Systems: As per HPI, all 10 systems reviewed, all other ROS negative Physical Exam Physical Exam: GENERAL: Slightly uncomfortable, pleasant, no respiratory distress SKIN: Normal color, warm HEENT: Bespectacled, [place] palpebral conjunctivae, no ptosis, moist buccal mucosa NECK : Supple, no tenderness CHEST : Decreased breath sounds, right-sided chest wall tenderness HEART : RRR, no obvious murmurs ABDOMEN: Some distention, nontender EXTREMITIES : No LE swelling/tenderness, no other conspicuous deformities noted NEUROLOGIC : Coherent, no facial asymmetry, no other gross focality Results & Data Results & Data ([facility]) Vital Signs (Past 12 Hours) Vital Signs Temp Pulse Resp BP Pulse Ox 07/03/20 23:30 72 17 153/64 H 93 07/03/20 23:00 69 16 140/59 L 94 07/03/20 22:30 72 15 158/62 H 94 07/03/20 22:00 71 14 175/72 H 96 07/03/20 21:31 52 L 18 177/62 H 95 07/03/20 21:00 55 L 15 162/76 H 95 07/03/20 20:31 67 19 150/59 H 97 07/03/20 20:22 98 07/03/20 20:21 98 07/03/20 20:15 37.1 C 71 18 177/82 H 98 Laboratory Results Laboratory Results WBC 6.55 K/uL (4.8-10.8) 07/03/20 20: RBC 5.42 M/uL (4.2-5.4) H 07/03/20 20: Hgb 14.9 g/dL (12.0-16.0) 07/03/20 Hct 42.8 % (37-47) 07/03/20 20 MCV 79.0 fL (80-100) L 07/03/20 MCH 27.5 pg (25-34) 07/03/20 MCHC 34.8 g/dL (32-36) 07/03/20 RDW Std Deviation 39.4 fL (36.4-46.3) 07/03/20 RDW Coeff of Quoc 13.9 % (11.5-14.5) 07/03/20 Plt Count 123 K/uL (130-400) L 07/03/20 MPV 11.6 fL (7.4-10.4) H 07/03/20: Immature Gran % (Auto) 0.5 % 07/03/20: Neut % (Auto) 67.0 % 07/03/20: Lymph % (Auto) 15.1 % 07/03/20: [place] % (Auto) 11.3 % 07/03/20: Eos % (Auto) 5.2 % 07/03/20: Baso % (Auto) 0.9 % 07/03/20 Neut # (Auto) 4.39 K/uL (1.4-6.5) 07/03/20: Lymph # (Auto) 0.99 K/uL (1.2-3.4) L 07/03/20: [place] # (Auto) 0.74 K/uL (0.11-0.59) H 07/03/20: Eos # (Auto) 0.34 K/uL (0-0.5) 07/03/20: Baso # (Auto) 0.06 K/uL (0-0.2) 07/03/20 Immature Gran # (Auto) 0.03 K/uL (0.00-0.02) H 07/03/20 20: PT 11.4 Seconds (9.0-12.0) 07/03/20 20: INR 1.1 (0.9-1.1) 07/03/20 20: APTT 30.2 Seconds (21.0-31.0) 07/03/20 20: PTT Ratio 1.1 07/03/20 20: D-Dimer 480 ug/L FEU (0-500) 07/03/20 20: Sodium 138 mmol/L (136-145) 07/03/20 20: Potassium 4.1 mmol/L (3.5-5.1) 07/03/20: Chloride 103 mmol/L (98-107) 07/03/20: Carbon Dioxide 29 mmol/L (21-32) 07/03/20 20: Anion Gap 6.0 (3-11) 07/03/20 20: BUN 21 mg/dl (7-18) H 07/03/20 20: Creatinine 0.73 mg/dl (0.6-1.2) 07/03/20 20: Est Cr Clr Drug Dosing 65.2 ml/min 07/03/20 20: Est GFR ( Amer) 98.1 07/03/20 20: Est GFR (Non-Af Amer) 84.6 07/03/20 20: BUN/Creatinine Ratio 29.2 (10-20) H 07/03/20 20: Glucose 115 mg/dl (70-99) H 07/03/20 20: Calcium 9.2 mg/dl (8.5-10.1) 07/03/20 20: Magnesium 1.6 mg/dl (1.8-2.4) L 07/03/20: Total Bilirubin 0.7 mg/dl (0.2-1) 07/03/20 20: AST 29 U/L (15-37) 07/03/20 20: ALT 29 U/L (12-78) 07/03/20 20: Alkaline Phosphatase 102 U/L (45-117) 07/03/20 20: Troponin I 0.039 ng/ml (0-0.045) 07/03/20 22:33 Total Protein 7.4 gm/dl (6.4-8.2) 07/03/20 20:28 Albumin 3.7 gm/dl (3.4-5.0) 07/03/20 20:28 Globulin 3.7 gm/dl (2.5-4.0) 07/03/20 20:28 Albumin/Globulin Ratio 1.0 (0.9-2) 07/03/20 20:28 Lipase 243 U/L (73-393) 07/03/20 20:28 SARS-CoV-2 Ag (Rapid) Negative (Negative) 07/04/20 Unknown Diagnostic Findings Chest x-ray as per my interpretation atelectasis, cardiomegaly EKG as per my interpretation : Rate 60, NSR, normal axis, no ischemia (1) Chest pain Chest pain type: unspecified Qualified Code(s): R07.9 - Chest pain, unspecified
[2020-07-04 01:25] LABS: Lyme Ab IgG w/WB Rflx Negative (Negative)
[2020-07-04 01:26] LABS: Lyme Ab IgM w/WB Rflx Negative (Negative)
[2020-07-04] MEDS ORDERED: SODIUM CHLORIDE 0.9% 1000ML 1,000 ML IV ONE (02:12)
[2020-07-04] MEDS ORDERED: PROMETHAZINE HCL 6.25 MG in SODIUM CHLORIDE 0.9% 50 ML IV PRN (02:12)
[2020-07-04] MEDS ORDERED: LORazepam 0.25 MG/0.5 ML VIAL IV PRN (02:12)
[2020-07-04] MEDS ORDERED: NITROGLYCERIN SL 0.4 MG/TAB TAB SL PRN (02:12)
[2020-07-04] MEDS ORDERED: traMADol HCL 50 MG TABLET PO PRN (02:12)
[2020-07-04] MEDS ORDERED: MAGNESIUM SULFATE / D5W 1 GM/100 ML BAG IV ONE (02:12)
[2020-07-04] MEDS ORDERED: ACETAMINOPHEN 325 MG TAB PO PRN (02:12)
[2020-07-04] MEDS ORDERED: LEVOTHYROXINE SODIUM 175 MCG TABLET PO SCH (06:30)
[2020-07-04] MEDS: HYDROmorphone INJ 0.5 MG/0.5 ML SYR IV PRN ×2 (06:34→10:02)
[2020-07-04 06:36] LABS: Estimated Average Glucose 82 mg/dl; Hemoglobin A1C 4.5 % (4.5-5.6)
[2020-07-04 07:07] LABS: Basophils # (auto) 0.06 K/uL (0-0.2); Basophils % (auto) 0.8 %; Eosinophils # (auto) 0.17 K/uL (0-0.5); Eosinophils % (auto) 2.2 %; Hematocrit (blood only) 41.8 % (37-47); Hemoglobin 14.4 g/dL (12.0-16.0); Immature Granulocytes # (auto) 0.02 K/uL (0.00-0.02); Immature Granulocytes % (auto) 0.3 %; Mean Corpuscular Hemoglobin 26.9 pg (25-34); Mean Corpuscular Hgb Conc 34.4 g/dL (32-36); Mean Platelet Volume 11.5 fL (7.4-10.4); Monocytes # (auto) 0.69 K/uL (0.11-0.59); Monocytes % (auto) 8.9 %; Neutrophils # (auto) 5.44 K/uL (1.4-6.5); Neutrophils % (auto) 69.8 %; Platelet Count 129 K/uL (130-400); RDW Standard Deviation 39.2 fL (36.4-46.3); Red Blood Count 5.36 M/uL (4.2-5.4); White Blood Count 7.78 K/uL (4.8-10.8)
[2020-07-04 07:18] LABS: Partial Thromboplastin Ratio 1.1; Partial Thromboplastin Time 30.6 Seconds (21.0-31.0)
--- NOTE | 2020-07-04 07:31 | XRay Report ---
XR chest 1V portable CLINICAL HISTORY: Atypical chest pain COMPARISON STUDY: 01/29/2020 FINDINGS: The heart is enlarged. There is no focal pulmonary consolidation. There is no failure. Ther e are no pleural effusions. There is mild chronic interstitial thickening.[ IMPRESSION: Mild cardiomegaly. No acute findings. ACT 112: Negative or not required by law. Electronically signed by: Avel Kate M.D. 07/04/2020 7:30 AM
[2020-07-04 07:42] LABS: BUN Creatinine Ratio 30.2 (10-20); Blood Urea Nitrogen 19 mg/dl (7-18); Calcium 8.6 mg/dl (8.5-10.1); Carbon Dioxide 28 mmol/L (21-32); Chloride 102 mmol/L (98-107); Creatinine Clr Calc Pharmacy 73.9 ml/min; Est GFR (African American) 106.8; Est GFR (Non-African American) 92.2; Glucose 97 mg/dl (70-99); Magnesium 2.3 mg/dl (1.8-2.4); Potassium 3.6 mmol/L (3.5-5.1); Sodium 135 mmol/L (136-145)
[2020-07-04 07:53] LABS: C Reactive Protein < 0.29 mg/dl (0-0.29); Thyroid Stimulating Hormone 0.084 uIu/ml (0.300-4.500); Troponin I 0.039 ng/ml (0-0.045)
[2020-07-04] MEDS: CITALOPRAM 20 MG TAB PO SCH (08:43)
[2020-07-04] MEDS: MAGNESIUM OXIDE 400 MG TAB PO SCH ×2 (08:43→19:42)
[2020-07-04] MEDS: METOPROLOL SUCC 50MG EXT REL TAB PO SCH (08:43)
[2020-07-04] MEDS: ASPIRIN 81 MG ECTAB PO SCH (08:43)
[2020-07-04] MEDS: PANTOprazole 40 MG TAB PO SCH ×2 (08:43→19:42)
[2020-07-04] MEDS: FERROUS SULFATE 325 MG TAB PO SCH (08:43)
--- NOTE | 2020-07-04 10:50 | Cardiology Consultation ---
Date of Consultation July 04, 2020 Assessment & Plan (1) Shoulder pain, right: (2) Pleuritic chest pain: (3) CAD (coronary artery disease): (4) Osteoarthritis: It was my pleasure to see Mrs. Mckinney in consultation today. Given the clinical presentation I really do not see any cardiac component to her discomfort. Her chest discomfort is pleuritic in nature and occurring in the setting of muscle spasm underneath her right scapula. EKG and troponins are unremarkable. For completeness sake a 2D echocardiogram will be performed and should it come back without any new wall motion abnormalities no further cardiac testing would be indicated at this time. I will ask our orthopedic colleagues to evaluate her and order a CT of her right shoulder as well. As long as the echocardiogram comes back unremarkable will be okay to DC telemetry or to home from a cardiac standpoint. History of Present Illness Reason for Consultation: Chest pain Requesting Physician: Dr. Payne Attending Physician: Savannah Hutton, DO History of Present Illness It was my pleasure to see Mrs. Mckinney in cardiac consultation today July 04, 2020. She is a very pleasant 70-year-old woman who follows with myself as an outpatient for her history of coronary artery disease. She presented to [facility] on 07/03/2020 with complaints of severe right shoulder/back pain radiating into her chest. She states that she has been having ongoing issues with what she describes as a muscle spasm sensation underneath her right scapula. She states this has been going on for some time now ever since she was pulled by her dog's while walking them on a leash approximately 2 years ago. She generally uses acetaminophen and lidocaine patch with good resolution of her discomfort. However, upon awakening on the fifth her pain was very severe. She had no relief from the lidocaine patch or acetaminophen. She described the pain as a sharp/grabbing sensation that originates underneath her right scapula and then radiates up into her left shoulder/neck and around to her right precordium. She states it is worse with inhalation and right arm movements. She states that this is completely different than the discomfort she had prior to undergoing PCI. She has not been seen by orthopedics for this issue in the past. She states that the pain is persisting despite tramadol and Dilaudid. Ischemic work-up upon arrival is unremarkable. She was admitted to telemetry overnight with a normal EKG and unremarkable troponins. PAST MEDICAL HISTORY: 1. Coronary artery disease status post PCI to the proximal LAD December 2019 along with 70% focal stenosis of the circumflex treated medically 2. Hypertension, goal below 130/80 3. Dyslipidemia, LDL goal below 70 4. Ambulatory dysfunction Allergies Allergy/AdvReac Type Severity Reaction Status Date / Time procaine Allergy Unknown UNKN Verified 03/17/20 10:27 aspirin AdvReac Mild BLEEDING Verified 03/17/20 10:27 ibuprofen AdvReac Unknown BLEEDING Verified 03/17/20 10:27 Home Medications Medication Instructions Recorded Confirmed Type aspirin 81 mg PO QAM 01/09/20 07/03/20 History citalopram [Celexa] 20 mg PO QAM 01/09/20 07/03/20 History clonazepam [Klonopin] 1 mg PO HS 01/09/20 07/03/20 History ferrous sulfate [iron] 325 mg PO QAM 01/09/20 07/03/20 History levothyroxine [Synthroid] 150 mcg PO MOWEFR 01/09/20 07/03/20 History levothyroxine [Synthroid] 175 mcg PO SUTUTHSA 01/09/20 07/03/20 History magnesium citrate 100 mg PO BID 01/09/20 07/03/20 History metoprolol succinate [Toprol XL] 50 mg PO QAM 01/09/20 07/03/20 History tramadol-acetaminophen [Ultracet] 1 tab PO QID PRN 01/09/20 07/03/20 History potassium chloride 10 meq PO QDL 01/29/20 07/03/20 History atorvastatin 20 mg PO PM 03/12/20 07/03/20 History clopidogrel 75 mg PO QPM 03/12/20 07/03/20 History nitroglycerin [Nitrostat] 0.4 mg SUBLINGUAL UD PRN 03/12/20 07/03/20 History pantoprazole 40 mg PO BID 03/15/20 07/03/20 History amlodipine 5 mg PO QAM 07/03/20 07/03/20 History ascorbic [id number]-elu 1 ea PO QAM 07/03/20 07/03/20 History [Emergen-C] lidocaine 1 patch TOPICAL DIRECTED PRN 07/03/20 07/03/20 History polyethylene glycol 3350 [Miralax] 17 g PO QAM PRN 07/03/20 07/03/20 History Patient History Medical History (Updated 07/04/20 @ 12:49 by Ricco Pratt DO) CKD (chronic kidney disease), stage III Hematest positive stools plan to do colonoscopy 03/17 Hx of fall 2017 had fallen from being tripped by dogs, had multiple bruises and sutures in head and injury to clavicle and still has problems with shoulder movement Hypertension Hypertriglyceridemia Hypothyroidism Thrombocytopenia Surgical History History of meningioma of the brain removed was having migraines and then found to have meningioma of the brain History of partial hysterectomy History of thyroidectomy Thyroid storm Hx of appendectomy Hx of cardiac cath 01/12/2020 dr Grady at [facility], was seen at doctor office for chest pain and no feeling well.and was sent to hospital and failed chemical stress test and then taken to heart cath and has one stent LINDSAY Hx of decompressive lumbar laminectomy Hx of esophagogastroduodenoscopy S/P cholecystectomy Stented coronary artery PCI of mid LAD with LINDSAY. Small caliber distal circumflex to small for intervention. Medically manage. Family History Other Heart disease Stroke Social History Smoking Status: Never smoker Second Hand Exposure: No; Do You Dip or Chew Tobacco: No; Hx Alcohol Use: No Hx Substance Use: No Preferred Language: Mosotho Communication Ability: Effective Development Disability Specialist Required: No Beliefs That Will Affect Care: None Current Living Situation: Family current occupation: Retired Other Information That Helps Us Care for You: No Feels Safe at Home: Yes Safety Concerns: Feels Safe At This Time Assistive Devices: Cane and Glasses Review of Systems Review of Systems: All systems reviewed & are unremarkable except as noted in HPI & below Physical Exam Physical Exam: General: Awake, alert and oriented x 3. No acute distress. HEENT: Normocephalic, atraumatic. Pupils equal, round and reactive to light and accommodation. Extraocular muscles are intact. Anicteric sclera. Moist mucous membranes. Neck: No JVD. No bruit. Cardiovascular: Regular. Positive S-4. Normal S-1 and S-2. No S-3. No murmurs or rubs. Pulmonary: Clear to auscultation B/L. No rales, rhonchi or wheezing Abdomen: Bowel sounds x 4, soft. No rebound, guarding or tenderness. No or ganomegaly. Extremities: No clubbing, cyanosis or edema. +2 pedal pulses bilaterally. Skin: Warm and dry. Results & Data ([facility]) Vital Signs (Past 12 Hours) Vital Signs Temp Pulse Pulse Resp BP BP Pulse Ox 07/04/20 10:45 37.2 C 54 L 16 128/63 96 07/04/20 08:54 36.5 C 60 120/25 L 96 07/04/20 07:00 62 07/04/20 04:14 37 C 65 18 138/61 97 07/04/20 02:14 36.9 C 54 L 20 154/66 H 97 07/04/20 00:45 62 20 155/78 H 93 07/04/20 00:30 61 16 157/73 H 93 07/04/20 00:16 59 L 16 163/69 H 95 07/03/20 23:55 69 17 161/70 H 93 07/03/20 23:30 72 17 153/64 H 93 07/03/20 23:00 69 16 140/59 L 94
--- NOTE | 2020-07-04 11:39 | Electrocardiogram Report ---
Test Reason : Blood Pressure : / mmHG Vent. Rate : 060 BPM Atrial Rate : 060 BPM P-R Int : 148 ms QRS Dur : 092 ms QT Int : 428 ms P-R-T Axes : 037 017 047 degrees QTc Int : 428 ms Poor data quality, interpretation may be adversely affected Normal sinus rhythm Normal ECG When compared with ECG of 29-JAN-2020 14:18, No significant change was found Confirmed by Akash Prcie ([id number]) on 07/04/2020 11:39:24 AM Referred By: REFERRED SELF Confirmed By:Akash Price
--- NOTE | 2020-07-04 11:40 | Electrocardiogram Report ---
Test Reason : Blood Pressure : / mmHG Vent. Rate : 070 BPM Atrial Rate : 070 BPM P-R Int : 170 ms QRS Dur : 100 ms QT Int : 424 ms P-R-T Axes : 044 011 043 degrees QTc Int : 457 ms Poor data quality, interpretation may be adversely affected Normal sinus rhythm Normal ECG When compared with ECG of 03-JUL-2020 20:13, (unconfirmed) No significant change was found Confirmed by Akash Price ([id number]) on 07/04/2020 11:40:35 AM Referred By: REFERRED SELF Confirmed By:Akash Price
--- NOTE | 2020-07-04 13:58 | CT Scan Report ---
CT shoulder RT wo con CLINICAL HISTORY: Right shoulder pain following fall. COMPARISON STUDY: No previous studies for comparison. TECHNIQUE: Axial images of the right shoulder were obtained without IV contrast. Sagittal and coronal reconstructions were viewed. Automated exposure control was utilized for the study. A dose lowering technique was utilized adhering to the principles of ALARA. FINDINGS: Alignment of the right shoulder is anatomic. No acute fracture is identified. There is mode rate osteoarthritis of the right acromioclavicular joint. There is also osteoarthritis of the right g lenohumeral joint. There is no evidence for dislocation. No suspicious osseous lesions are noted. No hematoma adjacent to the right shoulder is identified by CT. There is no right axillary lymphadenopat hy. No right pneumothorax is noted. There is no right lung pulmonary contusion. No acute fractures ar e identified within visualized portions of the right-sided ribs. IMPRESSION: 1. No acute fracture or dislocation within the right shoulder. 2. Moderate osteoarthritis of the right shoulder. ACT 112: Negative or not required by law. Electronically signed by: Reagan Ivory M.D. 07/04/2020 1:57 PM
[2020-07-04] MEDS ORDERED: diazePAM 2 MG TABLET PO SCH (18:00)
--- NOTE | 2020-07-04 19:34 | Hospitalist Progress Note ---
Date of Service July 04, 2020 Assessment & Plan (1) Shoulder pain, right: MSK injury after lifting heavy furniture. Hold scheduled nightly clonazepam and given clonazepam 0.5mg PO TID with scheduled Tylenol 1000mg PO q8h together. The benzo acts as a muscle relaxer here. Avoid NSAIDs while on DAPT with recent stent in December 2019. Ice and rest. CT scan reflects OA in the joint but no evidence of fracture. She may have rotator cuff injury, which may become more apparent with time and decrease of inflammation. Cont conservative measures and followup with PCP in 2-3 weeks for re-evaluation. Activity restrictions were discussed with her and she verbalized understanding. (2) Osteoarthritis: Scheduled Tylenol as above. ICE (3) CAD (coronary artery disease): Recent LINDSAY in December 2019. Use APAP for symptom relief. Avoid NSAIDs with DAPT. Cont ASA, Plavix, Lipitor and Toprol. (4) Hypothyroidism: chronic, stable. Cont home Synthroid. TSH slightly low, would have her follow-up with PCP for adjustment. (5) Hypertension: chronic, controlled and at goal. Cont current medical therapy. (6) DVT prophylaxis: Lovenox full Dispo-dc telemetry Savannah Hutton DO [facility] Hospitalist Admission and Anticipated Discharge Date Admission Date: July 04, 2020 Subjective 70 yo F with severe right sided scapular pain -decreased right shoulder ROM -severe pain and cannot take a deep breath -was moving heavy furniture recently -ruled out for cardiac etiology overnight -she is still feeling severe pain and is having significant symptoms similar to her presentation in the ER. Review of Systems Review of Systems: All systems reviewed & are unremarkable except as noted in Subjective Physical Exam Physical Exam: CONSTITUTIONAL: WNWD, vitals as above, generally well-appe aring EYES: normal conjunctivae, no scleral icterus ENT: external ear and nose normal, oropharynx clear, MMM RESPIRATORY: clear to auscultation bilaterally, no crackles, rales or wheezes, normal respiratory effort CARDIOVASCULAR: regular rate and rhythm, S1 and 2 heard without murmurs, gallops or rubs, no JVD, no peripheral edema GASTROINTESTINAL: soft, nontender, nondistended, no guarding MUSCULOSKELETAL: some decreased abduction to overhead of right arm ROM with pain with internal rotation and liftoff. She has point tenderness that is severe in her subscapularis area and in her right posterior shoulder and upper back on the right. Otherwise she can ambulate independently and has no gross focal deficits. SKIN: warm and dry NEUROLOGIC: No facial palsy, CN 2-12 grossly intact, normal cognition, normal speech, PSYCHIATRIC: alert cooperative and oriented to person, place and time. Results & Data Results & Data ([facility]) Vital Signs (Past 12 Hours) Vital Signs Temp Pulse Pulse Resp BP Pulse Ox 07/04/20 15:42 37.0 C 56 L 148/62 H 94 07/04/20 15:00 58 L 07/04/20 12:16 36.7 C 62 125/59 L 95 07/04/20 10:45 37.2 C 54 L 16 128/63 96 07/04/20 08:54 36.5 C 60 120/25 L 96 Laboratory Results Short CBC 07/03/20 07/04/20 Range/Units 20:28 06:25 WBC 6.55 7.78 (4.8-10.8) K/uL Hgb 14.9 14.4 (12.0-16.0) g/dL Hct 42.8 41.8 (37-47) % Plt Count 123 L 129 L (130-400) K/uL BMP 07/03/20 07/04/20 20:28 06:25 Sodium 138 135 L Potassium 4.1 3.6 Chloride 103 102 Carbon Dioxide 29 28 BUN 21 H 19 H Creatinine 0.73 0.63 Glucose 115 H 97 Calcium 9.2 8.6 Cardiac Enzymes 07/03/20 07/03/20 07/04/20 Range/Units 20:28 22:33 06:25 Troponin I 0.034 0.039 0.039 (0-0.045) ng/ml Liver Function 07/03/20 Range/Units 20:28 Total Bilirubin 0.7 (0.2-1) mg/dl AST 29 (15-37) U/L ALT 29 (12-78) U/L Alkaline Phosphatase 102 (45-117) U/L Albumin 3.7 (3.4-5.0) gm/dl Diagnostic Findings [facility], [id number] CT Scan Report Patient: SUAD GARRETT Date: 07/04/20#: [id number]: [id number] HARJIND[address] Bruce ID:[id number]: [facility] Zip: [place] [id number]: [id number]: 2SSex: FRoom/Bed: [id number] Phy: Savannah Hutton, DODiagnosis: CPPri Phy: Zeferino Aldrich DOService Date: 07/04/20Fam Phy:Interpreting Phy: Reagan Ivory MDAit Phy: Adan Stephenson MD Ordering Phy: Ricco Pratt, cc: ~ CT shoulder RT wo con CLINICAL HISTORY: Right shoulder pain following fall. COMPARISON STUDY: No previous studies for comparison. TECHNIQUE: Axial images of the right shoulder were obtained without IV contrast. Sagittal and coronal reconstructions were viewed. Automated exposure control was utilized for the study. A dose lowering technique was utilized adhering to the principles of ALARA. FINDINGS: Alignment of the right shoulder is anatomic. No acute fracture is identified. There is moderate osteoarthritis of the right acromioclavicular joint. There is also osteoarthritis of the right glenohumeral joint. There is no evidence for dislocation. No suspicious osseous lesions are noted. No hematoma adjacent to the right shoulder is identified by CT. There is no right axillary lymphadenopathy. No right pneumothorax is noted. There is no right lung pulmonary contusion. No acute fractures are identified within visualized portions of the right-sided ribs. IMPRESSION: 1. No acute fracture or dislocation within the right shoulder. 2. Moderate osteoarthritis of the right shoulder. ACT 112: Negative or not required by law. Electronically signed by: Reagan Ivory M.D. 07/04/2020 1:57 PM Dictated: 07/04/20 1351Transcribed: 07/04/20 1352 Medications Administered Current Inpatient Medications Acetaminophen (Acetaminophen 500 Mg Tab) 1,000 mg PO Q8H [facility] Stop: 08/03/20 17:59 Amlodipine Besylate (Amlodipine Besylate 5 Mg Tab) [facility] [place] Stop: 08/04/20 08:59 Aspirin (Aspirin 81 Mg Ectab) 81 mg PO QAM [facility] Stop: 08/03/20 08:59 Last Admin: 07/04/20 08:43 Dose: 81 mg Documented by: Atorvastatin Calcium (Atorvastatin 20 Mg Tab) 20 mg PO PM [facility] Stop: 08/03/20 20:59 Citalopram Hydrobromide (Citalopram 20 Mg Tab) 20 mg PO QAM [facility] Stop: 08/03/20 08:59 Last Admin: 07/04/20 08:43 Dose: 20 mg Documented by: Clonazepam (Clonazepam 0.5 Mg Tab) 0.5 mg PO Q8H [facility] Stop: 08/03/20 20:59 Clopidogrel Bisulfate (Clopidogrel Bisulfate 75 Mg Tab) 75 mg PO QPM [facility] Stop: 08/03/20 20:59 Diazepam (Diazepam 2 Mg Tablet) 2 mg PO Q8H [facility] Stop: 08/03/20 17:59 Ferrous Sulfate (Ferrous Sulfate 325 Mg Tab) 325 [facility] [place] Stop: 08/03/20 08:59 Last Admin: 07/04/20 08:43 Dose: 325 mg Documented by: Levothyroxine Sodium (Levothyroxine Sodium 175 Mcg Tablet) 175 mcg PO [email or web address] [facility] Stop: 08/03/20 06:29 Last Admin: 07/04/20 05:32 Dose: 175 mcg Documented by: Levothyroxine Sodium (Levothyroxine Sodium 150 Mcg Tablet) 150 mcg PO [email or web address] [facility] Stop: 08/04/20 06:29 Magnesium Oxide (Magnesium Oxide 400 Mg Tab) 400 mg PO BID [facility] Stop: 08/03/20 08:59 Last Admin: 07/04/20 08:43 Dose: 400 mg Documented by: Metoprolol Succinate (Metoprolol Succ 50mg Ext Rel Tab) 50 mg PO [facility] Stop: 08/03/20 08:59 Last Admin: 07/04/20 08:43 Dose: 50 mg Documented by: Nitroglycerin (Nitroglycerin Sl 0.4 Mg/Tab Tab) 0.4 mg SL UD PRN PRN Reason: Chest Pain Stop: 08/03/20 02:11 Pantoprazole Sodium (Pantoprazole 40 Mg Tab) 40 mg PO BID [facility] Stop: 08/03/20 08:59 Last Admin: 07/04/20 08:43 Dose: 40 mg Documented by:
[2020-07-04] MEDS: ACETAMINOPHEN 500 MG TAB PO SCH (19:40)
[2020-07-04] MEDS ORDERED: clonazePAM 1 MG TAB PO SCH (21:00)
[2020-07-04] MEDS ORDERED: CLOPIDOGREL BISULFATE 75 MG TAB PO SCH (21:00)
[2020-07-04] MEDS ORDERED: ATORVASTATIN 20 MG TAB PO SCH (21:00)
[2020-07-04] MEDS ORDERED: ENOXAPARIN INJ 40 MG/0.4 ML SYR SQ SCH (21:00)
[2020-07-04] MEDS: clonazePAM 0.5 MG TAB PO SCH (21:36)
[2020-07-05] MEDS: clonazePAM 0.5 MG TAB PO SCH ×2 (05:30→13:36)
[2020-07-05] MEDS: ACETAMINOPHEN 500 MG TAB PO SCH ×2 (05:30→13:39)
[2020-07-05] MEDS ORDERED: LEVOTHYROXINE SODIUM 150 MCG TABLET PO SCH (06:30)
[2020-07-05] MEDS ORDERED: amLODIPine BESYLATE 5 MG TAB PO SCH (09:00)
[2020-07-05] MEDS: CITALOPRAM 20 MG TAB PO SCH (09:12)
[2020-07-05] MEDS: ASPIRIN 81 MG ECTAB PO SCH (09:12)
[2020-07-05] MEDS: FERROUS SULFATE 325 MG TAB PO SCH (09:12)
[2020-07-05] MEDS: PANTOprazole 40 MG TAB PO SCH (09:13)
[2020-07-05] MEDS: MAGNESIUM OXIDE 400 MG TAB PO SCH (09:13)
[2020-07-05] MEDS: METOPROLOL SUCC 50MG EXT REL TAB PO SCH (09:13)
--- NOTE | 2020-07-05 12:06 | Cardiology Progress Note ---
Date of Service July 05, 2020 Assessment & Plan (1) Shoulder pain, right: (2) Pleuritic chest pain: (3) CAD (coronary artery disease): (4) Osteoarthritis: Echocardiogram was unremarkable. Do not see any cardiac component to her discomfort. I will ask our orthopedic colleagues to evaluate her and order a CT of her right shoulder as well. No further cardiac testing or intervention from a cardiac standpoint. Blood pressures running a little high in the setting of pain may consider increasing amlodipine to 10 mg daily. Admission and Anticipated Discharge Date Admission Date: July 04, 2020 Subjective Patient seen and examined, chart reviewed. States that pleuritic chest pain is somewhat improved today but still significant. Denies shortness of breath, palpitations, lightheadedness, dizziness or syncope. Review of Systems Review of Systems: All systems reviewed & are unremarkable except as noted in HPI & below Physical Exam Physical Exam: General: Awake, alert and oriented x 3. No acute distress. HEENT: Normocephalic, atraumatic. Pupils equal, round and reactive to light and accommodation. Extraocular muscles are intact. Anicteric sclera. Moist mucous membranes. Neck: No JVD. No bruit. Cardiovascular: Regular. Positive S-4. Normal S-1 and S-2. No S-3. No murmurs or rubs. Pulmonary: Clear to auscultation B/L. No rales, rhonchi or wheezing Abdomen: Bowel sounds x 4, soft. No rebound, guarding or tenderness. No organomegaly. Extremities: No clubbing, cyanosis or edema. +2 pedal pulses bilaterally. Skin: Warm and dry. Results & Data ([facility]) Vital Signs (Past 12 Hours) Vital Signs Temp Pulse Resp BP Pulse Ox 07/05/20 07:26 36.8 C 59 L 18 168/58 H 97
--- NOTE | 2020-07-05 15:35 | Discharge Summary ---
Date of Service July 05, 2020 Admission HPI Per Admitting Provider History obtained from patient and records. Medical history significant for CAD status post stent, hypertension, hyperlipidemia, postsurgical hypothyroidism, osteoarthritis, past tobacco abuse. Last confinement December 2019 for left-sided chest pain. Diagnostic cardiac cath showed severe LAD lesion status post stent placement. This morning, patient woke up with achy pleuritic right-sided shoulder pain going around her right chest with shortness of breath. Different from her chronic right shoulder pain post whiplash injury from a few years ago. No cough symptoms. No known COVID-19 contacts. At the ER, chest pain improved post nitroglycerin administration. 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 Admission Exam Per Admitting Provider GENERAL: Slightly uncomfortable, pleasant, no respiratory distress SKIN: Normal color, warm HEENT: Bespectacled, Crellin palpebral conjunctivae, no ptosis, moist buccal mucosa NECK : Supple, no tenderness CHEST : Decreased breath sounds, right-sided chest wall tenderness HEART : RRR, no obvious murmurs ABDOMEN: Some distention, nontender EXTREMITIES : No LE swelling/tenderness, no other conspicuous deformities noted NEUROLOGIC : Coherent, no facial asymmetry, no other gross focal Principal Diagnosis Right shoulder strain Pleuritic chest pain Right shoulder osteoarthritis CAD s/p LINDSAY in December 2019, stable Hypothyroidism Discharge Exam CONSTITUTIONAL: WNWD, vitals as above, generally well-appearing EYES: normal conjunctivae, no scleral icterus ENT: external ear and nose normal, oropharynx clear, MMM RESPIRATORY: clear to auscultation bilaterally, no crackles, rales or wheezes, normal respiratory effort CARDIOVASCULAR: regular rate and rhythm, S1 and 2 heard without murmurs, gallops or rubs, no JVD, no peripheral edema GASTROINTESTINAL: soft, nontender, nondistended, no guarding MUSCULOSKELETAL: some improvement in shoulder ROM overall, persistent point tenderness on posterior right shoulder and upper right back musculature. SKIN: warm and dry, small skin tear that is superficial present on upper right shoulder posteriorly. NEUROLOGIC: No facial palsy, CN 2-12 grossly intact, normal cognition, normal speech, PSYCHIATRIC: alert cooperative and oriented to person, place and time. Discharge Data Allergies Allergy/AdvReac Type Severity Reaction Status Date / Time procaine Allergy Unknown UNKN Verified 03/17/20 10:27 aspirin AdvReac Mild BLEEDING Verified 03/17/20 10:27 ibuprofen AdvReac Unknown BLEEDING Verified 03/17/20 10:27 Consultations 07/04/20 02:12 Consult Cardiology Routine 07/04/20 12:11 Consult Orthopedic Surgery Routine Ordered Studies 07/04/20 12:08 CT shoulder RT wo con Routine Hospital Course (1) Shoulder pain, right: (2) CAD (coronary artery disease): The patient is a 70-year-old female who presented with right shoulder pain and was admitted to the hospital for ACS rule out given the history of coronary disease status post stent within the last 6 months. She did have a musculoskeletal component given the reproducibility of palpation of the chest wall. She was admitted to the telemetry unit and serial cardiac enzymes were negative overnight. Cardiology saw her the following day and felt her pain was not consistent with a cardiac etiology. Her EKG and troponins again were unremarkable and her coronary disease was considered to be stable. For completeness sake a 2D echocardiogram was performed and was normal aside from grade 2 diastolic dysfunction. No significant valvular pathology was noted. She remained in the hospital for another day to achieve better success with pain control. She was placed on scheduled benzos and scheduled Tylenol which greatly improved her pain overnight. She will continue this for the next week and follow-up with primary care as outpatient. At time of discharge she was hemodynamically stable and afebrile and oxygenating well on room air. She was mentating and ambulating at baseline and tolerating p.o. Orthopedics was consulted during the hospitalization and recommended to continue with conservative treatments at this time including activity modification ice Tylenol topical NSAIDs and physical and occupational therapy. Follow-up with [facility] could be considered as an outpatient if her symptoms persist or worsen. Total Time Total Time Spent Total Time Spent (In Minutes): 60 Total Time Includes: Examination of the Patient, Discharge Planning, Medication Reconciliation and Communication With Other Providers Discharge Plan Discharge Items Patient Disposition: Home - Self-Care Reason For Visit: CP Discharge Diagnosis: Right shoulder strain Pleuritic chest pain Right shoulder osteoarthritis CAD s/p LINDSAY in December 2019, stable Hypothyroidism Condition on Discharge: Good Activity: Resume your previous activity Non-emergency contact: Primary Care Provider Call non-emergency contact if: you have any medication questions, your symptoms worsen, your pain is not controlled, your pain is worsening, your pain is unusual for you, your pain is concerning for you and you have a fever Follow-up/Referrals: Zeferino Aldrich DO [Primary Care Provider] - (Date & Time 07/12/2020 11:20 AM Provider Zeferino Aldrich DO Department [facility] ) Diet: Regular Addtl Attending Provider Instructions: Please take all medications as instructed on discharge list below. While hospitalized your TSH was found to be very low and this should be reevaluated and potentially rechecked by your primary care provider on follow- up. This was an incidental finding and likely had nothing to do with your shoulder pain. As we discussed please limit repetitive motion injury that causes you pain when using your right shoulder. Please continue to use ice or cold packs every day, 20 minutes on 20 minutes off as tolerated. Please continue to use prescribed clonazepam 0.5mg every 8 hours together with Tylenol 1000mg every 8 hours to help with symptoms of pain and discomfort. Stop this therapy when you are improved. Do not exceed more than 3000mg of Tylenol (acetaminophen in 24 hours). While taking the new lower dose of clonazepam more frequently, please don't take your previously prescribed Ultracet (tramadol) or your clonazepam 1mg dose at night, as this can cause a severe medication interaction or overdose. It is recommended that you follow-up with your primary care doctor within 1 week of discharge to ensure your shoulder pain is improved. It was a pleasure taking care of you! Please call if you have any questions or problems. You can reach a [facility] hospitalist on duty at [facility] 24 hours a day by calling [phone]. Take care of yourself. Savannah Hutton DO [facility] Hospitalist Pending Studies at Discharge: No Stand-Alone Forms: My [facility] Medications and DC Order Prescriptions: New clonazepam 0.5 mg Tablet 0.5 mg PO Q8H Qty: 20 RF: 0 acetaminophen 500 mg Tablet 1,000 mg PO Q8H Qty: 20 RF: 0 Continued potassium chloride 10 mEq capsule, extended release 10 meq PO QDL RF: 0 atorvastatin 20 mg Tablet 20 mg PO PM RF: 0 clopidogrel 75 mg Tablet 75 mg PO QPM RF: 0 nitroglycerin [Nitrostat] 0.4 mg Tablet, Sublingual 0.4 mg sublingual UD PRN (Reason: Chest Pain) RF: 0 pantoprazole 40 mg Tablet,Delayed Release (Dr/Ec) 40 mg PO BID RF: 0 amlodipine 5 mg tablet 5 mg PO QAM RF: 0 lidocaine 5 % Adhesive Patch,Medicated 1 patch TOPICAL DIRECTED PRN (Reason: Back Pain) RF: 0 polyethylene glycol 3350 [Miralax] 17 gram/dose Powder 17 g PO QAM PRN (Reason: Constipation) RF: 0 Emergen-C 1,000 mg Powder Effervescent In Packet 1 ea PO QAM RF: 0 levothyroxine [Synthroid] 175 mcg tablet 175 mcg PO SUTUTHSA RF: 0 metoprolol succinate [Toprol XL] 50 mg tablet extended release 24 hr 50 mg PO QAM RF: 0 aspirin 81 mg Tablet,Delayed Release (Dr/Ec) 81 mg PO QAM RF: 0 citalopram [Celexa] 20 mg tablet 20 mg PO QAM RF: 0 ferrous sulfate [iron] 325 mg (65 mg iron) Tablet 325 mg PO QAM RF: 0 levothyroxine [Synthroid] 150 mcg tablet 150 mcg PO MOWEFR RF: 0 magnesium citrate 100 mg Tablet 100 mg PO BID RF: 0 Discontinued tramadol-acetaminophen [Ultracet] 37.5-325 mg tablet 1 tab PO QID PRN (Reason: Pain) RF: 0 clonazepam [Klonopin] 1 mg tablet 1 mg PO HS RF: 0 Discharge Orders: Discharge Order (Routine); Ordered 07/05/20 Ordered By: Savannah Hutton Admission Data Admit Date/Time: 07/04/20 17:49 Attending Provider: Savannah Hutton Admit Provider: Adan Stephenson Primary Care Provider: Zeferino Aldrich Other Providers: Ricco Pratt ; Tanmay Vyas ; Juan Diego Nails ; Lauri Coombs ; Wade Borrego ; Bruno Martinez ; Jenifer Ramírez ; Yovana Acuna ; Milton Granados ; Tao Javier Other Interventions: Discharge Summary Assessment (RN) Last Done: 07/05/20 17:25
--- NOTE | 2020-07-05 20:31 | Orthopedic Consultation ---
Date of Consultation July 05, 2020 Assessment & Plan (1) Right shoulder strain: Right shoulder strain, continue with conservative treatments at this time. Activity modification, ice, Tylenol, topical NSAIDs, patient unable to take PO nsaids due to bleeding, PT/OT. [place] [facility] [place] symptoms persist or worsen. Thank you for the consultation. History of Present Illness Reason for Consultation: Right shoulder pain Attending Physician: Savannah Hutton DO History of Present Illness The patient is a 70 year old female who presented to [facility] secondary to R shoulder/chest pain that started on 07/04/20. Patient has significant cardiac history and was admitted for ACS protocol, however the patient also has history of chronic right shoulder pain however she reported that this pain was different than her typical shoulder pain. Patient followed by cardiology and ruled out. The patient reports that on 07/03/20 she was lifting a heavy chair. Pain localized to her right scapula, flank and into her right chest. Denies trauma, denies numbness or tingling in her RUE. Allergies Allergy/AdvReac Type Severity Reaction Status Date / Time procaine Allergy Unknown UNKN Verified 03/17/20 10:27 aspirin AdvReac Mild BLEEDING Verified 03/17/20 10:27 ibuprofen AdvReac Unknown BLEEDING Verified 03/17/20 10:27 Home Medications Medication Instructions Recorded Confirmed Type aspirin 81 mg PO QAM 01/09/20 07/03/20 History citalopram [Celexa] 20 mg PO QAM 01/09/20 07/03/20 History ferrous sulfate [iron] 325 mg PO QAM 01/09/20 07/03/20 History levothyroxine [Synthroid] 150 mcg PO MOWEFR 01/09/20 07/03/20 History levothyroxine [Synthroid] 175 mcg PO SUTUTHSA 01/09/20 07/03/20 History magnesium citrate 100 mg PO BID 01/09/20 07/03/20 History metoprolol succinate [Toprol XL] 50 mg PO QAM 01/09/20 07/03/20 History potassium chloride 10 meq PO QDL 01/29/20 07/03/20 History atorvastatin 20 mg PO PM 03/12/20 07/03/20 History clopidogrel 75 mg PO QPM 03/12/20 07/03/20 History nitroglycerin [Nitrostat] 0.4 mg SUBLINGUAL UD PRN 03/12/20 07/03/20 History pantoprazole 40 mg PO BID 03/15/20 07/03/20 History Emergen-C 1 ea PO QAM 07/03/20 07/03/20 History amlodipine 5 mg PO QAM 07/03/20 07/03/20 History lidocaine 1 patch TOPICAL DIRECTED PRN 07/03/20 07/03/20 History polyethylene glycol 3350 [Miralax] 17 g PO QAM PRN 07/03/20 07/03/20 History acetaminophen 1,000 mg PO Q8H #20 tab 07/05/20 Rx clonazepam 0.5 mg PO Q8H #20 tab 07/05/20 Rx Patient History Medical History (Updated 07/05/20 @ 20:28 by Dionte Camacho DO) CKD (chronic kidney disease), stage III Hematest positive stools plan to do colonoscopy 03/17 Hx of fall 2017 had fallen from being tripped by dogs, had multiple bruises and sutures in head and injury to clavicle and still has problems with shoulder movement Hypertension Hypertriglyceridemia Hypothyroidism Thrombocytopenia Surgical History History of meningioma of the brain removed was having migraines and then found to have meningioma of the brain History of partial hysterectomy History of thyroidectomy Thyroid storm Hx of appendectomy Hx of cardiac cath 01/12/2020 dr Grady at [facility], was seen at doctor office for chest pain and no feeling well.and was sent to hospital and failed chemical stress test and then taken to heart cath and has one stent LINDSAY Hx of decompressive lumbar laminectomy Hx of esophagogastroduodenoscopy S/P cholecystectomy Stented coronary artery PCI of mid LAD with LINDSAY. Small caliber distal circumflex to small for intervention. Medically manage. 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 Constitutional: WD/WN, vitals as above Results & Data ([facility]) Vital Signs (Past 12 Hours) Vital Signs Temp Pulse Pulse Resp BP Pulse Ox 07/05/20 17:25 36.7 C 70 59 L 18 146/67 H 95 07/05/20 16:01 36.7 C 70 18 146/67 H [address] shoulder RT wo con CLINICAL HISTORY: Right shoulder pain following fall. COMPARISON STUDY: No previous studies for comparison. TECHNIQUE: Axial images of the right shoulder were obtained without IV contrast. Sagittal and coronal reconstructions were viewed. Automated exposure control was utilized for the study. A dose lowering technique was utilized adhering to the principles of ALARA. FINDINGS: Alignment of the right shoulder is anatomic. No acute fracture is identified. There is moderate osteoarthritis of the right acromioclavicular joint. There is also osteoarthritis of the right glenohumeral joint. There is no evidence for dislocation. No suspicious osseous lesions are noted. No hematoma adjacent to the right shoulder is identified by CT. There is no right axillary lymphadenopathy. No right pneumothorax is noted. There is no right lung pulmonary contusion. No acute fractures are identified within visualized portions of the right-sided ribs. IMPRESSION: 1. No acute fracture or dislocation within the right shoulder. 2. Moderate osteoarthritis of the right shoulder.
== END 2020-07-05 18:45 | disposition home or self-care (01) | DRG 563 ==
LOC: ED 20:08 → 2S 20:08 → SUATTDRO 07-04 00:29 → 2S 07-04 01:14 → 2N 07-04 17:56

== ENCOUNTER 2021-03-24 06:57 | Observation (INO) ==
--- NOTE | 2021-03-24 08:15 | History & Physical Bridge Note ---
Date of Service March 24, 2021 History & Physical Bridge Note I have examined the patient, reviewed the History & Physical and in the interval since the performance of the History & Physical I have noted the following changes of clinical significance: no changes noted
--- NOTE | 2021-03-24 08:17 | Pre Anesthesia Assessment ---
Date of Service March 24, 2021 Pre Sedation Assessment Vital Signs Temp Pulse Pulse Resp BP Pulse Ox 03/25/21 10:10 58 L 03/25/21 07:49 36.7 C 62 18 160/78 H 98 03/25/21 04:32 36.5 C 67 18 123/67 95 03/24/21 23:31 36.8 C 65 18 152/69 H 97 03/24/21 21:00 165/74 H 03/24/21 20:00 36.6 C 62 18 179/79 H 97 03/24/21 15:45 36.6 C 64 18 130/66 97 03/24/21 14:30 58 L 03/24/21 13:55 58 L 132/71 95 03/24/21 13:47 63 03/24/21 13:30 63 03/24/21 13:20 36.7 C 58 L 18 136/72 95 03/24/21 13:15 63 03/24/21 13:05 36.6 C 62 18 155/75 H 95 03/24/21 12:30 64 18 144/77 H 96 03/24/21 12:15 69 18 151/75 H 96 03/24/21 12:00 78 18 137/74 96 03/24/21 11:45 65 18 145/67 H 98 03/24/21 11:30 56 L 18 152/68 H 96 03/24/21 11:15 57 L 18 163/69 H 98 03/24/21 11:00 58 L 18 150/89 H 98 03/24/21 10:45 61 18 157/79 H 98 Cardiovascular + regular rate and + regular rhythm + S1 normal and + S2 normal; no murmur no edema Respiratory normal respiratory effort, lungs clear to auscultation Pre-Sedation Airway Assessment Smoking Status: Former smoker Hx Sleep Apnea: No Hx Difficult Intubation: No 2 3 NPO Status Date of Last Intake of Fluids: 03/23/21 Date of Last Intake of Solid Food: 03/23/21 Procedure Planning Contraindications for Sedation: none Current Medications Reviewed: Yes Notes The planned sedation has been discussed with the patient. Informed Consent was obtained. I have identified the patient, determined the appropriateness of sedation and have assessed the patient immediately prior to the procedure. All medicine(s) and interventions are by my order.
[2021-03-24] MEDS ORDERED: HEPARIN (PORCINE) 1000 UNIT/ML 10 ML (CATH LAB USE ONLY) ONE ×2 (08:22→09:16)
[2021-03-24] MEDS ORDERED: niCARdipine HCL INJ 2.5 MG/ML 10 ML AMP ONE (08:22)
[2021-03-24] MEDS ORDERED: MIDAZOLAM HCL 1 MG/ML 2ML VIAL ONE ×2 (08:22→09:17)
[2021-03-24] MEDS ORDERED: fentaNYL citrate 100 MCG/2 ML VIAL ONE (08:22)
[2021-03-24] MEDS ORDERED: NITROGLYCERIN/D5W 100MCG/ML 20ML SYR ONE (08:23)
--- NOTE | 2021-03-24 09:16 | Post Anesthesia Assessment ---
Date of Service March 24, 2021 Post Sedation Assessment Vital Signs Temp Pulse Pulse Resp BP Pulse Ox 03/25/21 10:10 58 L 03/25/21 07:49 36.7 C 62 18 160/78 H 98 03/25/21 04:32 36.5 C 67 18 123/67 95 03/24/21 23:31 36.8 C 65 18 152/69 H 97 03/24/21 21:00 165/74 H 03/24/21 20:00 36.6 C 62 18 179/79 H 97 03/24/21 15:45 36.6 C 64 18 130/66 97 03/24/21 14:30 58 L 03/24/21 13:55 58 L 132/71 95 03/24/21 13:47 63 03/24/21 13:30 63 03/24/21 13:20 36.7 C 58 L 18 136/72 95 03/24/21 13:15 63 03/24/21 13:05 36.6 C 62 18 155/75 H 95 03/24/21 12:30 64 18 144/77 H 96 03/24/21 12:15 69 18 151/75 H 96 03/24/21 12:00 78 18 137/74 96 03/24/21 11:45 65 18 145/67 H 98 03/24/21 11:30 56 L 18 152/68 H 96 03/24/21 11:15 57 L 18 163/69 H 98 03/24/21 11:00 58 L 18 150/89 H 98 03/24/21 10:45 61 18 157/79 H 98 Recovery Score Activity: Moves 4 extremities Respiration: Deep Breath/Cough Circulation: +/-20% PreAnes Value Consciousness: Arouseable (by name) Oxygen Saturation: > 92% On Room Air Discharge Sedation Level of Care: Phase I Post Sedation Plan On clinical assessment, the patient appears to have tolerated the sedation without complications. Patient is recovering as anticipated. Patient will continue to be monitored by nursing and may be discharged when sedation discharge criteria are met per below protocol. Upon Completions of procedure up to 15 minutes continue every 5 minute vital signs and the P.A.R. score; then discharge to a Phase I or Fast Track to Phase II per the following guidelines: * Discharge Patient to appropriate Phase II area if PAR is 8 or greater or return to pre- procedure baseline. The post - procedure orders will be as directed. * If PAR score is less than 8 or not return to pre-procedure baseline then patient will follow Phase I monitoring till PAR is reached for Phase II. The Phase I may be done in procedure room or may call to secure a Phase I area. * If naloxone or flumazenil are used for reversal, hold in Phase I for continued monitoring from when last reversal dose was given for a minimum of 60 minutes or longer pending the nurse and/or physician discretion of patient condition before discharge to Phase II. Please call the Sedation Physician to re-evaluate and complete post-note for discharge to Phase II area. Do NOT discharge from procedure sedation or Phase 1 until post- sedation evaluation note is complete by procedure /sedation MD Sedation Discharge Instructions to be given to the patient at discharge to home.
--- NOTE | 2021-03-24 09:19 | Cardiac Catheterization ---
Cardiac Cath Procedure Full Procedure Date March 24, 2021 Pre-Procedure Diagnosis Pre-Procedure Diagnosis: Angina, Positive Stress Test and CAD AUC Score AUC Score: 8 Post-Procedure Diagnosis Post-Procedure Diagnosis: Severe CAD and Normal Intracardiac Pressures Procedure(s) Performed Procedure(s) Performed: Coronary Angiography and Left Heart Cath Trip Rider Lauri Coombs DO Occupational Therapy Assistant(s) Showers RN Estimated Blood Loss Estimated Blood Loss: 5cc Medication(s) Medication(s): Fentanyl, Heparin, Lidocaine 1%, Nicardipine, Nitroglycerin and Versed Summary of Findings Right dominant coronary anatomy. Patent proximal LAD stent 30% mid LAD stenosis 50% apical LAD stenosis 70% proximal LPL Hemodynamics Rest Ao:: 144/63/94 Final Ao: 166/62/100 LV: 158/1/11 Recommendations Recommendations: PCI without planned CABG (Patient to be evaluated by interventional cardiology. Consider PCI of left posterior lateral branch vessel for treatment of angina. Patient has been treated with both long-acting nitrates and calcium channel talya therapy.) Radiation Exposure (mGy) 759 Contrast (mls) 55 Drains Drains: N/A Anesthesia Moderate Sedation, Start 0838. End 0911. Sedation Monitor: Wei LYLES Procedural Complication(s) None Disposition Patient remained in Medical Voucher Clerk for PCI I attest to the content of the Intraoperative Record and any orders documented therein. Any exceptions are noted below. [facility] Data: Medical Voucher Clerk Cardiac Status Clinical evaluation leading to the procedure CAD Presenation: Positive Stress Test and Unstable angina Anginal Classification: CCS II Heart Failure: No Cardiogenic Shock within 24 Hours: No Cardiac Arrest within 24 Hours: No Imaging Studies Past 6 Months: Yes Stress Studies Past 6 Months: Yes Standard Exercise Test: No Stress Echocardiogram: No Stress Testing w/SPECT MPI: Yes - Positive and Risk/Extent of Ischemia (High) Coronary Anatomy Dominant: Right Left Main (% Stenosis): Normal LAD (% Stenosis): Proximal (20% proximal to patent stent), Mid (30%) and Distal (50%) D1 (% Stenosis): Normal (small vessel) Circumflex (% Stenosis): Proximal (30%) OM1 (% Stenosis): Mid (small vessel 1.5mm, 20% diffuse) L PL1 (% Stenosis): Normal L PL2 (% Stenosis): Proximal (70%) RCA (% Stenosis): Proximal (30%), Mid (diffuse disease with stenosis ranging from 10-30%) and Distal (20%) R PDA (% Stenosis): Mid (Mild luminal irregularities, 10%) R PL1 (% Stenosis): Mid (Mild luminal irregularities, 10%) Ramus (% Stenosis): Distal (20%) Diagnostic Physicians Name: Lauri Coombs DO Closure Device Recommendations: PCI without planned CABG (Patient to be evaluated by interventional cardiology. Consider PCI of left posterior lateral branch vessel for treatment of angina. Patient has been treated with both long-acting nitrates and calcium channel talya therapy.) Intraprocedure Events Significant Disection: No Perforation: No
[2021-03-24] MEDS ORDERED: CLOPIDOGREL BISULFATE 300 MG TAB ONE (09:44)
[2021-03-24] MEDS ORDERED: NITROGLYCERIN SL 0.4 MG/TAB TAB SL PRN (15:02)
[2021-03-24] MEDS ORDERED: POLYETHYLENE (MIRALAX) 17 GM PACK PO PRN (15:02)
[2021-03-24] MEDS ORDERED: LIDOCAINE 5% 1 PATCH TD PRN (15:02)
--- NOTE | 2021-03-24 15:14 | Cardiac Catheterization ---
[facility] Data: Channel Executive Cardiac Status Clinical evaluation leading to the procedure CAD Presenation: Positive Stress Test and Stable angina Anginal Classification: CCS III Heart Failure: No Cardiogenic Shock within 24 Hours: No Cardiac Arrest within 24 Hours: No Imaging Studies Past 6 Months: Yes Stress Studies Past 6 Months: Yes Stress Testing w/SPECT MPI: Yes - Positive and Risk/Extent of Ischemia (Low) Diagnostic Physicians Name: Yobany Grady MD Status: Elective Closure Device Percutaneous Entry Location: Radial Closure Device: Radial Band Recommendations: PCI without planned CABG (Patient to be evaluated by interventional cardiology. Consider PCI of left posterior lateral branch vessel for treatment of angina. Patient has been treated with both long-acting nitrates and calcium channel talya therapy.) PCI Indication: + Stress Test Lesion Segment Name: Proximal left PLB Culprit Artery: Yes Stenosis Prior to Rx (%): 70 Chronic Total Occlusion: No IVUS: No FFR: No Pre-Procedure MONSTER Flow: 3 Previously Treated Lesion: No Lesion Complexity: Non-High/Non-C Lesion Length (mm): 12 Thrombus Present: No Bifurcation Lesion: No Guidewire Across Lesion: Stenosis Post-Procedure (%): 0 Post-Procedure MONSTER Flow: 3 Devices(s) Deployed: Yes Yes Intraprocedure Events Significant Disection: No Perforation: No Cardiac Cath Procedure Full Procedure Date March 24, 2021 Pre-Procedure Diagnosis Pre-Procedure Diagnosis: Angina, Positive Stress Test and CAD AUC Score AUC Score: 8 Post-Procedure Diagnosis Post-Procedure Diagnosis: Severe CAD and Successful PCI Procedure(s) Performed Procedure(s) Performed: Coronary Angiography and Drug Eluting Stent Flour Blender Yobany Grady MD Lead Engineer(s) Showers RN Estimated Blood Loss Estimated Blood Loss: 10 Medication(s) Medication(s): Clopidogrel, Fentanyl, Heparin, Nicardipine, Nitroglycerin and Versed Summary of Findings Indication: Abnormal stress test, refractory angina Access: 6 Fr right radial artery Catheters: EBU 3.5 guide Findings: For full details of patient's coronary angiography please see cath report dictated by Dr. Coombs. Briefly, patient found to have patent prior LAD stent but 70% left PLB stenosis. Decision to proceed with PCI. -- PCI -- Antithrombotic therapy: Heparin, clopidogrel Procedure: Left main cannulated with EBU 3.5 guide Superintendent Maintenance [employer] 50 wire passed across lesion into distal vessel Left PLB lesion predilated with 2.0 compliant balloon Dilated lesion stented with 2.25 x 15 mm Noel drug-eluting stent Stent post-dilated with stent balloon IC vasodilators administered for spasm Post procedure MONSTER 3 flow, stent well expanded. Mild to moderate residual stenosis distal to stent. Vessel too small for additional stenting. Arterial Closure: TR band Summary: 1. Successful PCI of left PLB with single drug-eluting stent (2.25 x 15 mm [place]). Recommendations: To PCU for continued monitoring Reloaded with clopidogrel 600 mg in Channel Executive Continue dual-antiplatelet therapy for at least 1 year Consult cardiac Rehab Hemodynamics Rest Ao:: 155/59/101 Final Ao: 125/54/84 LV: 158/11 Recommendations Recommendations: PCI without planned CABG (Patient to be evaluated by i nterventional cardiology. Consider PCI of left posterior lateral branch vessel for treatment of angina. Patient has been treated with both long-acting nitrates and calcium channel talya therapy.) Specimens Specimens: None Radiation Exposure (mGy) 2280 Contrast (mls) 90 Fluids (cc crystalloids) Fluids (cc crystalloids): 52 Drains Drains: N/A Anesthesia Moderate Sedation, Start 09. End 09. Sedation Monitor: Wei LYLES Procedural Complication(s) None Disposition PCU I attest to the content of the Intraoperative Record and any orders documented therein. Any exceptions are noted below. [facility] Card Cath Procedure Codes Moderate Sedation Procedure 1: Sedation/Anesthesia: 79966 Mod Sedation by the same physician; Ea [id number] Minutes Stenting Procedure 1: Cardiovascular Stent Procedures: 44477 Perc transcatheter placement of intracoronary stent(s), with ang PG Care Time/CCT Total # of Minutes Spent Total Time Spent with Patient: Total time spent is greater than 50% in coordination of care (as documented) at patient's floor/unit and/or counseling patient:
[2021-03-24] MEDS ORDERED: guaiFENesin/DEXTROM SYRUP 100MG/10MG 5ML UDC PO PRN (15:23)
[2021-03-24] MEDS ORDERED: ACETAMINOPHEN 325 MG TAB PO PRN (15:29)
[2021-03-24] MEDS ORDERED: POTASSIUM CHLORIDE 10 MEQ TABCR PO STA (16:16)
[2021-03-24] MEDS: ACETAMINOPHEN 500 MG TAB PO SCH (16:58)
[2021-03-24] MEDS: clonazePAM 0.5 MG TAB PO SCH ×2 (16:58→21:41)
[2021-03-24] MEDS: traMADol HCL 50 MG TABLET PO PRN ×2 (17:02→23:22)
[2021-03-24] MEDS ORDERED: ATORVASTATIN 20 MG TAB PO SCH (21:00)
[2021-03-24] MEDS: PANTOprazole 40 MG TAB PO SCH (21:41)
[2021-03-24] MEDS: CLOPIDOGREL BISULFATE 75 MG TAB PO SCH (21:42)
[2021-03-25] MEDS: ACETAMINOPHEN 500 MG TAB PO SCH ×2 (00:14→07:58)
[2021-03-25] MEDS ORDERED: LEVOTHYROXINE SODIUM 150 MCG TABLET PO SCH (06:30)
[2021-03-25] MEDS: clonazePAM 0.5 MG TAB PO SCH ×2 (07:27→14:52)
[2021-03-25] MEDS: CLOPIDOGREL BISULFATE 75 MG TAB PO SCH (08:01)
[2021-03-25] MEDS: PANTOprazole 40 MG TAB PO SCH (08:03)
[2021-03-25] MEDS ORDERED: FERROUS SULFATE 325 MG TAB PO SCH (09:00)
[2021-03-25] MEDS ORDERED: ASPIRIN 81 MG ECTAB PO SCH (09:00)
[2021-03-25] MEDS ORDERED: ISOSORBIDE MONO EXTENDED REL 30 MG TABCR PO SCH (09:00)
[2021-03-25] MEDS ORDERED: CITALOPRAM 20 MG TAB PO SCH (09:00)
[2021-03-25] MEDS ORDERED: METOPROLOL SUCC 50MG EXT REL TAB PO SCH (09:00)
[2021-03-25] MEDS ORDERED: POTASSIUM CHLORIDE 10 MEQ TABCR PO SCH (09:00)
[2021-03-25] MEDS ORDERED: amLODIPine BESYLATE 5 MG TAB PO SCH (09:00)
--- NOTE | 2021-03-25 10:42 | Cardiology Progress Note ---
Date of Service March 25, 2021 Assessment & Plan (1) Exertional angina: (2) Status post angioplasty with stent: Plan: 62-year-old female presented for elective outpatient coronary angiography due to abnormal Lexiscan nuclear stress test demonstrating anterior ischemia. 70% left posterior lateral branch vessel treated with drug-eluting stent. There was a 50% apical LAD stenosis which appeared unchanged to prior angiography. The smallest stent available in our lab was 2.25 mm. The apical LAD stenosis appeared to be too small for intervention in our lab, therefore, medical management recommended. She will continue calcium channel talya therapy and long-acting nitrates. Chest pain-free this a.m. Post cardiac catheterization activity restrictions discussed. Reviewed importance of continuing dual antiplatelet therapy for a minimum of 6 months post percutaneous intervention. Admission and Anticipated Discharge Date Admission Date: March 24, 2021 Subjective Patient seen and examined at the bedside. No recurrent chest discomfort overnight. Telemetry reveals sinus rhythm. She is feeling well from a cardiovascular perspective. Tolerating her a.m. meal and medications. Mild wrist soreness without ecchymosis or hematoma. Review of Systems Review of Systems: All systems reviewed & are unremarkable except as noted in Subjective Physical Exam Constitutional: well developed and well nourished; no acute distress Respiratory: normal respiratory effort; no respiratory distress, no labored breathing and no retractions Auscultation: lungs clear to auscultation bilaterally; no crackles, no rales, no rhonchi and no wheezes Cardiovascular: Rate/Rhythm: regular rate and regular rhythm Heart Sounds: normal S1 and normal S2; no murmur Vessels: radial pulses present Gastrointestinal (Abdomen): Inspection/Auscultation: abdomen normal to inspection and normal bowel sounds; abdomen not distended Percussion/Palpation: abdomen soft; abdomen nontender, no guarding and abdomen not rigid Neurologic: CN's II-XI intact bilaterally; no focal motor deficits Motor/Sensory: no tremor Psychiatric: A+Ox3, euthymic affect Results & Data ([facility]) Vital Signs (Past 12 Hours) Vital Signs Temp Pulse Pulse Resp BP Pulse Ox 03/25/21 10:10 58 L 03/25/21 07:49 36.7 C 62 18 160/78 H 98 03/25/21 04:32 36.5 C 67 18 123/67 95 03/24/21 23:31 36.8 C 65 18 152/69 H 97
--- NOTE | 2021-03-25 10:43 | Discharge Summary ---
Date of Service March 25, 2021 Principal Diagnosis Coronary artery disease with exertional angina. Abnormal Lexiscan nuclear stress test. Status post drug-eluting stent implantation to the left posterior lateral branch vessel. Discharge Exam Constitutional well developed and well nourished; no acute distress Respiratory normal respiratory effort, lungs clear to auscultation normal respiratory effort; no respiratory distress, no labored breathing and no retractions Auscultation: lungs clear to auscultation bilaterally; no crackles, no rales, no rhonchi and no wheezes Cardiovascular Rate/Rhythm: regular rate and regular rhythm Heart Sounds: normal S1 and normal S2; no murmur Vessels: radial pulses present Extremities: no edema Gastrointestinal (Abdomen) Inspection/Auscultation: abdomen normal to inspection and normal bowel sounds; abdomen not distended Percussion/Palpation: abdomen soft; abdomen nontender, no guarding and abdomen not rigid Neurologic CN's II-XI intact bilaterally; no focal motor deficits Motor/Sensory: no tremor Psychiatric A+Ox3, euthymic affect Discharge Data Allergies Allergy/AdvReac Type Severity Reaction Status Date / Time procaine Allergy Unknown UNKN Verified 03/17/20 10:27 aspirin AdvReac Mild BLEEDING Verified 03/17/20 10:27 ibuprofen AdvReac Unknown BLEEDING Verified 03/17/20 10:27 Procedures Performed Operation Date: 03/24/21 08:00 Actual Procedures p Drug Eluting Stent SGl Vessel - Alejo Grady MD s Cath, Left with Cors and Vent - Lauri Coombs DO s Cineradiography w/Routine Exam - Alejo Grady MD Ordered Studies 03/24/21 06:35 CL Cath Imgs for PACS use only Routine Hospital Course (1) Exertional angina: (2) Status post angioplasty with stent: 62-year-old female presented for elective outpatient coronary angiography due to abnormal Lexiscan nuclear stress test demonstrating anterior ischemia. 70% left posterior lateral branch vessel treated with drug-eluting stent. There was a 50% apical LAD stenosis which appeared unchanged to prior angiography. The smallest stent available in our lab was 2.25 mm. The apical LAD stenosis appeared to be too small for intervention in our lab, therefore, medical management recommended. She will continue calcium channel talya therapy and long-acting nitrates. Chest pain-free this a.m. Post cardiac catheterization activity restrictions discussed. Reviewed importance of continuing dual antiplatelet therapy for a minimum of 6 months post percutaneous intervention. Total Time Total Time Spent Total Time Spent (In Minutes): 25 Discharge Plan Discharge Items Patient Disposition: Home - Self-Care Reason For Visit: UNSTABLE ANGINA Discharge Diagnosis: Exertional angina status post drug-eluting stent implantation to left posterior lateral branch vessel. Activity: Per Instructions section Non-emergency contact: Pediatric Immunologist Call non-emergency contact if: you have any medication questions, your symptoms worsen, your pain is unusual for you, your wound has increased redness, your wound has increased drainage and your wound pain has increased Follow-up/Referrals: Zeferino Aldrich DO [Primary Care Provider] - Diet: Heart Healthy Addtl Attending Provider Instructions: ACTIVITY RECOMMENDATIONS: It is common to feel weak and fatigue for a few days. * Do not drive or operate any motorized equipment for the next three days. * Limit stair usage (2 or 3 trips a day only) for the next three days. * Do not lift anything heavier than 10 pounds for the next three days. * Do not engage in vigorous exercise or any sports for the next five days. * You may shower the day after your procedure, but do not immerse the area for three days. Cleanse the site gently with soap and water. SPECIAL CARE INSTRUCTIONS: * You may replace the pressure dressing or band-aid the morning after the procedure. * After your procedure, it is normal to have a small bruise or small lump at the site. Examine your site daily for any change in the bruise or lump, redness, swelling, drainage or numbness. Notify your doctor if any change. BLEEDING: * If there is a small amount of bleeding at the site, lie down and apply firm pressure with a clean cloth for ten minutes. When the bleeding stops, lie quietly keeping the procedure limb straight for six hours. Notify your doctor as soon as possible. * If the bleeding does not stop after ten minutes or if there is a large amount of bleeding or spurting, call 911 immediately. Continue to lie down and hold firm pressure until help arrives. SKIN IRRITATION: * You may experience some redness and/or swelling in the area where radiation was administered. If any skin irritation occurs, please contact your family physici an. FOLLOW UP VISIT: Keep any scheduled doctor appointments. Pending Studies at Discharge: No Stand-Alone Forms: [facility], Smoking Cessation Medications and DC Order Prescriptions: Continued potassium chloride 10 mEq capsule, extended release 10 meq PO QDL RF: 0 atorvastatin 20 mg Tablet 20 mg PO PM RF: 0 clopidogrel 75 mg Tablet 75 mg PO QPM RF: 0 nitroglycerin [Nitrostat] 0.4 mg Tablet, Sublingual 0.4 mg sublingual UD PRN (Reason: Chest Pain) RF: 0 pantoprazole 40 mg Tablet,Delayed Release (Dr/Ec) 40 mg PO BID RF: 0 amlodipine 5 mg tablet 5 mg PO QAM RF: 0 lidocaine 5 % Adhesive Patch,Medicated 1 patch TOPICAL DIRECTED PRN (Reason: Back Pain) RF: 0 polyethylene glycol 3350 [Miralax] 17 gram/dose Powder 17 g PO QAM PRN (Reason: Constipation) RF: 0 Emergen-C 1,000 mg Powder Effervescent In Packet 1 ea PO QAM RF: 0 clonazepam 0.5 mg Tablet 0.5 mg PO Q8H Qty: 20 RF: 0 acetaminophen 500 mg Tablet 1,000 mg PO Q8H Qty: 20 RF: 0 metoprolol succinate [Toprol XL] 50 mg tablet extended release 24 hr 50 mg PO QAM RF: 0 aspirin 81 mg Tablet,Delayed Release (Dr/Ec) 81 mg PO QAM RF: 0 citalopram [Celexa] 20 mg tablet 20 mg PO QAM RF: 0 ferrous sulfate [iron] 325 mg (65 mg iron) Tablet 325 mg PO QAM RF: 0 magnesium citrate 100 mg Tablet 100 mg PO BID RF: 0 levothyroxine [Synthroid] 175 mcg Tablet 175 mcg PO 2XWK RF: 0 tramadol-acetaminophen 37.5-325 mg Tablet 1 tab PO Q6 PRN (Reason: Pain) RF: 0 isosorbide mononitrate 30 mg Tablet Extended Release 24 Hr 30 mg PO DAILY RF: 0 levothyroxine [Synthroid] 150 mcg Tablet 150 mcg PO DAILY RF: 0 furosemide 20 mg Tablet 20 mg PO PRN (Reason: fluid build up) RF: 0 Mucinex DM 30-600 mg Tablet Extended Release 12 Hr 1 tab PO Q12H PRN (Reason: Congestion) RF: 0 Discharge Orders: Discharge Order (Routine); Ordered 03/25/21 Ordered By: Lauri Coombs Admission Data Admit Date/Time: 03/24/21 09:43 Attending Provider: Lauri Coombs Admit Provider: Lauri Coombs Primary Care Provider: Zeferino Aldrich
[2021-03-25] MEDS: traMADol HCL 50 MG TABLET PO PRN (14:06)
--- NOTE | 2021-03-25 17:13 | Electrocardiogram Report ---
Test Reason : Blood Pressure : / mmHG Vent. Rate : 055 BPM Atrial Rate : 055 BPM P-R Int : 174 ms QRS Dur : 096 ms QT Int : 460 ms P-R-T Axes : 042 006 022 degrees QTc Int : 440 ms Sinus bradycardia Otherwise normal ECG When compared with ECG of 03-JUL-2020 22:30, No significant change was found Confirmed by Frandy Mark ([id number]) on 03/25/2021 5:12:51 PM Referred By: Maria Guadalupe Gibson Confirmed By:Frandy Mark
[2021-03-27] MEDS ORDERED: LEVOTHYROXINE SODIUM 175 MCG TABLET PO SCH (06:30)
== END 2021-03-25 15:56 | disposition home or self-care (01) ==
LOC: 2S 06:57 → CC 06:57
DX: I10 Essential (primary) hypertension; Z79.82 Long term (current) use of aspirin; E89.0 Postprocedural hypothyroidism; Z79.890 Hormone replacement therapy; E78.5 Hyperlipidemia, unspecified; Z79.899 Other long term (current) drug therapy; I25.10 Atherosclerotic heart disease of native coronary artery without angina pectoris